=== PATIENT | male | born 1955 | race Caucasian/White ===

== ENCOUNTER → 2023-06-07 12:21 | Outpatient (REF) | payer OTHER, SELFPAY | LOC: RAD 12:21 | PROVIDERS: ATTENDING PHYSICIAN Internal Medicine Pulmonary Disease; FAMILY PHYSICIAN Family Medicine | DX: R91.1 Solitary pulmonary nodule (principal) | CPT/HCPCS: 71250 ==

== ENCOUNTER → 2024-08-15 09:05 | Outpatient (REF) | payer OTHER, SELFPAY | LOC: RAD 09:05 | PROVIDERS: ATTENDING PHYSICIAN Podiatrist; FAMILY PHYSICIAN Family Medicine | DX: I70.223 Atherosclerosis of native arteries of extremities with rest pain, bilateral legs (principal) | CPT/HCPCS: 93925 ==

== ENCOUNTER → 2024-09-03 07:56 | Outpatient (REF) | payer OTHER, SELFPAY | LOC: RAD 07:56 | PROVIDERS: ATTENDING PHYSICIAN Family Medicine | DX: I73.9 Peripheral vascular disease, unspecified (principal); F17.290 Nicotine dependence, other tobacco product, uncomplicated | CPT/HCPCS: 93922 ==

== ENCOUNTER → 2024-09-06 09:23 | Outpatient (REF) | payer OTHER, SELFPAY ==
[2024-09-06 10:43] LABS: Blood Urea Nitrogen 6 mg/dl (9-20); Calcium 10.1 mg/dl (8.4-10.2); Carbon Dioxide 28 mmol/L (22-30); Chloride 96 mmol/L (98-107); Glucose 88 mg/dl (70-99); Potassium 4.3 mmol/L (3.5-5.1); Sodium 129 mmol/L (135-145); eGFR > 60.00
== END ==
LOC: REG 09:23
PROVIDERS: ATTENDING PHYSICIAN Surgery Vascular Surgery; FAMILY PHYSICIAN Family Medicine
DX: I73.9 Peripheral vascular disease, unspecified (principal)
CPT/HCPCS: 36415; 80048

== ENCOUNTER → 2024-09-18 08:24 | Outpatient (REF) | payer OTHER, SELFPAY | LOC: RAD 08:24 | PROVIDERS: ATTENDING PHYSICIAN Surgery Vascular Surgery; FAMILY PHYSICIAN Family Medicine | DX: R09.89 Other specified symptoms and signs involving the circulatory and respiratory systems (principal); I73.9 Peripheral vascular disease, unspecified | CPT/HCPCS: 75635; 93880; Q9967 ==

== ENCOUNTER 2024-09-25 11:59 | Inpatient (IN) | payer OTHER, SELFPAY ==
[2024-09-25] VITALS (15 sets, daily range): BP systolic 0–172; BP diastolic 67–98
--- NOTE | 2024-09-25 10:25 | ED.GENMED ---
History of Present Illness
General
Chief Complaint: Vascular Symptoms
Source: patient
Exam Limitations: none
Time Seen by Provider: 09/25/24 09:51
Nursing documentation reviewed up to this point in time: agreed with
History of Present Illness
History of Present Illness:
see MDM
Phy Exam
Physical Exam
Physical Exam:
GENERAL: Alert , in no apparent distress
EYE: pupils equal and reactive
NECK: Supple
ENT: o/p clr, mmm.
CARDIAC: Regular rate and rhythm . Unable to palpate DP pulse on the right
LUNGS: Clear breath sounds bilaterally, no acute respiratory distress, no wheezes/rales/rhonchi
ABDOMEN: Soft, without focal tenderness, no r/g, no cvat, normal bowel sounds
NEUROLOGICAL: Alert and oriented, no focal neuro deficits
SKIN: Warm and dry, skin intact.
MUSCULOSKELETAL: Slightly swollen right lateral foot, 4th and 5th toes has mild erythema with weeping wound, purulence, foul-smelling, tender
PSYCH: Normal and appropriate interaction.
Course
Orders/Labs/Results
Orders:
Orders
09/25/24 Breakfast
NPO
Allow oral meds: No
Allow clear liquids: No
09/25/24 Lunch
NPO
Allow oral meds: Yes
Allow clear liquids: No
09/25/24 10:15
CRP [C-Reactive Protein] Urgent
Complete Blood Count/With Diff Urgent
Comprehensive Metabolic Panel Urgent
ESR [Erythrocyte Sed Rate] Urgent
PTT Urgent
Prothrombin Time Urgent
09/25/24 10:27
Foot, Right 3 View [CR Foot - Right Min 3 Views] Urgent
Comment:
Reason For Exam: right foot infection
09/25/24 10:39
Type+Screen Urgent
09/25/24 11:40
Admit/Transfer Patient As Directed
Co-Sign Provider:
Level of Care: Inpatient admission
Assign to:: Medical/Surgical
Physician / Group: Hospitalist
Diagnosis: limb threatening chronic ischemia
Reason for Hospitalization: Right foot wound
Expected length of stay greater than two midnights?: Yes
ELOS- Estimated Length of Stay in days: 2
I certify the patient meets the requirements for IP care: Yes
PRN Pain Medication Management As Directed
May give lesser potent ordered pain med per pt: Yes
preference::
Protocol:: Medication orders for pain may be administered in a
manner that supports deferring to patient preference
when the pt is:
- Requesting an ordered lesser potent pain medication.
Least to most potent pain medications are defined
as: acetaminophen < NSAID < tramadol < opioids
(morphine, oxycodone, hydromorphone).
- Requesting a lesser dose of the same medication IF
ORDERED.
- Requesting a less intrusive route of administration
if both routes are prescribed by the provider (PO <
IV).
09/25/24 11:43
Code Status As Directed
Resuscitation Status: Full Code
09/25/24 11:58
ABO2 Urgent
BBK Wristband Number:
Associate notified that ABO2 has been ordered: [id number]
Date: 09/25/24
Time: 10:47
Domestic Helper ID: US
09/25/24 12:57
Vascular Surgery Consult Routine
Consulting Provider: Devan Michaels
Was physician already notified: Yes
Intake/ Output As Directed
Frequency: Per unit guidelines
Vital Signs As Directed
Frequency: Per unit guidelines
DX Deep Vein Thrombosis Video Routine
09/25/24 18:00
Enoxaparin Sodium [Lovenox] 40 mg SC QPM
09/25/24 22:00
Amlodipine [Norvasc] 10 mg PO HS
09/26/24 06:00
Basic Metabolic Panel IN AM
Complete Blood Count/With Diff IN AM
09/26/24 08:00
Aspirin Low Dose EC [Aspir Low (Enteric Coated)] 81 mg PO DAILY
Furosemide [Lasix] 40 mg PO DAILY
Lisinopril [Zestril] 40 mg PO DAILY
Pantoprazole [Protonix] 40 mg PO DAILY
Rosuvastatin Calcium [Crestor] 10 mg PO DAILY
tiotropium-olodaterol [Stiolto Respimat] 2 puff INH R DAILY
Abnormal Lab Results
09/25/24
10:15
WBC 13.9 H 10^3/uL
(4.8-10.8)
RBC 4.31 L 10^6/uL
(4.70-6.10)
MCV 97.7 H fL
(80.0-94.0)
MCH 34.6 H pg
(27.0-31.0)
Plt Count 415 H 10^3/uL
(130-400)
Abs Immat Gran (auto) 0.1 H 10^3/uL
(0-0.05)
Absolute Neuts (auto) 10.9 H 10^3/uL
(1.4-6.5)
Absolute Lymphs (auto) 1.0 L 10^3/uL
(1.2-3.4)
Absolute Monos (auto) 1.4 H 10^3/uL
(0.1-0.6)
Immature Gran % 0.6 H %
(0-0.5)
Neutrophils % 78.6 H %
(42.2-75.2)
Lymphocytes % 7.2 L %
(20.5-51.1)
Monocytes % 9.8 H %
(1.7-9.3)
ESR 34 H mm/hour
(0-20)
Sodium 130 L mmol/L
(135-145)
Chloride 95 L mmol/L
(98-107)
BUN 5 L mg/dl
(9-20)
Glucose 131 H mg/dl
(70-99)
C-Reactive Protein 63.10 H mg/L
(0.0-10.00)
09/25/24 10:15
09/25/24 10:15
Vital Signs
Initial and Last Documented VS:
Initial Vital Signs
Temp Pulse Resp BP Pulse Ox
36.8 C 87 16 172/90 93
09/25/24 09:44 09/25/24 09:44 09/25/24 09:44 09/25/24 09:44 09/25/24 09:44
Last Documented Vital Signs
Temp Pulse Resp BP Pulse Ox
36.8 C 93 24 154/86 91
09/25/24 14:14 09/25/24 14:14 09/25/24 14:14 09/25/24 14:14 09/25/24 14:14
MDM/Problems Addressed
Differential Diagnosis Includes:
see MDM
MDM/Problems Addressed:
Note:
CHIEF COMPLAINT(S)
Non-healing wound on the foot.
HISTORY OF PRESENT ILLNESS
The patient is a 69-year-old male with a history of circulation problems. The patient presents with a non-healing wound on the foot, first noticed approximately two months ago. The wound has been progressively worsening and has begun to emit an
unpleasant odor, indicative of possible infection. The patient was initially evaluated by a vascular clinic and was advised to present to the emergency room, because he will require vascular surgery, he will go to the OR today. The patients
circulation issues, characterized by cold legs and no palpable pulse, have been ongoing and are likely contributing to the poor wound healing.
PAST MEDICAL AND SURGICAL HISTORY
The patient has a history of circulation problems. No history of heart attack was explicitly mentioned.
CHRONIC MEDICAL CONDITIONS SIGNIFICANTLY AFFECTING CARE
The patient has documented circulation problems, likely peripheral artery disease given the vascular clinics involvement.
ALLERGIES
The patient does not report any known allergies.
SOCIAL HISTORY
The patient smokes. There is no mention of the type of product smoked or alcohol consumption.
PHYSICAL EXAM
- Cardiovascular: No palpable pulse in the legs.
lungs: end exp wheezing
msk: mild edema
erythema purulence, wound between 4th and 5th toes on R foul smelling, tender;
leg cool to touch
poor DP pulse
PROBLEM LIST
Acute:
- Non-healing foot wound.
- Potential foot infection.
Chronic:
- Circulation problems.
- Smoking habit.
PLAN
The plan includes the potential for surgical intervention today, as suggested by the vascular clinic. The patient is advised not to eat or drink in preparation for a possible operation. Doppler ultrasound assessment is needed to evaluate the
vascular flow to the affected area.
DIFFERENTIAL DIAGNOSIS
The Differential Diagnosis includes, in no particular order and is not limited to:
1. Peripheral Arterial Disease with Critical Limb Ischemia
2. Diabetic Foot Ulcer
3. Osteomyelitis
4. Cellulitis
5. Chronic Venous Insufficiency
6. Peripheral Neuropathy
7. Deep Vein Thrombosis
8. Necrotizing Fasciitis
9. Thromboangiitis Obliterans
10. Gout Flare-Up
69-year-old male with history of COPD, still smokes, chronic vasculopath, presents for 2 months of a nonhealing foot wound between his 4th and 5th toes on the right which is now weeping, foul-smelling, red and painful. He was seen by vascular
yesterday after having several checkups with them and they determined that he will require vascular surgery, patient will be taken to the OR today. He has been n.p.o. except for few sips of coffee this morning at 6:30 AM. He has not had any fever,
chills.
Patient is due to have a femoropopliteal bypass with a prosthetic valve.
He has a leukocytosis of 13. I will x-ray the foot and order antibiotics, admit to hospitalist
*Pulse Oximetry
SaO2: 93
Oxygen Mode of Delivery: Room air
Patient hypoxic: no (93)
*Critical Care Note
Total Time (30-74mins, 75-104mins- exclusive of procedures): Not Applicable
ED Attending Note
-
Portions of this chart may have been created with voice recognition software.� Occasional wrong word or��sound alike� substitutions may have occurred due to the inherent limitations of voice recognition software.
Discharge Plan
Departure
Patient Disposition: Admit
Date of Disposition: 09/25/24
Time of Disposition: 10:36
Admit to: Med/Surg
Presentation/result/management discussed w/ accepting MD/DO: Hospitalist
Condition: Fair
Covid-19: Not Applicable
Discharge Problem:
Wound of foot, Arterial disease
Interventions
Interventions:
*Risk Screen - Suicide Last Done: 09/25/24 10:05
*General Assessment Last Done: 09/25/24 10:05
*Neglect/Abuse Screening Last Done: 09/25/24 10:05
*ED- Fall Risk Assessment Last Done: 09/25/24 10:05
*ED COVID-19 Vaccine History Last Done: 09/25/24 10:05
*Nursing Disposition Last Done: 09/25/24 14:03
ED- Cardiac Assessment Last Done: 09/25/24 10:05
ED- Pulmonary Assessment Last Done: 09/25/24 10:05
ED-Skin Assessment Last Done: 09/25/24 10:05
Discharge Date and Time
Discharge Date/Time: 09/25/24 14:04
[2024-09-25 10:27] LABS: Hematocrit 42.1 % (39.0-52.0); Hemoglobin 14.9 g/dL (13.0-18.0); Mean Corp Hgb Conc. 35.4 g/dL (33.0-37.0); Mean Corpuscular Volume 97.7 fL (80.0-94.0); Nucleated Red Blood Cells % 0 % (-); Platelet Count 415 10^3/uL (130-400); Red Cell Dist. Width 12.0 % (11.5-14.5)
--- NOTE | 2024-09-25 10:33 | W.PN.UPDATE ---
Update Note
Progress Note Update
Patient seen our vascular office yesterday (09/24/2024) for progressing right foot wound, recommended ED evaluation for expedited revascularization as peripheral vascular disease has progressed to limb threatening chronic ischemia. Please see office
note below. Recommend admitting to hospitalist team given comorbidities, n.p.o., preoperative blood work, and initiation of antibiotics. Plan for revascularization today likely right femoral endarterectomy with Hennessy to popliteal arterial bypass
and possible right iliac stent. Relayed plan to ED provider.
[2024-09-25 10:36] LABS: INR 1.03; PT 14.0 Sec (11.4-14.6)
[2024-09-25 10:37] LABS: APTT 33.0 Sec (23.4-35.0)
[2024-09-25 10:45] LABS: ALT (SGPT) 11 U/L (0-50); AST (SGOT) 23 U/L (17-59); Albumin 3.7 g/dl (3.5-5.0); Alkaline Phosphatase 84 U/L (38-126); Blood Urea Nitrogen 5 mg/dl (9-20); Calcium 9.6 mg/dl (8.4-10.2); Carbon Dioxide 26 mmol/L (22-30); Chloride 95 mmol/L (98-107); Glucose 131 mg/dl (70-99); Potassium 3.8 mmol/L (3.5-5.1); Sodium 130 mmol/L (135-145); Total Protein 6.5 g/dl (6.3-8.2); eGFR > 60.00
[2024-09-25 10:49] LABS: C-Reactive Protein 63.10 mg/L (0.0-10.00)
--- NOTE | 2024-09-25 12:03 | HPS.HSE ---
Family Physician
-
Family Physician: Carl Samuel
Chief Complaint
-
foot wound
History of Present Illness
69 yo M PMH COPD, HTN has a right foot wound between 4th/5th toes for > 2 months, however a few days ago it has purulence, redness, and pain. He has experienced claudication for months in the right lower extremity with pain at rest.
Went to vascular surgery office yesterday and was advised to present to ER for expedited vascular surgery given concern for limb threatening chronic ischemia. He reports pain in right foot but is able to move all toes and sensation to foot is
grossly intact. He denies feeling feverish or chills.
In ED,
VS: 36.8 C, HR 87, RR 16, BP 140/70, Pulsox 93%
Labs n/f WBC 13.9, Plt 415
He was admitted with plans for OR today and started on IV vancomycin.
Medical History
Past Medical History
Past Medical History: Reports COPD, GERD and HTN
Additional Past Medical History:
peripheral arterial disease, alcohol dependence (3 beers/day)
Past Surgical History: Reports Other
Additional Past Surgical History:
no reported hx of revascularization
Social History
Tobacco: Smoker (0.5ppd for 'years')
Alcohol: Daily (3 beers/day)
Drug: None
Family History
Family History: Not pertinent
Allergies / Home Medications
Allergies reflects when Allergies were last updated in [employer].
Home Medications with original date entered in [employer]
Allergy/Medication List:
Allergies
Allergy/AdvReac Type Severity Reaction Status Date / Time
No Known Allergies Allergy Unverified 09/25/24 09:48
Home Medications
amlodipine 10 mg tablet (Norvasc) 10 mg PO HS 09/25/24
aspirin 81 mg tablet,delayed release 81 mg PO DAILY 09/25/24
furosemide 20 mg tablet (Lasix) 40 mg PO DAILY 09/25/24
lisinopril 40 mg tablet 40 mg PO DAILY 09/25/24
naproxen 375 mg tablet 375 mg PO DAILYPRN PRN mild pain 09/25/24
omeprazole 40 mg capsule,delayed release 40 mg PO DAILY 09/25/24
rosuvastatin 10 mg tablet (Crestor) 10 mg PO DAILY 09/25/24
therapeutic multivitamin 1 tab PO DAILY 09/25/24
tiotropium 2.5 mcg-olodaterol 2.5 mcg/actuation mist for inhalation (Stiolto Respimat) 2 puff inhalation R DAILY 09/25/24
Review of Systems
-
Constitutional: Reports No Symptoms
EENT: Reports No Symptoms
Respiratory: Reports No Symptoms
Cardiac: Reports No Symptoms
Abdomen/GI: Reports No Symptoms
Musculoskeletal: Reports No Symptoms
Physical Exam
Vital Signs
Vital Signs
Temp Pulse Resp BP Pulse Ox
98.3 F 87 16 140/70 93
09/25/24 09:44 09/25/24 09:44 09/25/24 09:44 09/25/24 10:13 09/25/24 10:27
Physical Exam
General: No Apparent Distress
HEENT: NormoCephalic
Respiratory: Wheezes (at end expiration)
Cardiac: Regular Rhythm and Other (no murmurs on my exam)
GI: Soft and Non Tender
Musculoskeletal: Other (both feet are edematous to the level of the ankles, R > L)
Skin: Other (wound on 4th/5th toe with purulence, skin is cool to touch, pulses not palpable b/l (pos. tibial, dorsal pedis); sensation is intact and ablde to move all toes)
Neuro: AO x 3 and Nonfocal/grossly intact
Psych: Calm
Laboratory Results
-
09/25/24 10:15
09/25/24 10:15
Laboratory Results
PT 14.0 Sec (11.4-14.6) 09/25/24 10:15
INR 1.03 09/25/24 10:15
APTT 33.0 Sec (23.4-35.0) 09/25/24 10:15
Total Bilirubin 0.7 mg/dl (0.2-1.3) 09/25/24 10:15
AST 23 U/L (17-59) 09/25/24 10:15
ALT 11 U/L (0-50) 09/25/24 10:15
Alkaline Phosphatase 84 U/L (38-126) 09/25/24 10:15
CRP 63.1
Studies:
Abdominal CT 09/18/2024
IMPRESSION:
1. RIGHT LOWER EXTREMITY: Severe peripheral arterial disease. Multifocal 50-75% stenoses within the right common iliac artery and right external iliac artery. Occlusion of the right internal iliac artery near the origin. Suspected occlusion of the
distal right common femoral artery, with reconstitution of the profunda femoris artery. Right SFA is occluded near its origin, with reconstitution of the mid and distal SFA. High-grade stenosis within the right distal SFA.
2. LEFT LOWER EXTREMITY: Moderate peripheral arterial disease. Multifocal 50-75% stenoses of the left external iliac artery. Approximately 50% stenosis of the left common femoral artery. Greater than 75% stenosis of the proximal left SFA. Multifocal
50-75% stenoses of the remainder of the left SFA.
3. Asymmetric atrophy of the left kidney relative to the right, which may be related to left renal arterial high-grade stenosis and possible focal occlusion near the origin.
4. Estimated 50-75% stenosis of the proximal SMA.
5. Groundglass airspace consolidation at the left lung base, which may represent subsegmental atelectasis or pneumonia.
6. Calcified pleural plaque at the right lung base, consistent with asbestos related pleural disease.
7. Mild prostatic enlargement.
Ankle Brachial indices from 09/03/2024
right: 0.33
left: 0.67
Impression/Plan
-
In summary, this is a 69 yo M who is a vasculopath with a chronic wound on right foot that has worsened with erythema, purulence concerning for an skin/subcutaneous tissue infection.
# Limb threatening chronic ischemia
# Peripheral arterial disease
- wound ulcer present in right foot for several months
- progressively worsened with concern now for superimposed infection
- sequelae of long standing peripheral arterial disease
- skin on lower extremities exhibits coolness, pallor, but no paresthesias or paralysis. He endorses pain - claudication, and tenderness to the wound
- CT angiogram shows occlusive plaque burden and KIMBERLI on right of 0.33, supports PAD
- per vascular surgery, plan is today OR for revascularization today
- trend CBC, monitor VS, f/u vascular surgery recommendations
# SSTI - infected foot ulcer
- purulence (on my exam) on right foot now points towards a skin/subcutaneous tissue infection
- sequelae of longstanding peripheral arterial disease
- ddx: localized wound ulcer infection, septic arthritis, cellulitis, abscess
- wound healing is impaired due to PAD and above
- afebrile but leukocytosis and thrombocytosis support ongoing infection
- IV vancomycin started
- f/u vascular surgery recommendations
# Tobacco/EtOH Substance abuse
- Ongoing tobacco use
- nicotine patches
- monitor for EtOH withdrawal (3 beers daily)
- LFTs are within normal limits
# Chronic issues per below
# HTN - continue amlodipine 10mg daily, lisinopril 40mg daily, furosemide 20mg daily
# COPD - continue [id number] inhalers daily
# GERD - continue omeprazole 40mg daily
Disposition: pending further medical workup
Code status: Full
Diet: npo given plan for OR
[2024-09-25] MEDS: VANCOCIN 540 MG IV (12:52)
--- NOTE | 2024-09-25 15:09 | W.SUR.PREOP ---
Pre-Operative Surgical Note
-
I have examined this patient prior to the performance of the scheduled procedure.
The patient's condition is unchanged from the time of the current History and
Physical and the patient is able to undergo the scheduled procedure.
--- NOTE | 2024-09-25 15:55 | PHA.VAN.IN ---
Assessment
- Assessment
Renal Function: Appears similar to baseline
AUC Dosing Plan
- Dosing Variables
Dosing Weight (kg): 74
Dosing CrCl (ml/min): 98
Vd coefficient (L/kg): 0.7
- Empiric Dosing
Initial / Loading Dose: 2000mg - 09/25 12:52
Maintenance Regimen: Vanc 1000mg Q12H starting 09/26 0600
Estimated AUC (mcg*h/mL): 470
Estimated Peak (mcg*h/mL): 30
Estimated Trough (mcg/ml): 11.7
Estimated Half Life (H): 8.1
- Monitoring
No levels ordered at this time: consider levels in next few days
Pharmacokinetics Vancomycin I
- -
Patient Age: 69
Patient Sex: Male
Vancomycin Day #: 1
Indication: Skin And Soft Tissue
Requesting Provider: Dr. Ivory (resident)
Pertinent Antimicrobial Allergies:
NKDA
Height / Weight:
Height 5 ft 9 in
Actual Weight 74 kg
Pertinent Past Medical History: PAD
- Vital Signs / Lab Results
Temp Pulse Resp BP Pulse Ox
98.2 F 93 24 154/86 91
09/25/24 14:14 09/25/24 14:14 09/25/24 14:14 09/25/24 14:14 09/25/24 14:14
Lab Results - Hematology
09/25/24
10:15
WBC 13.9 H
Lab Results - Chemistry
09/25/24
10:15
BUN 5 L
Creatinine 0.7
Albumin 3.7
[2024-09-25 18:19] LABS: GGTP 28 U/L (15-73); Magnesium 1.5 mg/dl (1.6-2.3)
--- NOTE | 2024-09-25 19:10 | W.SUR.POST ---
Surgical Immediate Post Op
Note
Pre Op Diagnosis: Peripheral arterial disease, nonhealing wound
Post Op Diagnosis: Peripheral arterial disease, nonhealing wound
Procedure Performed: Right femoral endarterectomy with bovine pericardial patch angioplasty, right femoral to above-knee popliteal arterial bypass utilizing propatent graft, exploration of saphenous vein
Primary Surgeon: Devan Michaels M.D.
occupational therapist assistants: Teresa Das NP-C
Anesthesia: GETA
Estimated Blood Loss: 30 mL
Fluids: See anesthesia flowsheet
Drains/Shunts: N/A
Specimens/Cultures: Right femoral plaque
Doppler/Duplex/Angio (Y/N): Y, Doppler
Complications: None
Operative Findings: Successful arterial graft from right femoral to above-knee popliteal utilizing propatent graft and femoral endarterectomy, postoperatively patient had Doppler PT and AT signal
[2024-09-25 19:38] LABS: Hematocrit 37.6 % (39.0-52.0); Hemoglobin 13.1 g/dL (13.0-18.0); Mean Corp Hgb Conc. 34.8 g/dL (33.0-37.0); Mean Corpuscular Volume 97.7 fL (80.0-94.0); Platelet Count 374 10^3/uL (130-400); Red Cell Dist. Width 12.3 % (11.5-14.5)
--- NOTE | 2024-09-25 19:45 | OR.RPT ---
Operative Report
Operative Report
PROCEDURE DATE: 09/25/2024
Preoperative diagnosis: Chronic limb threatening ischemia right lower extremity with gangrene and rest pain right foot.
Postoperative diagnosis: Same
Procedure:
1. Extensive right iliofemoral endarterectomy (distal external iliac artery, common femoral artery, profunda femoris artery, origin of SFA) with bovine pericardial patch angioplasty and profundoplasty.
2. Right femoral to [id number] popliteal artery bypass with 8 mm ringed [place] Propaten graft.
Surgeon: Brando
Contracts Law Professor: MARTHA Das, required for all aspects of procedure including assistance with traction/countertraction, following the suture line, assistance with closure.
Complications: None
Anesthesia: General
Indications for procedure:
Chronic limb threatening ischemia. Worsening foot exam. Worsening rest pain. Concern for early infection of the foot as well. History of gangrene. CAT scan demonstrated severe atherosclerosis and severe plaque disease throughout with multilevel
occlusive disease. Risk/benefits/alternatives of urgent revascularization were all fully discussed. Patient understood all wish to proceed. I also strongly counseled patient regarding smoking cessation.
Description of procedure:
Patient was identified brought to the operating room placed on the table in supine position. After the adequate administration of anesthesia he was prepped and draped in the standard surgical fashion. A standard preoperative timeout was undertaken
and everybody was in agreement the plan. A longitudinal incision was made in the right groin is carried through the skin subcutaneous tissue with the electrocautery. We dissected down to the level of the inguinal ligament. Of note the tissues
were somewhat almost inflamed appearing chronically, dissected like scar tissue. Likely due to the inflammatory reaction secondary to the bulky plaque in the artery. However once down to the inguinal ligament we chiseled away at the common femoral
artery and carefully circumferentially dissected it. In the groin there was not really a pulse. However when we dissected underneath the inguinal ligament, I could palpate a good distal external iliac artery pulse. I dissected cephalad to the
lateral circumflex iliac artery branch, but just distal to the medial branch. The artery was soft and had a good pulse. I therefore passed a vessel loop around it here. In addition a vessel loop was passed around the circumflex iliac artery
branch. We chiseled down to the femoral bifurcation. The SFA also was noted to have heavy bulky plaque to palpation. I circumferentially dissected it (it was chronically occluded proximally) and passed Vesseloops around it. I now carefully
dissected the profunda. There were a couple crossing veins that had to be ligated between silk ties and then divided to allow better mobilization. After about 3 cm down the profunda (any branches were controlled with Vesseloops, just small
branches though no main branches), I noted that the artery was softened. Based on the CT scan also the artery was patent at this juncture. It was occluded only at its origin. Therefore I passed a vessel loop around it here. Now that I had
control of the femoral bifurcation, additional branch was controlled on the lateral/posterior aspect of the femoral bifurcation.
Now we turned our attention to exposing the distal target. A longitudinal incision was made in the medial distal thigh of the right leg that was carried through the skin to retained tissue with the electrocautery. We dissected through the crural
fascia layer. The sartorius muscle was reflected posteriorly. In the loose areolar fatty tissue we identified the popliteal artery and carefully dissected away from surrounding structures and great care to avoid any injury to structures. Is noted
to be relatively soft here. Vesseloops were passed around it proximally and distally.
Now that we had proximal and distal control I made an incision in the medial proximal calf that was carried through the skin subcutaneous tissue to identify the greater saphenous vein. The greater saphenous vein was identified. It looked marginal.
There was a branching point which I noted on ultrasound, and it became smaller after that. However it still seemed marginal at best. I continued to dissect it for another 5 cm or so but it was too small. I felt that this vein was not usable.
Therefore I felt the best option was to use a prosthetic at this point to the above-knee popliteal artery. Therefore at this point we then used a Aracelis tunneler to create a subsartorial tunnel between the 2 arterial exposure sites. Next the
patient was given 6000 units of intravenous heparin. Once this had circulated, the profunda was clamped distally with a profunda clamp, vessel loop around the SFA was tightened, all other branch Vesseloops were tightened, Derra clamp was placed on
the distal external iliac artery. An arteriotomy was made on the profunda with an 11 blade, and then it was extended proximally with a Marquis scissor. On the profunda there was chronic thickened soft plaque or intimal thickening. But on the distal
common femoral there was severe, severe coral reef bulky plaque. In addition at the proximalmost aspect of the common femoral/distal external iliac artery there was some associated thrombus here. I really struggle to endarterectomized as getting
the endarterectomy plane was more challenging than usual due to the bulky nature of the plaque. However I finally was able to get a reasonable plane. I then grasped the plaque and pulled it out proximally. I could inspect my endpoint against the
clamp and it looked good proximally. I teased out any fine debris with fine forceps. Now I reapplied my clamp a little bit more distally so that I have better control of the inflow. There is excellent pulsatile inflow pulsation proximal to the
clamp. I now grasped the remainder of the plaque in the common femoral artery and carefully endarterectomized it out and achieved a nice clean endpoint in the profunda. I then grasped the plaque and everted at the origin of the SFA. Once I did
this we meticulously removed any fine debris throughout the endarterectomy surface with fine forceps. Once this was done we irrigated heparinized saline. We then used a bovine pericardial patch and show patch angioplasty using a running 6-0
Prolene suture. Prior to completing and tying down the suture line the arteries were backbled, and heparinized saline flush. We then released clamps temporarily. Excellent pulsatile flow was noted in the common femoral and profunda. Hemostasis
was noted along the suture line.
Now I reapplied the clamps on the profunda and the common femoral artery. Arthrotomy on the patch (patchotomy) was made with an 11 blade and extended using a Marquis scissor. I now beveled an 8mm [place] Propaten ringed graft, and sewed an end-to-side
anastomosis using a running [place] CV 6 suture. A complete and tied down my suture line and then released the clamps on the kaw vessels. Excellent pulsatile flow was noted into the graft. Of course the graft clamp was placed on the graft after I
de-aired it/flushed out. Now I carefully passed it through the tunnel that we created. Care was taken to avoid any kinking or twisting. Any laxity was removed. We now reexposed the popliteal artery and the Vesseloops were double looped and
tightened proximally and distally. Arteriotomy was made with an 11 blade and extended using a Marquis scissor. There was slight thickening or plaque but do not result in any stenosis. Reasonably patent lumen. The graft was now beveled and an end
to side anastomosis was fashioned using a running [place] CV 6 suture. Prior to completing and tying down the suture line, the kaw artery was backbled, and the graft was flushed. I then flushed heparinized saline and completed and tied on the
suture line. Next I released the proximal popliteal artery vessel loop, and then released the graft clamp, and finally released the outflow vessel loop. Excellent pulsatile flow was noted in the popliteal artery distally. A significantly graft
augmented Doppler signal was noted. At this point I was very satisfied.
We now meticulously achieved hemostasis throughout incision sites. All sites were irrigated. The saphenous vein exploration incision was closed with 3-0 Vicryl followed by skin clips. The arterial sites were closed with layered Vicryl suture
using 2-0 Vicryl, 3-0 Vicryl running sutures followed by skin clips. Dressings were applied. The patient tolerated the procedure well. He had an excellent posterior tibial signal in the foot upon completion. All sponge, needle, instrument counts
were correct at the end of the case. The patient was transported to recovery room in stable condition.
[2024-09-25 19:51] LABS: APTT 36.3 Sec (23.4-35.0); INR 1.12; PT 15.0 Sec (11.4-14.6)
[2024-09-25 19:59] LABS: Blood Urea Nitrogen 5 mg/dl (9-20); Calcium 8.1 mg/dl (8.4-10.2); Carbon Dioxide 28 mmol/L (22-30); Chloride 98 mmol/L (98-107); Estimated Creatinine Clearance 115 ml/min; Glucose 114 mg/dl (70-99); Potassium 3.9 mmol/L (3.5-5.1); Sodium 132 mmol/L (135-145); eGFR > 60.00
[2024-09-25] MEDS: DILAUDID 0.5 MG IV ×2 (20:04→21:24)
[2024-09-25] MEDS: NSS 1000 IV (20:24)
--- NOTE | 2024-09-25 20:49 | PTCARENOTE ---
Addendum entered by Perla Landin RN 09/26/24 00:10:
Right 5th digit ulceration and necrosis posteriorly to foot pad, foul smelling purulent drainage between 4th and 5th digits of right foot.
Original Note:
Patient received from PACU via bed accompanied by RN and Tech. Patient transferred and admitted to ICU bed 3365. Patient is alert and oriented. CHG cloth bath given. Afib on CM. See automatic operator charted on worklist flowsheet. Left lung clear, right
lung with expiratory wheezes t/o. Currentlly on 4L/nc O2, sats 95-96%. S1S2 irregular. BLE PT and DP pulses positive with doppler. RLE pink, Warm and dry; LLE pale, warm and dry. Left Audrey in place, leveled and zeroed, correlates with cuff BP. RLE
with upper leg gauze and tegaderm CDI with SHYLA drain flashing orange--was reinforced by TORSION SPRING [employer]ILING MACHINE SETTER and MD aware. RLE lower leg with guaze and tegaderm dressing CDI with SHYLA drain flashing green. Bed in low and locked position, call montes within reach.
Johnson cath patent draining clear yellow urine. Speech is gruff. Patient with strong loose NPC. Patient c/o significant pain of right LE 8-9/10. Medicated for pain with prn pain meds, see MAR. Takes po ice chips without incident, takes po meds with
small sips well.
[2024-09-25 21:03] LABS: Glucose - Point of Care 126 mg/dl (70-99)
[2024-09-25] MEDS: ROXICODONE 5 MG PO (21:05)
[2024-09-25] MEDS: NORVASC 10 MG PO (21:15)
[2024-09-25] MEDS: NICODERM TRANSDERMAL 14 MG TRANSDERM (21:23)
[2024-09-25] MEDS: LOVENOX 40 MG SC (21:24)
[2024-09-25 21:47] LABS: Magnesium 1.7 mg/dl (1.6-2.3)
[2024-09-25] MEDS: MAGNESIUM SULFATE 100 IV (22:56)
--- NOTE | 2024-09-25 23:00 | PTCARENOTE ---
Patient allowed ice chips, passed swallow eval. Permssion received from Dr. Michaels to advance diet to clear liquids.
[2024-09-25 23:26] LABS: Urine Character Clear (Clear)
[2024-09-25 23:49] LABS: Urine Red Blood Cell 26-30 /HPF (0-2); Urine Squamous Cell 0-2 /LPF (Few)
[2024-09-26] VITALS (24 sets, daily range): BP systolic 89–126; BP diastolic 54–104; BMI 24.9
--- NOTE | 2024-09-26 | PTCARENOTE ---
Addendum entered by Perla Landin RN 09/26/24 00:35:
oxygen increased to 5L/nc
Original Note:
Patient noted with episodes of desaturation with sleep. Desats with sleep to 83-86%. Patient roused from sleep easily and encouraged to DB&C with sats improved. Pedal pulse palpable right foot, post tib via doppler. Otherwise, no significant change
in patient's physical assessment.
[2024-09-26] MEDS: ROXICODONE 5 MG PO ×4 (00:54→20:11)
--- NOTE | 2024-09-26 03:45 | PTCARENOTE ---
Patient has more frequent cough, loose and Nonproductive. Wheezes no longer audible on the right but RML and RLL have fine crackles, RUL and Left lung are clear. Oxygen decreased back down to 4L/nc. BP stable, ongoing Afib on CM. States pain of
right leg is tolerable. No other change in physical assessment. Dozing off and on intermittently when undisturbed. Ongoing hourly neurovascular checks.
[2024-09-26 04:54] LABS: Hematocrit 38.0 % (39.0-52.0); Hemoglobin 12.8 g/dL (13.0-18.0); Mean Corp Hgb Conc. 33.7 g/dL (33.0-37.0); Mean Corpuscular Volume 99.5 fL (80.0-94.0); Nucleated Red Blood Cells % 0 % (-); Platelet Count 377 10^3/uL (130-400); Red Cell Dist. Width 12.2 % (11.5-14.5)
[2024-09-26] MEDS: VANCOCIN 200 IV ×2 (05:01→17:24)
[2024-09-26 05:18] LABS: Blood Urea Nitrogen 9 mg/dl (9-20); Calcium 8.7 mg/dl (8.4-10.2); Carbon Dioxide 29 mmol/L (22-30); Chloride 98 mmol/L (98-107); Estimated Creatinine Clearance 98 ml/min; Glucose 130 mg/dl (70-99); HDL Cholesterol 50 mg/dl; LDL Cholesterol, Calculated 37 mg/dl; Potassium 4.3 mmol/L (3.5-5.1); Sodium 130 mmol/L (135-145); Very Low Density Lipoprotein 12 mg/dl (0-30); eGFR > 60.00
[2024-09-26 05:19] LABS: INR 1.10; PT 14.7 Sec (11.4-14.6)
[2024-09-26 05:20] LABS: APTT 38.9 Sec (23.4-35.0)
--- NOTE | 2024-09-26 07:08 | W.PN.HOSP.TC ---
Today's Communication/Plan
-
- plan for OR today with podiatry
- f/u vascular surgery recs
- f/u cardiology recs
- monitor CBC, VS
Assessment / Plan
Assessment / Plan
In summary, this is a 69 yo M
# Purulent cellulitis
# Peripheral artery disease s/p right iliofemoral endarterectomy with bovine plasty angioplasty and right fem pop bypass
# Limb threatening chronic ischemia
- 4th/5th toe wound present with purulence
- per podiatry, amputation of 4th/5th toe tentatively today (npo currently)
- IV vancomycin and cefepime added on
- monitor CBC (WBC likely is reactive from operation yesterday)
- monitor VS (Afebrile)
- continue rosuvastatin 20mg (LDL at goal)
- incentive spirometry
- f/u podiatry recs
- f/u vascular recs
# atrial flutter with controlled ventricular response
- new onset, occurred in PACU; was also supposed to follow-up with cardiology for cardiac ischemic workup
- cardiology recommends eventual anticoagulation but not at present given further surgical intervention
- check TSH, proBNP
- f/u cardiology recs
# Tobacco/EtoH use
- spiriva daily and duonebs prn for probable COPD
- nicotine patches
- credit counselor on smoking cessation
- monitor for EtOH symptoms
# Chronic issues per below
# HTN - continue amlodipine 10mg daily, lisinopril 40mg daily, furosemide 20mg daily
# COPD - continue mibktnodia-gdfttrk-vejifojoys inhalers daily
# GERD - continue omeprazole 40mg daily
DVTppx: enoxaparin
Code: full
Anticipated Discharge: > 48 hours
Subjective/Interval History
-
Date of Service: September 26, 2024
no overnight events, revascularization procedure yesterday
cardiolgoy and podiatry have been consulted
he's doing well
Objective Data
-
Labs:
Laboratory Results
09/25/24 09/26/24
19:27 04:43
WBC 16.2 H 16.3 H
Hgb 13.1 12.8 L
Hct 37.6 L 38.0 L
Plt Count 374 377
PT 15.0 H 14.7 H
INR 1.12 1.10
APTT 36.3 H 38.9 H
Sodium 132 L 130 L
Potassium 3.9 4.3
Chloride 98 98
Carbon Dioxide 28 29
BUN 5 L 9
Creatinine 0.6 L 0.7
Glucose 114 H 130 H
Calcium 8.1 L D 8.7
lipipd panel
triglycerides: 61
total cholesterol: 99
LDL: 37
VLDL 12
HDL 50
A1c 5.2
Vital Signs:
Vital Signs
Temp Pulse Resp BP Pulse Ox
97 F 85 14 118/74 96
09/26/24 03:01 09/26/24 07:00 09/26/24 07:00 09/26/24 04:00 09/26/24 07:00
I&O
09/25/24 09/26/24 09/27/24
06:59 06:59 06:59
Intake Total 1540 / 1540
Output Total 1658 / 1658
Balance -118 / -118
Review of Systems
-
History Source: Patient
Constitutional: Reports No Symptoms
EENT: Reports No Symptoms Reported
Respiratory: Reports Cough
Cardiac: Reports No Symptoms
Abdomen/GI: Reports No Symptoms
Genitourinary: Reports No Symptoms
Musculoskeletal: Reports No Symptoms
Skin: Reports No Symptoms
Neuro: Reports No Symptoms
Physical Exam
-
General: No Apparent Distress
HEENT: Normocephalic
Respiratory: Wheezes (expiratory)
Cardiac: Regular Rhythm and Other (no murmurs on my exam)
GI: Soft and Nontender
Musculoskeletal: Other (both feed edematous to level of ankles)
Skin: Other (wound on 4th/5th toes, pulses difficult to palpate on my exam at dorsalis pedis, pos tibial; sensation and movement grossly intact)
Neuro: Awake and Alert
Psych: Calm
--- NOTE | 2024-09-26 07:09 | PTCARENOTE ---
Report given verbally to oncoming shift, Lizzette NATION. Bedside rounds completed, questions answered.
--- NOTE | 2024-09-26 07:18 | CON.INTV ---
Consultation
Consultation Request
Date/Time Consultation Requested: 09/26
Date/Time Consultation Performed: 09/26
Reason for Consultation: Critical care
Medical History
-
History of Present Illness:
History obtained from the patient and reviewing inpatient and outpatient records. Patient is not a great historian. Patient is a 69-year-old male who presents to [facility] with with right foot discomfort. He was being evaluated for
white foot wound as an outpatient. He was seen in the vascular office, and there was a concern regarding ischemia. Patient was sent to [facility]. He subsequently underwent right femoral endarterectomy with bovine pericardial patch
angioplasty without significant complication 10/03. We are asked to help from critical care standpoint
Presently, he is without shortness of breath, chest pain, lightheadedness, nausea, abdominal pain. He denies leg pain, foot pain or groin pain at this time
Patient has been complaining of progressive claudication especially in the right calf and the right thigh as an outpatient. He had poorly healing ulcer in his right foot at the bottom of his fifth digit.
.
PMH: Hypertension, hyperlipidemia, GERD, COPD, alcohol dependence. 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
Past Medical History
Past Medical History: None (See above)
Past Surgical History: None (See above)
Social History
Tobacco: Smoker (50+ pack year, up to 1.5 pack/day, sometimes more)
Alcohol: Daily (4-12 beers a day)
Drug: None
Personal:
Living: Alone
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
Family History
Family History: Other (5 children. Father at 85, mother at 54 with heart issues. 9 siblings. 1 sister with cardiac stent)
Allergies / Home Medications
Allergies
Allergy/AdvReac Type Severity Reaction Status Date / Time
No Known Allergies Allergy Unverified 09/25/24 09:48
Home Medications
�Medication �Instructions �Recorded �Confirmed �Last Taken �Type
amlodipine 10 mg tablet (Norvasc) 10 mg PO HS 09/25/24 09/25/24 09/24/24 History
aspirin 81 mg tablet,delayed 81 mg PO DAILY 09/25/24 09/25/24 09/25/24 History
release
furosemide 20 mg tablet (Lasix) 40 mg PO DAILY 09/25/24 09/25/24 09/25/24 History
lisinopril 40 mg tablet 40 mg PO DAILY 09/25/24 09/25/24 09/25/24 History
naproxen 375 mg tablet 375 mg PO DAILYPRN PRN mild pain 09/25/24 09/25/24 09/25/24 History
omeprazole 40 mg capsule,delayed 40 mg PO DAILY 09/25/24 09/25/24 09/25/24 History
release
rosuvastatin 10 mg tablet (Crestor) 10 mg PO DAILY 09/25/24 09/25/24 09/25/24 History
therapeutic multivitamin 1 tab PO DAILY 09/25/24 09/25/24 09/25/24 History
tiotropium 2.5 mcg-olodaterol 2.5 2 puff inhalation R DAILY 09/25/24 09/25/24 09/25/24 History
mcg/actuation mist for inhalation
(Stiolto Respimat)
Review of Systems
-
All other systems: Negative unless noted
Vitals / Labs / Diagnostic Testing
Vital Signs
Temp Pulse Resp BP Pulse Ox
97 F 85 14 118/74 96
09/26/24 03:01 09/26/24 07:00 09/26/24 07:00 09/26/24 04:00 09/26/24 07:00
Lab Data
09/26/24 04:43
09/26/24 04:43
Laboratory Results
09/25/24 09/25/24 09/26/24
10:15 19:27 04:43
PT 14.0 15.0 H 14.7 H
INR 1.03 1.12 1.10
APTT 33.0 36.3 H 38.9 H
Diagnostic Testing:
Physical Exam
-
HEENT: Normocephalic, Anicteric, Other (Upper extremity) and Other (Missing teeth)
Cardiovascular: S1/S2, Regular Rhythm, Murmur (n), Rub (n) and Peripheral Edema (tr)
Respiratory: Wheeze (n), Rales (n), Rhonchi (n) and Non-Labored Respirations
GI: Soft, Distended and Non Tender
Neurology: Awake, Alert and No Motor Deficits (Moves all extremities)
Skin: Other (Right fifth toe ulcer, drainage, foul order) and Other (Multiple tattoos)
General: Comfortable
Assessment
-
69-year-old male with history of hypertension, peripheral vascular disease, with poorly healing right fifth toe, with progressive claudication symptoms as an outpatient. He is status post right femoral endarterectomy with bovine patch angioplasty
and right femoral to above-knee popliteal bypass 09/25/2024
s/p RFEA, right femoral to above-knee popliteal bypass
09/25/2024
Poorly healing right fifth toe ulcer at risk for amputation
Claudication symptoms progressive as outpatient
Right upper lobe nodule 8.[address] chest 06/07/2023
Chronic right lung volume loss likely from multiple traumas in the
Mediastinal calcification
Right middle lobe rounded atelectasis, per CT chest 06/26/2023
Conditions present prior to admission
Hypertension/hyperlipidemia
History of peripheral neuropathy
History of trauma, TBI
Complicated by multiple pneumothoraces
Pulmonary embolism, IVC filter
GERD
Suspected COPD
Daily alcohol use, 4 beers
[id number] history of smoking, ongoing
Plan/recommendations
At this time, patient remains critically ill but appears comfortable. He denies any pain
Right groin intact with dressing, distal pulses palpable, feet warm
Right fifth toe ulceration noted
Moving forward
Continue with IV fluids
Remains on empiric antibiotics, vancomycin for now. Patient may need broader antibiotic therapy but this will be deferred to primary service/vascular
Wound care consult, podiatry consult
Patient denies being on any antibiotics over the last few months although it appears he is a poor historian, poor memory
Tobacco cessation discussed. Nicotine replacement
Okay to continue Spiriva and Striverdi for now, patient on outpatient Stiolto
With regards to prior CT imaging, he is overdue for follow-up CT imaging, lung cancer screening. He is considered high risk for lung cancer
He will require follow-up for right upper lobe nodule. Would recommend CT chest as outpatient post discharge
DVT prophylaxis: Enoxaparin
GI prophylaxis: Remains on Protonix
[2024-09-26] MEDS: NSS IV (07:24)
--- NOTE | 2024-09-26 07:51 | W.PN.VS ---
Addendum entered and electronically signed by Devan Michaels MD 09/26/24 09:41:
Seen and examined with MARTHA Das. Agree with findings as noted below. Patient notes his rest pain in the right foot has resolved status post revascularization. No other complaints. Right lower extremity dressings are clean dry and intact. Groin
is flat. Thigh and calf are soft, no hematoma. Foot is warm with excellent dopplerable PT signal, possible weak pulsation. Plan/as discussed and noted below. Will ask cardiology for evaluation regarding A-flutter noted in postop setting.
Original Note:
Today's Communication / Plan
-
Patient seen and examined at bedside with Dr. Devan Michaels M.D., below plan reviewed with attending.
Assessment/Plan
-
Assessment: 69-year-old male POD #1Extensive right iliofemoral endarterectomy (distal external iliac artery, common femoral artery, profunda femoris artery, origin of SFA) with bovine pericardial patch angioplasty and profundoplasty. Right femoral
to [id number] popliteal artery bypass with 8 mm ringed [place] Propaten graft.
Plan:
Discontinue IV fluids
Discontinue Johnson catheter
Discontinue arterial line
Consult to cardiology as patient was undergoing cardiac ischemia workup prior to this procedure in the outpatient setting. However, when wound progressed to demonstrating chronic limb threatening ischemia patient was taken urgently to the OR
yesterday, anesthesia noted to our team in PACU a flutter was witnessed on bedside telemetry, unfortunately strip was not captured at that time. EKG today.
Consult to podiatry for right foot 4th and 5th digit wound
Out of bed to chair today
Incentive spirometry
Encourage smoking cessation education
Continue ICU level care today
Subjective Data
-
Date of Service: September 26, 2024
Patient seen and examined at bedside, reports well-managed postoperative pain. Denies nausea, vomiting, fever, and chills. Reports tolerating clear liquid diet.
Objective Data
-
Vital Signs
Temp Pulse Resp BP Pulse Ox
97 F 85 14 118/74 96
09/26/24 07:30 09/26/24 07:00 09/26/24 07:00 09/26/24 04:00 09/26/24 07:00
Intake and Output
09/25/24 09/26/24 09/27/24
06:59 06:59 06:59
Intake Total 1540 / 1540
Output Total 1658 / 1658
Balance -118 / -118
Intake:
Oral fluids 300 / 300
IV fluids (Total) 940 / 940
NSS 300 / 300
Nss 1,000 ml @ 80 mls/hr IV . 640 / 640
[id number] HARJIT Rx#:[id number]
IV piggybacks 300 / 300
Output:
Drain Output (Total) 0 / 0
Right Upper Leg 0 / 0
Urine, Johnson 1208 / 1208
Urine, Voided 450 / 450
Lab Results
09/26/24 04:43
09/26/24 04:43
Calcium 8.7 mg/dl (8.4-10.2) 09/26/24 04:43
Phosphorus Cancelled 09/25/24 14:18
Magnesium 1.7 mg/dl (1.6-2.3) 09/25/24 19:27
Total Bilirubin 0.7 mg/dl (0.2-1.3) 09/25/24 10:15
AST 23 U/L (17-59) 09/25/24 10:15
ALT 11 U/L (0-50) 09/25/24 10:15
Alkaline Phosphatase 84 U/L (38-126) 09/25/24 10:15
Total Protein 6.5 g/dl (6.3-8.2) 09/25/24 10:15
Albumin 3.7 g/dl (3.5-5.0) 08/20/25 10:15
Physical Exam
-
No apparent distress, resting bed comfortably
No tachycardia
No dyspnea on room air
ABD rotund, nontender, nondistended
Right lower extremity surgical stefanie dressing clean, dry, and intact, right PT and AT signal, right foot warm, right 4th and 5th digit wound remains unchanged, right foot warm
Johnson draining clear yellow urine
--- NOTE | 2024-09-26 08:00 | PTCARENOTE ---
Received pt. @ change of shift. Pt. drowsy, awakens to verbal stim, oriented x3, reports pain w in acceptable level. RLE neurovascular checks completed w off going RN- see flow sheet. A fib on monitor. +2 RLE edema. +dp/pt pulses d/l via doppler.
SpO2 95% on 4LNC; pt. reports this is his baseline O2 @ home. Auscultated dim/exp wheeze throughout. Occ harsh back end engineer cough @ x's. RT instructed pt. on use of IS; pt. demonstrated understanding. Tolerating diet. 16F mcallister in place draining yellow
urine. R 4th/5th toe necrotic venous wound covered w sterile 4x4 gauze; further orders received for podiatry lead applier. R thigh SHYLA dressing c/d/i; device flashing orange, vascular aware per nightshift RN. R knee SHYLA dressing c/d/i; device flashing
green. #18 R wrist w NSS @ 80mL/hr; #20 R AC patent, dressing c/d/i. L rad art line transduced, calibrated, and monitored; all ports patent and secured; correlates w cuff pressures. Pt. call simon casarez in reach, instructed on how to report care
concerns.
[2024-09-26] MEDS: SPIRIVA RESPIMAT 2.5 MCG 2 PUFF INH (08:04)
[2024-09-26] MEDS: STRIVERDI RESPIMAT 2 PUFF INH (08:04)
[2024-09-26] MEDS: ZESTRIL 40 MG PO (08:09)
[2024-09-26 08:10] LABS: Glycohemoglobin (HgbA1c) 5.2 % (4.0-5.6)
[2024-09-26] MEDS: ASPIR LOW (ENTERIC COATED) 81 MG PO (08:10)
[2024-09-26] MEDS: FOLVITE 1 MG PO (08:10)
[2024-09-26] MEDS: NICODERM TRANSDERMAL 14 MG TRANSDERM (08:10)
[2024-09-26] MEDS: LASIX 40 MG PO (08:10)
[2024-09-26] MEDS: PROTONIX 40 MG PO (08:10)
[2024-09-26] MEDS: VITAMIN B1 100 MG PO (08:10)
[2024-09-26] MEDS: CRESTOR 20 MG PO (08:10)
[2024-09-26 08:36] LABS: C-Reactive Protein 58.20 mg/L (0.0-10.00)
--- NOTE | 2024-09-26 08:58 | CON.CAR ---
Addendum entered and electronically signed by Digna Pollack PA-C 09/26/24 10:41:
Reviewed records obtained from [facility] patient was seen in our office as new patient 09/20/2024 and was in rate controlled atypical a flutter at that time. He was supposed to start Xarelto as of that visit, however unclear if he
did. He underwent echocardiogram 09/23/2024 with EF 70%, LA moderately dilated and RA mildly dilated, no wall motion abnormalities, mild MR, moderate TR, PAP 55 mmHg. He was scheduled to have a preoperative stress test, however then presented and
went urgently to the OR.
Addendum entered and electronically signed by Anatoly Thompson MD 09/26/24 09:50:
I saw and examined the patient.
The Channel Layer's note was reviewed and I agree with the note.
Comment:
GEN: No distress, awake, Ox3
HEENT: supple, anicteric, mmm
LUNGS: CTA, no wheezes/rales
CV: Irreg, S1/S2, 1/6 syst LSB, no gallop
ABD: soft, BS+, NT/ND
EXT: R foot wound
NEURO: Gross non-focal
SKIN: No rash
Plan:
69-year-old male with past medical history of tobacco abuse, alcohol use, hypertension, hyperlipidemia and right foot wound presented urgently for right iliofemoral endarterectomy with bovine plasty angioplasty and right fem pop bypass. Patient
reportedly saw [facility] cardiology prior to this admission. He reportedly had an echocardiogram which was unremarkable. Records are unavailable. We are asked to evaluate him for new onset rate controlled atrial flutter.
Patient overall did well with his procedure. We will review his echocardiogram as outpatient.
EKG has a flutter with controlled ventricular response. Chest Vascor is 3. He will require full anticoagulation. Will discuss with vascular surgery requiring timing of initiation of Eliquis.
Check TSH and proBNP. Lungs overall sound clear.
He remains on Lasix 40 mg p.o. daily.
Blood pressure is stable. Continue lisinopril, Norvasc. Will trend heart rates and consider low-dose beta-charo/calcium channel charo therapy.
Continue Crestor. Goal LDL 55.
Discussed smoking cessation.
Continue antibiotics with vancomycin and cefepime for foot wound.
Original Note:
Consultation
Consultation Request
Date/Time Consultation Performed: 09/26/24
Requesting Provider: Teresa RDZ
Performing Provider: Digna Pollack PA-C for Dr. Thompson
Reason for Consultation: aflutter
Medical History
-
Chief Complaint: non healing foot wound
History of Present Illness:
Patient is a 69-year-old male with past medical history of hypertension, hyperlipidemia, COPD with ongoing tobacco use, GERD, daily alcohol use who presented to the [facility] for evaluation of right foot pain. He was being evaluated per vascular as an
outpatient with concern for acute limb ischemia and therefore sent to the hospital for further evaluation. He was admitted and underwent urgent extensive right iliofemoral endarterectomy with bovine patch angioplasty and profundoplasty and right
femoral to shefj-jpn-[id number] popliteal artery bypass 09/25/2024. Cardiology consulted as patient was reportedly undergoing outpatient ischemic evaluation -patient is poor historian, but states he had EKG and echo last week. He denies chest pain,
shortness of breath, palpitations. He is unsure of his yarn examiner however states testing was done in [place]. EKG shows atrial flutter with controlled ventricular response. He was not anticoagulated prior to admission.
PMH:
PAD
HTN
HLD
COPD
GERD
Ongoing tobacco use
Daily ETOH use
Past Medical History
Past Medical History: Other (in HPI)
Social History
Tobacco: Smoker
Alcohol: Daily (3-4 beers)
Living: Alone
Employment: Retired
Family History
Family History: CAD (in mother in 50s, father in 80s)
Allergies / Home Medications
Allergy/AdvReac Type Severity Reaction Status Date / Time
No Known Allergies Allergy Unverified 09/25/24 09:48
�Medication �Instructions �Recorded �Confirmed �Type
amlodipine 10 mg tablet (Norvasc) 10 mg PO HS Blood Pressure 09/25/24 09/25/24 History
aspirin 81 mg tablet,delayed 81 mg PO DAILY Blood Clot 09/25/24 09/25/24 History
release Prevention/Tx
furosemide 20 mg tablet (Lasix) 40 mg PO DAILY Fluid 09/25/24 09/25/24 History
Retention/Swelling
lisinopril 40 mg tablet 40 mg PO DAILY Blood Pressure 09/25/24 09/25/24 History
naproxen 375 mg tablet 375 mg PO DAILYPRN PRN mild pain 09/25/24 09/25/24 History
omeprazole 40 mg capsule,delayed 40 mg PO DAILY Gastrointestinal 09/25/24 09/25/24 History
release Issue
rosuvastatin 10 mg tablet (Crestor) 10 mg PO DAILY High Cholesterol 09/25/24 09/25/24 History
therapeutic multivitamin 1 tab PO DAILY Supplement 09/25/24 09/25/24 History
tiotropium 2.5 mcg-olodaterol 2.5 2 puff inhalation R DAILY 09/25/24 09/25/24 History
mcg/actuation mist for inhalation Lung/Breathing Issues
(Stiolto Respimat)
Review of Systems
-
History Source: Patient
All other systems: Negative unless noted
Physical Exam
Vital Signs
Temp Pulse Resp BP Pulse Ox
97 F 100 20 113/54 96
09/26/24 07:30 09/26/24 08:30 09/26/24 08:30 09/26/24 08:10 09/26/24 08:43
Lab Results
09/26/24 04:43
09/26/24 04:43
Physical Exam
General: No Apparent Distress, Comfortable and Other (on supp O2. sitting in chair)
HEENT: Normocephalic, Anicteric and Moist Mucous Membranes
Respiratory: Wheezes and Non Labored Respirations
Cardiac: S1/S2 and Irregular Rhythm
GI: Soft, Non Tender, Non Distended and Normal Bowel Sounds
Musculoskeletal: No Clubbing, No Cyanosis and Edema (trace- 1+ edema of B/L LE)
Skin: Warm and Dry
Neuro: AO x 3
Impression / Plan
-
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
Assessment:
Presentation with RLE pain, concern for limb ischemia
PAD s/p urgent extensive right iliofemoral endarterectomy with bovine patch angioplasty and profundoplasty and right femoral to [id number] popliteal artery bypass 09/25/2024
Atrial flutter, new diagnosis of unclear duration, asymptomatic
HTN
HLD
COPD
GERD
Ongoing tobacco use
Daily ETOH use
Plan:
- Patient presented to [facility] with right lower extremity pain and concern for limb ischemia in the setting of a nonhealing wound and underwent urgent extensive right iliofemoral endarterectomy with bovine patch angioplasty and profundoplasty and
right femoral to ynyfx-ttq-vovw popliteal artery bypass by vascular surgery 09/25/2024.
- Continue postoperative care, pain mgmt, PT/OT, wound care
- Cardiology consulted postop as patient noted to have atrial flutter by EKG 09/25, rate controlled which is new diagnosis of unclear duration. Patient is asymptomatic. He remains in rate controlled A-fib versus a flutter on review of telemetry
overnight
- Heart rates relatively well-controlled without AV lucius blocking agent. If needed would consider transitioning Norvasc to Cardizem for rate control (as long as EF preserved by echo). Would attempt to avoid beta-charo given COPD and current
wheezing
- Requested records from [facility], awaiting for review. patient reports he had ekg and echo last week in office. if not, will check echo here
- discussed risk of CVA associated with atrial arrhythmias. [id number] score of 3 for age, HTN, vascular disease. discussed OAC with patient and he is agreeable to start. will plan to initiate OAC when ok from surgical standpoint. will have CM
assess cost to patient of xarelto (hopefully once daily dosing will encourage compliance). would continue asa in addition as discussed with vascular on 09/26.
- check TSH
- check proBNP. on po lasix 40mg daily. CXR 09/25 without clear evidence of acute CHF. also with COPD. wean supp O2 as able.
- encouraged smoking cessation
Data Reviewed
-
EKG: Tracing Personally Visualized and interpreted
Radiology: Report Reviewed by me
Labs: Labs Reviewed by me
Old Records: Requested and Reviewed
--- NOTE | 2024-09-26 09:00 | PHA.VAN.FU ---
Addendum entered and electronically signed by Callie Gunn [facility] 09/26/24 09:19:
Agree with Assessment and plan
Original Note:
Vancomycin Assessment / Plan
- Assessment
Renal Function: Stable
WBC's are: Trending Up
In the past 24 hrs, patient has been: Afebrile
- Dosing Plan
Continue: 1000mg q12h
- Monitoring Plan
No level(s) ordered at this time: consider within next few days
- Follow Up
Pharmacy will continue to follow.
Vancomycin Follow UP
- -
Patient Age: 69
Patient Sex: Male
Vancomycin Day #: 2
Indication: Skin And Soft Tissue
Requesting Provider: Dr. Ivory (resident)
Pertinent Antimicrobial Allergies:
NKDA
Height / Weight:
Height 5 ft 9 in
Actual Weight 76.3 kg
Pertinent Past Medical History: PAD
- Vital Signs / Lab Results
Temp Pulse Resp BP Pulse Ox
97 F 100 20 113/54 96
09/26/24 07:30 09/26/24 08:30 09/26/24 08:30 09/26/24 08:10 09/26/24 08:43
Lab Results - Hematology
09/25/24 09/25/24 09/26/24
10:15 19:27 04:43
WBC 13.9 H 16.2 H 16.3 H
Lab Results - Chemistry
09/25/24 09/25/24 09/26/24
10:15 19:27 04:43
BUN 5 L 5 L 9
Creatinine 0.7 0.6 L 0.7
Estimated Creat Clear 115 98
Albumin 3.7
Lab Results - Urine
09/25/24
23:12
Urine Nitrite Negative
Ur Leukocyte Esterase Negative
Urine WBC 3-5
Ur Squamous Epith Cells 0-2
Urine Bacteria Few A
--- NOTE | 2024-09-26 09:50 | WOUNDNOTE ---
R TOES (WOUNDS BETWEEN 3-4TH AND 4TH-5TH TOES)
--- NOTE | 2024-09-26 09:51 | WOUNDNOTE ---
R 5TH TOE
--- NOTE | 2024-09-26 09:51 | WOUNDNOTE ---
R 3-4TH TOE WEBSPACE
--- NOTE | 2024-09-26 09:52 | WOUNDNOTE ---
R GREAT TOE (SIDE OF)
--- NOTE | 2024-09-26 09:53 | WOUNDNOTE ---
[facility] RN note: Patient admitted with limb threatening chronic ischemia.
See H&P for complete history.
PMH: COPD, HTN, ETOH use, PAD, smoker.
Wound Location and type/assessment: Patient admitted with: dull red coccyx. R 3-4th and 4-5th toe webspace ulcers extending to plantar toe base necrotic odorous ulcers r/t PAD. Pedal pulses heard via portable Doppler.
Appetite: on low cholesterol diet.
Pressure redistribution devices in place: Musicnotes air bed. Air chair cushion. Patient stood with 1 assist during sacral/buttocks skin assessment.
Plan: RIOS Crocker was in to assist with patient standing during sacral skin assessment. Sacral shaped silicone border foam applied. Dressing applied to R toe ulcers (swabbed with Betadine, 1 ply gauze between 3-4, 4-5th toes). Instructed patient
pressure injury prevention measures including heel elevation while in bed. Protective foam applied to heels. Podiatry on consult who will manage toe wounds. Will follow peripherally as needed.
Care plan to be updated and will follow as needed.
Note to case management of requested for discharge: VN if goes home.
Patient to follow up with central office repairer supervisor and vascular upon discharge.
[2024-09-26] MEDS: STERILE WATER FOR INJECTION 10 ML IV ×3 (09:58→23:05)
[2024-09-26] MEDS: MAXIPIME 1000 MG IV ×3 (09:59→22:59)
[2024-09-26] MEDS: DILAUDID 0.5 MG IV ×3 (10:51→21:33)
[2024-09-26] MEDS: CARDIZEM CD 180 MG PO (10:52)
--- NOTE | 2024-09-26 10:52 | CM ---
Met with patient at bedside; initial assessment completed; signed IMM form on the chart from 09/25/24
Case Management Consult completed: Per [facility], Out of pocket cost for xarelto 20 mg 30 day supply, every PM is $12.15
Local Pharmacy verified: [facility] [address] [facility]
Patient reported he lives alone; 2nd floor apartment @ [facility]; no elevator access in the building; 12 steps to 2nd floor; railings both sides; bathroom has tub w/ shower; grab bar; has a shower chair
PLOF: reported he was independent w/ personal care; no device w/ ambulation; prepares his own meals; has assistance w/ some ADLs; has support from family; does not drive; retired
No history of SNF or Home Health utilization
[facility] counseling offered; patient declined; reported he sees a counselor in an outpatient setting PRN
Transport: antoniosin Domonique, will provide transport home
Plan Discharge to home when medically stable; case management will monitor for needs; and coordinate if identified
--- NOTE | 2024-09-26 11:08 | W.PN.UPDATE ---
Update Note
Progress Note Update
69 yo M presents with right foot wound infection
- tentative plan for OR today right 4th/5th toe amputation
-- will discuss with vascular
- patient to remain NPO
- МАРИНА RLE
--- NOTE | 2024-09-26 11:19 | PTCARENOTE ---
Vascular team to bedside this AM, further orders received. IVF d/c'd. L rad art line removed; pressure held until bleeding ceased and clean dressing applied. Johnson catheter d/c'd; pt dtv @ 1400. Pt. assisted to stand/pivot OOB to chair x1 @
0800; tolerated activity and remains tolerating chair position. Podiatry to bedside this AM; R toe(s) redressed and tentative plan for OR today; pt. NPO status ex meds/ice chips. Pain meds admin prior to podiatry redressing R toe wounds- see APR.
Call montes remains w in reach.
--- NOTE | 2024-09-26 16:21 | PTCARENOTE ---
Addendum entered by Lizzette Wills RN 09/26/24 18:07:
Received pt. direct back from OR @ 1705 s/p open R foot 4/5th toe amp. VSS. Dressing c/d/i; covered w compression. D/t new post op dressing unable to obtain R DP pulses; + R post tib and popliteal pulses by doppler. C/O severe pain- medicated w
prn- see MAR. Family @ bedside, updated. Call simon casarez in reach.
Original Note:
Report given to [employer] and pt. transported via bed to OR @ 1530; awaiting report back from OR.
--- NOTE | 2024-09-26 16:57 | W.PN.UPDATE ---
Update Note
Progress Note Update
69M s/p open R / toe amputations
- tentative return to OR Monday for closure
- NWB RLE
- continue abx
- cultures x2 sent to micro
- Dressings C/D/I
[2024-09-26] MEDS: XARELTO 20 MG PO (18:11)
--- NOTE | 2024-09-26 21:00 | PTCARENOTE ---
Neurovascular checks unchanged from previous shift.
--- NOTE | 2024-09-26 22:00 | PTCARENOTE ---
Pt c/o 10 out of 10 pain at rt foot surgical site. PRN dilaudid administered by this RN.
[2024-09-27] VITALS (18 sets, daily range): BP systolic 90–120; BP diastolic 61–98; PULSE 76–77; O2SAT 93; BMI 25.0
--- NOTE | 2024-09-27 | PTCARENOTE ---
Upon reassessment pt is resting comfortably.
[2024-09-27] MEDS: DILAUDID 0.5 MG IV ×4 (00:23→11:47)
[2024-09-27] MEDS: MAXIPIME 1000 MG IV ×4 (05:16→22:17)
[2024-09-27] MEDS: STERILE WATER FOR INJECTION 10 ML IV ×4 (05:16→22:17)
[2024-09-27 05:22] LABS: Hematocrit 39.4 % (39.0-52.0); Hemoglobin 13.2 g/dL (13.0-18.0); Mean Corp Hgb Conc. 33.5 g/dL (33.0-37.0); Mean Corpuscular Volume 101.5 fL (80.0-94.0); Platelet Count 378 10^3/uL (130-400); Red Cell Dist. Width 12.7 % (11.5-14.5)
[2024-09-27] MEDS: VANCOCIN 200 IV ×2 (05:47→18:20)
[2024-09-27 05:48] LABS: Blood Urea Nitrogen 13 mg/dl (9-20); Calcium 8.9 mg/dl (8.4-10.2); Carbon Dioxide 30 mmol/L (22-30); Chloride 97 mmol/L (98-107); Estimated Creatinine Clearance 86 ml/min; Glucose 99 mg/dl (70-99); Potassium 4.3 mmol/L (3.5-5.1); Sodium 129 mmol/L (135-145); eGFR > 60.00
[2024-09-27] MEDS: ROXICODONE 5 MG PO ×2 (07:01→10:59)
--- NOTE | 2024-09-27 07:10 | W.PN.HOSP.TC ---
Today's Communication/Plan
-
- f/u podiatry and vascular recs
- per cardiology, continue diltiazem, xarelto, furosemide, aspirin, lisinopril
- f/u wound culture; continue vancomycin and cefepime for now
Assessment / Plan
Assessment / Plan
In summary, this is a 69 yo M
# Purulent cellulitis s/p 4th & 5th toe amputation
# Peripheral artery disease s/p right iliofemoral endarterectomy with bovine plasty angioplasty and right fem pop bypass
# Limb threatening chronic ischemia
- 4th/5th toe wound present with purulence s/p amputation with podiatry on 09/26
- podiatry to close the wound on Monday, 09/30
- MRSA screen negative
- IV vancomycin and cefepime
- monitor CBC (WBC decreasing)
- monitor VS (Afebrile)
- continue rosuvastatin 20mg (LDL at goal) and aspirin
- incentive spirometry
- f/u podiatry recs
- f/u vascular recs
# atrial flutter with controlled ventricular response
- new onset, occurred in PACU; was also supposed to follow-up with cardiology for cardiac ischemic workup
- xarelto resumed 09/26 evening; will coordinate with podiatry regarding when to stop given back to OR on Monday for amputation closure
- TSH within normal limits; NTproBNP 900s (unsure baseline)
- per cardiology recs: continue diltiazem
- per cardiology, continue lisinopril and lasix
# Hyponatremia
- could be chronic given prior admission Na+ 129
- per cardiology, okay to continue lasix
# Tobacco/EtoH use
- spiriva daily and duonebs prn for probable COPD
- nicotine patches
- supervisor counseling and guidance on smoking cessation
- monitor for EtOH symptoms
- continue thiamine, folic acid
- continue spiriva
# Chronic issues per below
# HTN - continue amlodipine 10mg daily, lisinopril 40mg daily, furosemide 20mg daily
# COPD - continue qtwxypstbo-deuisbk-bbrujrfyqf inhalers daily
# GERD - continue pantoprazole 40mg daily
DVTppx: enoxaparin
Code: full
Anticipated Discharge: > 48 hours
Subjective/Interval History
-
Date of Service: September 27, 2024
feels okay this morning, had 4th/5th toe amputation 09/26 with podiatry
Objective Data
-
Labs:
Laboratory Results
09/27/24
05:07
WBC 13.8 H
Hgb 13.2
Hct 39.4
Plt Count 378
Sodium 129 L
Potassium 4.3
Chloride 97 L
Carbon Dioxide 30
BUN 13
Creatinine 0.8
Glucose 99
Calcium 8.9
WBC 13.8 from 16.3
Na+ 129 from 130
Cr 0.8 from 0.7
TSH 1.20
NT-proBNP 922
wound cultures pending
MRSA screen negative
Vital Signs:
Vital Signs
Temp Pulse Resp BP Pulse Ox
97.5 F 69 11 109/73 95
09/26/24 23:03 09/27/24 06:00 09/27/24 06:00 09/27/24 06:00 09/27/24 06:00
afebrile
I&O
09/26/24 09/27/24 09/28/24
06:59 06:59 06:59
Intake Total 1540 / 1620 140 / 140
Output Total 1658 / 1708 560 / 560
Balance -118 / -88 -420 / -420
Review of Systems
-
History Source: Patient
Constitutional: Reports No Symptoms
EENT: Reports No Symptoms Reported
Respiratory: Reports Cough
Cardiac: Reports No Symptoms
Abdomen/GI: Reports No Symptoms
Genitourinary: Reports No Symptoms
Musculoskeletal: Reports No Symptoms
Skin: Reports Sores (open wound on foot R)
Neuro: Reports No Symptoms
Physical Exam
-
General: No Apparent Distress
HEENT: Normocephalic
Respiratory: Clear to Auscultation (clear on my exam this AM)
Cardiac: Regular Rhythm and Other (no murmurs on my exam)
GI: Soft and Nontender
Musculoskeletal: Other (R foot in bandage s/p amputation of 4th/5th toe; able to move feet and toes )
Skin: Other (bandage over R foot; sensation and movement grossly intact)
Neuro: Awake and Alert
Psych: Calm
--- NOTE | 2024-09-27 07:16 | W.PN.INTV ---
Today's Communication / Plan
Recommendations
Continue with cefepime, vancomycin
Defer antibiotic therapy to primary service
Back to OR on Monday for closure of right amputation wound
Remains on aspirin
Resume outpatient inhaler therapy at time of discharge
Tobacco cessation reviewed
Reviewed pulmonary nodule on prior imaging. He will require follow-up CT imaging at time of discharge
This will be deferred to his primary physician
Our information was left in chart for follow-up as well
Transferred out of ICU. We will sign off. Please call with questions
Assessment
-
69-year-old male with history of hypertension, peripheral vascular disease, with poorly healing right fifth toe, with progressive claudication symptoms as an outpatient. He is status post right femoral endarterectomy with bovine patch angioplasty
and right femoral to above-knee popliteal bypass 09/25/2024
s/p RFEA, right femoral to above-knee popliteal bypass
09/25/2024
Poorly healing right fifth toe ulcer at risk for amputation
s/p 4th and 5th toe amputation 09/26
Claudication symptoms progressive as outpatient
Right upper lobe nodule 8.[address] chest 06/07/2023
Chronic right lung volume loss likely from multiple traumas in the
Mediastinal calcification
Right middle lobe rounded atelectasis, per CT chest 06/26/2023
Conditions present prior to admission
Hypertension/hyperlipidemia
History of peripheral neuropathy
History of trauma, TBI
Complicated by multiple pneumothoraces
Pulmonary embolism, IVC filter
GERD
Suspected COPD
Daily alcohol use, 4 beers
[id number] history of smoking, ongoing
Plan/recommendations
At this time, patient appears to be comfortable. Primary complaint is right leg discomfort.
Otherwise has no other complaints
Right groin intact with dressing, distal pulses palpable, feet warm
Right lower extremity bandage in place
Moving forward
Continue with management per vascular surgery and podiatry
Remains on empiric antibiotics, vancomycin/cefepime. Defer to primary service need for ID evaluation
Wound care consult, podiatry following
Patient denies being on any antibiotics over the last few months although it appears he is a poor historian, poor memory
Tobacco cessation discussed. Nicotine replacement
Discussed importance of tobacco cessation given comorbidities
Okay to continue Spiriva and Striverdi for now, patient on outpatient Stiolto
With regards to prior CT imaging, he is overdue for follow-up CT imaging, lung cancer screening. He is considered high risk for lung cancer
He will require follow-up for right upper lobe nodule. Would recommend CT chest as outpatient post discharge
I reviewed with patient high risk for lung cancer and possibly of his nodule being a lung cancer. Also reviewed the risk of not following up with imaging, diagnosis and treatment and increased risk for increased morbidity, mortality () from
lung cancer
DVT prophylaxis: Enoxaparin
GI prophylaxis: Remains on Protonix
For transfer out of ICU. We will sign off. Please call with questions
Subjective Dataa
Subjective Data
Date of Service:
Date of Service: September 27, 2024
Subjective:
Patient complaining of right leg pain. Otherwise denies chest pain, shortness of breath, nausea, abdominal pain. He has yet to have a bowel movement, not passing gas. Underwent right 5th and 4th toe amputation yesterday
Objective Data
Data Reviewed
Vital Signs / I&O / Oxygen:
Vital Signs
Temp Pulse Resp BP Pulse Ox
97.5 F 69 11 109/73 95
09/26/24 23:03 09/27/24 06:00 09/27/24 06:00 09/27/24 06:00 09/27/24 06:00
Intake and Output
09/26/24 09/27/24 09/28/24
06:59 06:59 06:59
Intake Total 1540 / 1620 140 / 140
Output Total 1658 / 1708 560 / 560 330 / 330
Balance -118 / -88 -420 / -420 -330 / -330
SaO2 95
Nasal Cannula flow liters per 4
minute
Physical Exam
General: Comfortable
HEENT: Normocephalic and Anicteric
Cardiovascular: S1-S2, Regular Rhythm, Murmur (n), Rub (n), Peripheral Edema (Right foot bandage in place) and Other (Groin intact)
Respiratory: Wheeze (n), Crackles (n), Rhonchi (few) and Non-Labored Respirations
GI: Soft, Distended and Non Tender
Neurology: Awake, Alert and No Motor Deficits (Moves all extremities)
Skin: Cyanosis (n), Jaundice (n) and Other (Multiple tattoos)
Labs/Micro/Reports
Lab Data
09/27/24 05:07
09/27/24 05:07
Microbiology
09/26/24 16:42 Toe Gram Stain - Preliminary
09/26/24 14:47 Foot - Right Gram Stain - Preliminary
[2024-09-27] MEDS: SPIRIVA RESPIMAT 2.5 MCG 2 PUFF INH (07:30)
[2024-09-27] MEDS: STRIVERDI RESPIMAT 2 PUFF INH (07:31)
--- NOTE | 2024-09-27 08:23 | W.PN.VS ---
Addendum entered and electronically signed by Mario Johnson III, MD 09/27/24 10:48:
This patient was seen and examined in collaboration with KENDELL Griffin. I agree with the history and physical exam as well as the assessment and plan.
Signed:
Mario Johnson III, MD
Vascular Surgery
[facility]
Original Note:
Today's Communication / Plan
-
Seen and assessed with Dr. Johnson
Assessment/Plan
-
Assessment: 69-year-old male POD #2 Extensive right iliofemoral endarterectomy (distal external iliac artery, common femoral artery, profunda femoris artery, origin of SFA) with bovine pericardial patch angioplasty and profundoplasty. Right femoral
to lkxph-mgb-knxv popliteal artery bypass with 8 mm ringed [place] Propaten graft.
Plan:
Physical therapy as tolerated
Appreciate cardiology
Wound care per podiatry
Defer to podiatry for weightbearing status/shoe
Incentive spirometry
Encourage smoking cessation education
Transferred to telemetry
Subjective Data
-
Date of Service: September 27, 2024
Patient seen at bedside this a.m. with Dr. Johnson. Patient offers no complaints at this time. No events overnight. Pulse exam unchanged.
Objective Data
-
Vital Signs
Temp Pulse Resp BP Pulse Ox
97.3 F 93 19 109/73 96
09/27/24 07:17 09/27/24 07:32 09/27/24 07:32 09/27/24 06:00 09/27/24 07:32
Intake and Output
09/26/24 09/27/24 09/28/24
06:59 06:59 06:59
Intake Total 1540 / 1620 140 / 140
Output Total 1658 / 1708 560 / 560 330 / 330
Balance -118 / -88 -420 / -420 -330 / -330
Intake:
Oral fluids 300 / 300 60 / 60
IV fluids (Total) 940 / 1020 80 / 80
NSS 300 / 300
Nss 1,000 ml @ 80 mls/hr IV . 640 / 720 80 / 80
[id number] HARJIT Rx#:[id number]
IV piggybacks 300 / 300
Output:
Drain Output (Total) 0 / 0
Right Upper Leg 0 / 0
Urine, Johnson 1208 / 1258 75 / 75
Urine, Voided 450 / 450 485 / 485 330 / 330
Lab Results
09/27/24 05:07
09/27/24 05:07
Calcium 8.9 mg/dl (8.4-10.2) 09/27/24 05:07
Phosphorus Cancelled 09/25/24 14:18
Magnesium 1.7 mg/dl (1.6-2.3) 09/25/24 19:27
Total Bilirubin 0.7 mg/dl (0.2-1.3) 09/25/24 10:15
AST 23 U/L (17-59) 09/25/24 10:15
ALT 11 U/L (0-50) 09/25/24 10:15
Alkaline Phosphatase 84 U/L (38-126) 09/25/24 10:15
Total Protein 6.5 g/dl (6.3-8.2) 09/25/24 10:15
Albumin 3.7 g/dl (3.5-5.0) 09/25/24 10:15
Physical Exam
-
No apparent distress, resting bed comfortably
No tachycardia
No dyspnea on room air
ABD rotund, nontender, nondistended
Right lower extremity surgical stefanie dressing clean, dry, and intact, right PT and AT signal, right wrapped by podiatry this morning, dressing dry
--- NOTE | 2024-09-27 08:33 | PHA.VAN.FU ---
Addendum entered and electronically signed by Callie Gunn [facility] 09/27/24 08:48:
Agree with assessment and plan
Original Note:
Vancomycin Assessment / Plan
- Assessment
Renal Function: SCR Increasing
WBC's are: Trending Down
In the past 24 hrs, patient has been: Afebrile
Concomitant Antimicrobials: cefepime
- Dosing Plan
Continue: 1000mg q12h
- Monitoring Plan
No level(s) ordered at this time: consider within next few days
- Follow Up
Pharmacy will continue to follow.
Vancomycin Follow UP
- -
Patient Age: 69
Patient Sex: Male
Vancomycin Day #: 3
Indication: Skin And Soft Tissue
Requesting Provider: Dr. Ivory (resident)
Pertinent Antimicrobial Allergies:
NKDA
Height / Weight:
Height 5 ft 9 in
Actual Weight 76.6 kg
Pertinent Past Medical History: PAD
- Vital Signs / Lab Results
Temp Pulse Resp BP Pulse Ox
97.3 F 93 19 109/73 96
09/27/24 07:17 09/27/24 07:32 09/27/24 07:32 09/27/24 06:00 09/27/24 07:32
Lab Results - Hematology
09/25/24 09/25/24 09/26/24
10:15 19:27 04:43
WBC 13.9 H 16.2 H 16.3 H
09/27/24
05:07
WBC 13.8 H
Lab Results - Chemistry
09/25/24 09/25/24 09/26/24
10:15 19:27 04:43
BUN 5 L 5 L 9
Creatinine 0.7 0.6 L 0.7
Estimated Creat Clear 115 98
Albumin 3.7
09/27/24
05:07
BUN 13
Creatinine 0.8
Estimated Creat Clear 86
Albumin
Microbiology Results
09/25/24 23:10 MRSA Screen - Final
Nose No Methicillin Resistant Staphylococcus aureus isolated.
09/26/24 16:42 Gram Stain - Preliminary
Toe
09/26/24 14:47 Gram Stain - Preliminary
Foot - Right
--- NOTE | 2024-09-27 08:41 | W.PN.CARDCBS ---
Today's Communication / Plan
-
Remains in rate controlled atrial flutter. Continue diltiazem. Recommend start Xarelto when okay with podiatry no more procedures scheduled.
Blood pressure overall stable. Continue lisinopril and diltiazem.
Continue antibiotics and medical therapy for PAD. Continue rosuvastatin and aspirin.
Continues to have hyponatremia. Okay to continue Lasix. Would free water restrict.
Impression / Plan
-
Primary Practical Nurse: [facility] ([facility])
Assessment:
Presentation with RLE pain, concern for limb ischemia
PAD s/p urgent extensive right iliofemoral endarterectomy with bovine patch angioplasty and profundoplasty and right femoral to wemwg-mtc-agnz popliteal artery bypass 09/25/2024
Atrial flutter, new diagnosis of unclear duration, asymptomatic
HTN
HLD
COPD
GERD
Ongoing tobacco use
Daily ETOH use
Echo 09/23/24: EF 70%, dilated atrium, mild MR, moderate TR, PA pressure 55
Plan:
-Remains in rate controlled atrial flutter. Continue diltiazem 180 mg daily. Recommend start Xarelto when okay with podiatry. Not sure if they plan further procedures.
-Echo was reviewed from [facility]. Ejection fraction is preserved with moderate TR and elevated PA pressures.
-proBNP is 900 and acceptable. Continue Lasix 40 mg daily. No clear signs of volume overload.
-Continue aggressive medical therapy for peripheral vascular disease. Continue rosuvastatin, and aspirin.
-Continue antibiotics for leg wounds and debridements
-Blood pressure is overall stable
- encouraged smoking cessation
Progress Note - Practical Nurse
Subjective
Date of Service: September 27, 2024
Denies chest pains and shortness of breath. Remains in rate controlled atrial fibrillation. Gets rare palpitations.
Objective
Labs:
09/27/24 05:07
09/27/24 05:07
Labs
Hgb 13.2 g/dL (13.0-18.0) 09/27/24 05:07
Hct 39.4 % (39.0-52.0) 09/27/24 05:07
Plt Count 378 10^3/uL (130-400) 09/27/24 05:07
PT 14.7 Sec (11.4-14.6) H 09/26/24 04:43
INR 1.10 09/26/24 04:43
APTT 38.9 Sec (23.4-35.0) H 09/26/24 04:43
Sodium 129 mmol/L (135-145) L 09/27/24 05:07
Potassium 4.3 mmol/L (3.5-5.1) 09/27/24 05:07
BUN 13 mg/dl (9-20) 09/27/24 05:07
Creatinine 0.8 mg/dL (0.7-1.3) 09/27/24 05:07
Glucose 99 mg/dl (70-99) 09/27/24 05:07
Vital Signs and I&O:
Vital Signs
Temp Pulse Resp BP Pulse Ox
97.3 F 93 19 109/73 96
09/27/24 07:17 09/27/24 07:32 09/27/24 07:32 09/27/24 06:00 09/27/24 07:32
Vital Signs
Temp Pulse Resp BP Pulse Ox
97.3 F 93 19 109/73 96
09/27/24 07:17 09/27/24 07:32 09/27/24 07:32 09/27/24 06:00 09/27/24 07:32
Intake & Output
09/25/24 09/26/24 09/27/24 09/28/24
06:59 06:59 06:59 06:59
Intake Total 1540 / 1620 140 / 140
Output Total 1658 / 1708 560 / 560 330 / 330
Balance -118 / -88 -420 / -420 -330 / -330
Physical Exam
Physical Exam
GEN: No distress, awake, Ox3
HEENT: supple, anicteric, mmm
LUNGS: CTA, no wheezes/rales
CV: Irreg, S1/S2, 1/6 syst LSB, no gallop
ABD: soft, BS+, NT/ND
EXT: No edema
NEURO: Gross non-focal
SKIN: No rash
[2024-09-27] MEDS: CARDIZEM CD 180 MG PO (08:47)
[2024-09-27] MEDS: NICODERM TRANSDERMAL 14 MG TRANSDERM (08:47)
[2024-09-27] MEDS: ZESTRIL 40 MG PO (08:47)
[2024-09-27] MEDS: PROTONIX 40 MG PO (08:47)
[2024-09-27] MEDS: VITAMIN B1 100 MG PO (08:47)
[2024-09-27] MEDS: ASPIR LOW (ENTERIC COATED) 81 MG PO (08:47)
[2024-09-27] MEDS: LASIX 40 MG PO (08:48)
[2024-09-27] MEDS: FOLVITE 1 MG PO (08:48)
[2024-09-27] MEDS: CRESTOR 20 MG PO (08:48)
--- NOTE | 2024-09-27 09:06 | PTCARENOTE ---
report received, assessments per work list. podiatry at bedside, right foot dressing changed by surgeon. see PRN MAR medication administration. vascular team in, patient orders received for transfer to tele. call montes in reach
--- NOTE | 2024-09-27 11:30 | W.PN.ANS.POP ---
Anesthesia Post Operative
- Anesthesia Post Op Note
Vital Signs Stable-See Nursing Note: Yes
Airway Patent: Yes
Adequate Pain Control: Yes
Change in Mental Status: No
Current Postoperative Nausea & Vomiting: No
Anesthesia Complications: No
General Anesthetic Recall: No
Unplanned Admission: No
Post Op Hydration Adequate: Yes
- -
Pt awake and alert, resting comfortably with no anesthesia realted c/o at time of post op visit.
--- NOTE | 2024-09-27 13:13 | W.PN.UPDATE ---
Update Note
Progress Note Update
69M s/p open R / toe amputations, doing well this AM. Dressings changed betadine dsd
- Return to OR Monday for closure
- WBAT to heel in surgical shoe
- PT/OT
- continue abx
- cultures x2 sent to micro
- Dressings C/D/I
--- NOTE | 2024-09-27 14:15 | PTCARENOTE ---
Received patient from ICU. Patient AAOx3, c/o right leg pain. Right thigh dressings intact with serour sang drainage. SHYLA x2 intact. Patient placed on 4L NC, 96%. Patient with rhonchi, audible wheeze with exertion, harsh moist OPC. Call montes in
reach.
--- NOTE | 2024-09-27 14:54 | CM ---
POD#1-open R 4th and 5th toe amputations. OR 09/30/24 for closure, WBAT with surgical shoe, IV/Cefepime.
Discharge POC: Recommendation for SNF. [employer] list provided.
[2024-09-27] MEDS: ROXICODONE 10 MG PO ×2 (16:10→21:24)
[2024-09-27] MEDS: MAGIC OR MIRACLE MOUTHWASH 30 ML PO (16:11)
[2024-09-27] MEDS: XARELTO 20 MG PO (18:20)
[2024-09-28] VITALS (7 sets, daily range): BP systolic 103–127; BP diastolic 65–78; O2SAT 93
[2024-09-28] MEDS: ROXICODONE 10 MG PO ×4 (02:59→21:55)
[2024-09-28] MEDS: STERILE WATER FOR INJECTION 10 ML IV ×4 (04:27→21:56)
[2024-09-28] MEDS: MAXIPIME 1000 MG IV ×4 (04:28→21:56)
[2024-09-28] MEDS: VANCOCIN 200 IV ×2 (06:03→18:03)
[2024-09-28 06:23] LABS: Hematocrit 36.0 % (39.0-52.0); Hemoglobin 12.1 g/dL (13.0-18.0); Mean Corp Hgb Conc. 33.6 g/dL (33.0-37.0); Mean Corpuscular Volume 101.7 fL (80.0-94.0); Nucleated Red Blood Cells % 0 % (-); Platelet Count 295 10^3/uL (130-400); Red Cell Dist. Width 12.4 % (11.5-14.5)
[2024-09-28 06:35] LABS: Blood Urea Nitrogen 18 mg/dl (9-20); Calcium 9.1 mg/dl (8.4-10.2); Carbon Dioxide 27 mmol/L (22-30); Chloride 98 mmol/L (98-107); Estimated Creatinine Clearance 69 ml/min; Glucose 116 mg/dl (70-99); Potassium 4.4 mmol/L (3.5-5.1); Sodium 128 mmol/L (135-145); eGFR > 60.00
--- NOTE | 2024-09-28 07:13 | W.PN.HOSP.TC ---
Addendum entered and electronically signed by Chadd Mendoza, 09/28/24 16:17:
Discussed with orthopedics, will hold Xarelto for tonight and tomorrow's doses in preparation of OR on Monday
Original Note:
Today's Communication/Plan
-
- follow-up wound culture
- tentatively continue both vancomycin and cefepime for now
- xarelto will need to held before Mon; t/b with podiatry
- f/u vascular, podiatry recs
Assessment / Plan
Assessment / Plan
In summary, this is a 69 yo M
# Purulent cellulitis s/p 4th & 5th toe amputation on 09/26
# Peripheral artery disease s/p right iliofemoral endarterectomy with bovine plasty angioplasty and right fem pop bypass
# Limb threatening chronic ischemia
- 4th/5th toe wound present with purulence s/p amputation with podiatry on 09/26
- podiatry to close the wound on Monday, 09/30
- MRSA screen negative
- continue IV vancomycin and cefepime (needs to renew)
- monitor CBC (WBC 13.5)
- monitor VS (Afebrile)
- continue rosuvastatin 20mg (LDL at goal) and aspirin
- incentive spirometry
- f/u podiatry recs
- f/u vascular recs
# atrial flutter with controlled ventricular response
- new onset, occurred in PACU; was also supposed to follow-up with cardiology for cardiac ischemic workup
- xarelto resumed 09/26 evening; will coordinate with podiatry regarding when to stop given back to OR on Monday for amputation closure
- TSH within normal limits; NTproBNP 900s (unsure baseline)
- per cardiology recs: continue diltiazem
- per cardiology, continue lisinopril and lasix
# Hyponatremia
- could be chronic given prior admission Na+ 129
- urine osmolality 281, urine sodium of 9 suggest hypovolemic hyponatremia?
- reduce lasix or administer fluids, to be discussed on rounds 09/28
- but, per cardiology, okay to continue lasix
# Tobacco/EtoH use
- spiriva daily and duonebs prn for probable COPD
- nicotine patches
- chemical dependency counselor on smoking cessation
- monitor for EtOH symptoms
- continue thiamine, folic acid
- continue spiriva
# Chronic issues per below
# HTN - continue amlodipine 10mg daily, lisinopril 40mg daily, furosemide 20mg daily
# COPD - continue vxqbqfreug-dlwyrdg-phcefiqvej inhalers daily
# GERD - continue pantoprazole 40mg daily
DVTppx: rivaroxaban for now
Code: full
Anticipated Discharge: > 48 hours
Subjective/Interval History
-
Date of Service: September 28, 2024
feels well, pain in right foot (amputation site), denies chest pain, dyspnea
Objective Data
-
Labs:
Laboratory Results
09/28/24
05:58
WBC 13.5 H
Hgb 12.1 L
Hct 36.0 L
Plt Count 295 D
Sodium 128 L
Potassium 4.4
Chloride 98
Carbon Dioxide 27
BUN 18
Creatinine 1.0
Glucose 116 H
Calcium 9.1
WBC 13.5 from 13.8
microbiology:
prelim wound culture
many GNRs
few GPRs
few GPCs
Few WBC
Vital Signs:
Vital Signs
Temp Pulse Resp BP Pulse Ox
98.5 F 85 18 112/71 96
09/28/24 03:14 09/28/24 03:14 09/28/24 03:14 09/28/24 03:14 09/28/24 03:14
afebrile
I&O
09/27/24 09/28/24 09/29/24
06:59 06:59 06:59
Intake Total 140 / 140 1780 / 1780
Output Total 560 / 560 1080 / 1080
Balance -420 / -420 700 / 700
Review of Systems
-
History Source: Patient
Constitutional: Reports No Symptoms
EENT: Reports No Symptoms Reported
Respiratory: Reports Cough
Cardiac: Reports No Symptoms
Abdomen/GI: Reports No Symptoms
Genitourinary: Reports No Symptoms
Musculoskeletal: Reports No Symptoms
Skin: Reports Other (bandage on right foot, where amputation of 4th/5th toes of R foot took place)
Neuro: Reports No Symptoms
Physical Exam
-
General: No Apparent Distress
HEENT: Normocephalic
GI: Soft and Nontender
Musculoskeletal: Other (R foot in bandage s/p amputation of 4th/5th toe; able to move feet and toes )
Skin: Other (bandage over R foot; sensation and movement grossly intact)
Neuro: Awake and Alert
Psych: Calm
[2024-09-28] MEDS: STRIVERDI RESPIMAT 2 PUFF INH (07:42)
[2024-09-28] MEDS: SPIRIVA RESPIMAT 2.5 MCG 2 PUFF INH (07:42)
--- NOTE | 2024-09-28 07:53 | W.PN.CARDCBS ---
Addendum entered and electronically signed by Laci Ruiz DO 09/28/24 08:11:
.
Pt already receiving Xarelto, would continue
Original Note:
Today's Communication / Plan
-
ok to Resume anticoagulation as per vascular.
Start Xarelto tonight.
Remains compensated from cardiac standpoint, please recall if needed.
Impression / Plan
-
Primary Welder Assistant: [facility] ([facility])
Assessment:
Presentation with RLE pain, concern for limb ischemia
PAD s/p urgent extensive right iliofemoral endarterectomy with bovine patch angioplasty and profundoplasty and right femoral to paeky-ffs-tdyy popliteal artery bypass 09/25/2024
Atrial flutter, new diagnosis of unclear duration, asymptomatic
HTN
HLD
COPD
GERD
Ongoing tobacco use
Daily ETOH use
Echo 09/23/24: EF 70%, dilated atrium, mild MR, moderate TR, PA pressure 55
Plan:
-Remains in rate controlled atrial flutter. Continue diltiazem 180 mg daily.
-Discussed with vascular, ok to start Xarelto tonight
-Echo was reviewed from [place]. Ejection fraction is preserved with moderate TR and elevated PA pressures.
-Remains euvolemic, cont oral lasix 40 mg daily.
-Continue aggressive medical therapy for peripheral vascular disease. Continue rosuvastatin, and aspirin.
-Continue antibiotics for leg wounds and debridements
-Blood pressure is overall stable
-Encouraged smoking cessation
will arrange outpt follow up.
Remains compensated from cardiac standpoint, please recall if needed.
Progress Note - Welder Assistant
Subjective
Date of Service: September 28, 2024
Pt seen and examined. No complaints. No chest pain or shortness of breath.
Objective
Labs:
09/28/24 05:58
09/28/24 05:58
Labs
Hgb 12.1 g/dL (13.0-18.0) L 09/28/24 05:58
Hct 36.0 % (39.0-52.0) L 09/28/24 05:58
Plt Count 295 10^3/uL (130-400) D 09/28/24 05:58
PT 14.7 Sec (11.4-14.6) H 09/26/24 04:43
INR 1.10 09/26/24 04:43
APTT 38.9 Sec (23.4-35.0) H 09/26/24 04:43
Sodium 128 mmol/L (135-145) L 09/28/24 05:58
Potassium 4.4 mmol/L (3.5-5.1) 09/28/24 05:58
BUN 18 mg/dl (9-20) 09/28/24 05:58
Creatinine 1.0 mg/dL (0.7-1.3) 09/28/24 05:58
Glucose 116 mg/dl (70-99) H 09/28/24 05:58
Vital Signs and I&O:
Vital Signs
Temp Pulse Resp BP Pulse Ox
98.5 F 85 18 112/71 96
09/28/24 03:14 09/28/24 03:14 09/28/24 03:14 09/28/24 03:14 09/28/24 03:14
Vital Signs
Temp Pulse Resp BP Pulse Ox
98.5 F 85 18 112/71 96
09/28/24 03:14 09/28/24 03:14 09/28/24 03:14 09/28/24 03:14 09/28/24 03:14
Intake & Output
09/26/24 09/27/24 09/28/24 09/29/24
06:59 06:59 06:59 06:59
Intake Total 1540 / 1620 140 / 140 1780 / 1780
Output Total 1658 / 1708 560 / 560 1080 / 1080
Balance -118 / -88 -420 / -420 700 / 700
Physical Exam
Physical Exam
General: No acute distress, AAOX3
Neck: Negative JVD
Heart: Regular, Negative S3 positive S1/S2, Negative S4, No murmur
Lungs: CTA b/l, negative wheezes/rales/rhonchi
Abd: Positive BS, NT/ND, neg rebound/rigidity/guarding
Ext: Right LE dressing c/d/i. Negative cyanosis/clubbing/edema left
Neuro: nonfocal
--- NOTE | 2024-09-28 08:49 | PHA.VAN.FU ---
Vancomycin Assessment / Plan
- Assessment
Renal Function: SCR Decreasing (slight increasing trend)
WBC's are: Stable
In the past 24 hrs, patient has been: Afebrile
Concomitant Antimicrobials: cefepime
- Dosing Plan
Continue: Vanc 1000mg Q12H
- Monitoring Plan
Peak Level: 09/28 21:00
Trough Level: 09/29 05:30
Monitoring Comments: levels to be drawn after 6th maintenance dose
BUN & SCR ordered per protocol
- Follow Up
Pharmacy will continue to follow.
Vancomycin Follow UP
- -
Patient Age: 69
Patient Sex: Male
Vancomycin Day #: 4
Indication: Skin And Soft Tissue
Requesting Provider: Dr. Ivory (resident)
Pertinent Antimicrobial Allergies:
NKDA
Height / Weight:
Height 5 ft 9 in
Actual Weight 76.6 kg
Pertinent Past Medical History: PAD
- Vital Signs / Lab Results
Temp Pulse Resp BP Pulse Ox
98.5 F 79 14 110/65 96
09/28/24 07:45 09/28/24 07:45 09/28/24 07:45 09/28/24 07:45 09/28/24 07:45
Lab Results - Hematology
09/25/24 09/25/24 09/26/24
10:15 19:27 04:43
WBC 13.9 H 16.2 H 16.3 H
09/27/24 09/28/24
05:07 05:58
WBC 13.8 H 13.5 H
Lab Results - Chemistry
09/25/24 09/25/24 09/26/24
10:15 19:27 04:43
BUN 5 L 5 L 9
Creatinine 0.7 0.6 L 0.7
Estimated Creat Clear 115 98
Albumin 3.7
09/27/24 09/28/24
05:07 05:58
BUN 13 18
Creatinine 0.8 1.0
Estimated Creat Clear 86 69
Albumin
Microbiology Results
09/26/24 16:42 Wound Culture - Preliminary
Toe Gram Stain - Preliminary
09/26/24 14:47 Wound Culture - Preliminary
Foot - Right Gram Stain - Preliminary
09/26/24 05:20 Anaerobic Culture - Preliminary
Toe Culture pending. Anaerobic cultures are examined after 3
days incubation. Additional information to follow.
09/25/24 23:10 MRSA Screen - Final
Nose No Methicillin Resistant Staphylococcus aureus isolated.
[2024-09-28] MEDS: PROTONIX 40 MG PO (09:24)
[2024-09-28] MEDS: NICODERM TRANSDERMAL 14 MG TRANSDERM (09:24)
[2024-09-28] MEDS: CARDIZEM CD 180 MG PO (09:25)
[2024-09-28] MEDS: LASIX 40 MG PO (09:25)
[2024-09-28] MEDS: CRESTOR 20 MG PO (09:25)
[2024-09-28] MEDS: ASPIR LOW (ENTERIC COATED) 81 MG PO (09:25)
[2024-09-28] MEDS: VITAMIN B1 100 MG PO (09:26)
[2024-09-28] MEDS: FOLVITE 1 MG PO (09:26)
[2024-09-28] MEDS: ZESTRIL 40 MG PO (09:26)
--- NOTE | 2024-09-28 10:17 | W.PN.VS ---
Today's Communication / Plan
-
start Xarelto
Assessment/Plan
-
Assessment: 69-year-old male POD #3 Extensive right iliofemoral endarterectomy (distal external iliac artery, common femoral artery, profunda femoris artery, origin of SFA) with bovine pericardial patch angioplasty and profundoplasty. Right femoral
to sxzkh-gka-nmci popliteal artery bypass with 8 mm ringed [place] Propaten graft.
Plan:
Physical therapy as tolerated
Appreciate cardiology
Wound care per podiatry
Defer to podiatry for weightbearing status/shoe
Incentive spirometry
Encourage smoking cessation education
okay for xarelto
Subjective Data
-
Date of Service: September 28, 2024
Pt seen and examined at bedside. Resting comfortably in chair. RLE edema. has not ambulated yet
Objective Data
-
Vital Signs
Temp Pulse Resp BP Pulse Ox
98.5 F 79 14 110/65 96
09/28/24 07:45 09/28/24 07:45 09/28/24 07:45 09/28/24 07:45 09/28/24 07:45
Intake and Output
09/27/24 09/28/24 09/29/24
06:59 06:59 06:59
Intake Total 140 / 140 1780 / 1780 480 / 480
Output Total 560 / 560 1079 / 1080 100 / 100
Balance -420 / -420 700 / 700 380 / 380
Intake:
Oral fluids 60 / 60 1260 / 1260 480 / 480
IV fluids (Total) 80 / 80
Nss 1,000 ml @ 80 mls/hr IV . 80 / 80
[id number] HARJIT Rx#:[id number]
IV piggybacks 520 / 520
Output:
Urine, Johnson 75 / 75
Urine, Voided 485 / 485 1080 / 1080 100 / 100
Lab Results
09/28/24 05:58
09/28/24 05:58
Calcium 9.1 mg/dl (8.4-10.2) 09/28/24 05:58
Phosphorus Cancelled 09/25/24 14:18
Magnesium 1.7 mg/dl (1.6-2.3) 09/25/24 19:27
Total Bilirubin 0.7 mg/dl (0.2-1.3) 09/25/24 10:15
AST 23 U/L (17-59) 09/25/24 10:15
ALT 11 U/L (0-50) 09/25/24 10:15
Alkaline Phosphatase 84 U/L (38-126) 09/25/24 10:15
Total Protein 6.5 g/dl (6.3-8.2) 09/25/24 10:15
Albumin 3.7 g/dl (3.5-5.0) 09/25/24 10:15
Physical Exam
-
No apparent distress, resting bed comfortably
No tachycardia
No dyspnea on room air
ABD rotund, nontender, nondistended
Right lower extremity surgical stefanie dressing clean, dry, and intact, right PT and AT signal, right wrapped by podiatry dressing dry
[2024-09-29] VITALS (7 sets, daily range): BP systolic 101–132; BP diastolic 68–74; PULSE 89; O2SAT 93
[2024-09-29] MEDS: MAXIPIME 1000 MG IV ×2 (04:18→10:01)
[2024-09-29] MEDS: STERILE WATER FOR INJECTION 10 ML IV ×2 (04:19→10:01)
[2024-09-29] MEDS: VANCOCIN 200 IV (05:46)
[2024-09-29 05:59] LABS: Hematocrit 36.8 % (39.0-52.0); Hemoglobin 12.5 g/dL (13.0-18.0); Mean Corp Hgb Conc. 34.0 g/dL (33.0-37.0); Mean Corpuscular Volume 100.8 fL (80.0-94.0); Nucleated Red Blood Cells % 0 % (-); Platelet Count 333 10^3/uL (130-400); Red Cell Dist. Width 12.1 % (11.5-14.5)
[2024-09-29 06:11] LABS: Blood Urea Nitrogen 21 mg/dl (9-20); Calcium 9.3 mg/dl (8.4-10.2); Carbon Dioxide 26 mmol/L (22-30); Chloride 97 mmol/L (98-107); Estimated Creatinine Clearance 62 ml/min; Glucose 98 mg/dl (70-99); Potassium 4.7 mmol/L (3.5-5.1); Sodium 127 mmol/L (135-145); eGFR > 60.00
--- NOTE | 2024-09-29 06:42 | PHA.VAN.FU ---
Vancomycin Assessment / Plan
- Assessment
Renal Function: SCR Increasing
WBC's are: Trending Up
In the past 24 hrs, patient has been: Afebrile
Concomitant Antimicrobials: cefepime
- Assessment - Therapeutic Drug Monitoring
Extrapolated Cmax (mcg/mL): 30.4
Peak level was drawn: Appropriately (drawn ~2.6)
Extrapolated Cmin (mcg/mL): 20.9
Trough Drawn: Appropriately
Levels were drawn: At steady state (levels to be drawn after 6th maintenance dose)
Calculated AUC (mcg*h/mL): 609
Calculated ke: 0.0338
Calculated half life (H): 20.5
Calculated Vd (L): 97 (~1.3 L/kg)
Calculated Vanc CL (ml/min): 55
- Dosing Plan
Adjust Regimen to: dosing by level
Patient may require Q24H interval vs developing DAYRON
Patient s/p vascular surgery 09/25
- Follow Up
Pharmacy will continue to follow.
Vancomycin Follow UP
- -
Patient Age: 69
Patient Sex: Male
Vancomycin Day #: 5
Indication: Skin And Soft Tissue
Requesting Provider: Dr. Ivory (resident)
Pertinent Antimicrobial Allergies:
NKDA
Height / Weight:
Height 5 ft 9 in
Actual Weight 76.6 kg
Pertinent Past Medical History: PAD
- Vital Signs / Lab Results
Temp Pulse Resp BP Pulse Ox
98.6 F 84 16 132/72 97
09/29/24 03:00 09/29/24 03:00 09/29/24 03:00 09/29/24 03:00 09/29/24 03:00
Lab Results - Hematology
09/27/24 09/28/24 09/29/24
05:07 05:58 05:40
WBC 13.8 H 13.5 H 17.2 H
Lab Results - Chemistry
09/27/24 09/28/24 09/29/24
05:07 05:58 05:40
BUN 13 18 21 H
Creatinine 0.8 1.0 1.1
Estimated Creat Clear 86 69 62
Microbiology Results
09/26/24 14:47 Wound Culture - Preliminary
Foot - Right Gram negative bacilli
Enterococcus species
Streptococcus species
Gram Stain - Preliminary
09/26/24 05:20 Anaerobic Culture - Preliminary
Toe Culture pending. Anaerobic cultures are examined after 3
days incubation. Additional information to follow.
09/26/24 16:42 Wound Culture - Preliminary
Toe Gram negative bacilli
Enterococcus species
Gram Stain - Preliminary
09/25/24 23:10 MRSA Screen - Final
Nose No Methicillin Resistant Staphylococcus aureus isolated.
Therapeutic Drug Monitoring
Vancomycin Peak 27.8 ug/ml (18-26) H 09/28/24 21:39
Vancomycin Trough 21.2 ug/ml (5-20) H* 09/29/24 05:40
[2024-09-29] MEDS: ROXICODONE 10 MG PO ×3 (06:44→19:53)
--- NOTE | 2024-09-29 07:18 | W.PN.HOSP.TC ---
Today's Communication/Plan
-
- cefepime to Zosyn
- vancomycin discontinued
- npo at midnight
- lasix 20mg IV once, f/u PM BMP
- echo ordered tomorrow, 09/30
- OR with podiatry tomorrow, 09/30
Assessment / Plan
Assessment / Plan
In summary, this is a 69 yo M
# Purulent cellulitis s/p 4th & 5th toe amputation on 09/26
# Peripheral artery disease s/p right iliofemoral endarterectomy with bovine plasty angioplasty and right fem pop bypass
# Limb threatening chronic ischemia
- 4th/5th toe wound present with purulence s/p amputation with podiatry on 09/26
- podiatry to close the wound on Monday, 09/30
- MRSA screen negative
- vancomycin d/c'ed due to elevated trough; creatinine reassuring 1.1
- switch cefepime to pip/tazo for empiric coverage of enterococcus (sensitivities pending; other bacteria are well covered by zosyn)
- 09/29/2024 is day #1 of zosyn; total duration of abx is day 4 (started on 09/26)
- monitor CBC (WBC is now 17.2)
- monitor VS (Afebrile)
- continue rosuvastatin 20mg (LDL at goal) and aspirin
- incentive spirometry
- f/u podiatry recs
- f/u vascular recs
# atrial flutter with controlled ventricular response
- new onset, occurred in PACU; was also supposed to follow-up with cardiology for cardiac ischemic workup
- xarelto resumed 09/26 evening; will coordinate with podiatry regarding when to stop given back to OR on Monday for amputation closure
- TSH within normal limits; NTproBNP 900s (unsure baseline)
- per cardiology recs: continue diltiazem
- per cardiology, continue lisinopril and lasix
- concern for volume status up --> lasix 20mg IV once today
- f/u PM BMP
- echo ordered
# Hyponatremia
- could be chronic; however, downtrending this admission, now 127
- 09/27: serum Na+ = 129, serum Osm 270 ; urine Na+ = 6, urine Osm = 281
- nephrology consulted
# Tobacco/EtoH use
- spiriva daily and duonebs prn for probable COPD
- nicotine patches
- grief counselor on smoking cessation
- monitor for EtOH symptoms
- continue thiamine, folic acid
- continue spiriva
# Chronic issues per below
# HTN - continue amlodipine 10mg daily, lisinopril 40mg daily, furosemide 20mg daily
# COPD - continue cycwxwtbqi-jgpbpfr-znmnpeltvf inhalers daily
# GERD - continue pantoprazole 40mg daily
DVTppx: rivaroxaban held in anticpiation for OR 09/30
Code: full
Diet: regular and then npo at midnight for OR 09/30
Anticipated Discharge: > 48 hours
Subjective/Interval History
-
Date of Service: September 29, 2024
doing well, concern for possible volume up this morning per vascular
denies chest pain or dyspnea
reports pain in toes stable from yesterday
Objective Data
-
Labs:
Laboratory Results
09/29/24
05:40
WBC 17.2 H
Hgb 12.5 L
Hct 36.8 L
Plt Count 333
Sodium 127 L
Potassium 4.7
Chloride 97 L
Carbon Dioxide 26
BUN 21 H
Creatinine 1.1
Glucose 98
Calcium 9.3
Microbiology
wound culture
Wound/abscess/other Cult Preliminary 09/29/24-843
Rare Klebsiella oxytoca
Rare Citrobacter braakii
Rare Presumptive Enterococcus species
Rare Coagulase neg. staphylococcus
Organism 1 Klebsiella oxytoca
Organism 2 Citrobacter braakii
K.OXYTOCA CITROBACTE
M.I.C. RX M.I.C. RX
--------- --- --------- ---
Amoxicillin/Potas. Clavulanate <=8/4 S >16/8 R
Ampicillin >16 R 16 R
Ampicillin/Sulbactam 16/8 I <=4/2 R
Aztreonam <=4 S <=4 S
Cefazolin >16 R >16 R
Cefepime <=2 S <=2 S
Ceftazidime <=1 S <=1 S
Ceftriaxone <=1 S <=1 S
Ertapenem <=0.5 S <=0.5 S
Ciprofloxacin <=0.25 S <=0.25 S
Gentamicin <=2 S <=2 S
Meropenem <=1 S <=1 S
Piperacillin/Tazobactam <=8 S <=8 S
Tetracycline <=4 S <=4 S
Tobramycin <=2 S 4 S
Trimethoprim/Sulfamethoxazole <=2/38 S <=2/38 S
1. Klebsiella oxytoca
M.I.C. RX
--------- ---
Amoxicillin/Potas. Clavulanate <=8/4 S
Ampicillin >16 R
Ampicillin/Sulbactam 16/8 I
Aztreonam <=4 S
Cefazolin >16 R
Cefepime <=2 S
Ceftazidime <=1 S
Ceftriaxone <=1 S
Ertapenem <=0.5 S
Ciprofloxacin <=0.25 S
Gentamicin <=2 S
Meropenem <=1 S
Piperacillin/Tazobactam <=8 S
Tetracycline <=4 S
Tobramycin <=2 S
Trimethoprim/Sulfamethoxazole <=2/38 S
2. Citrobacter braakii
M.I.C. RX
--------- ---
Amoxicillin/Potas. Clavulanate >16/8 R
Ampicillin 16 R
Ampicillin/Sulbactam <=4/2 R
Aztreonam <=4 S
Cefazolin >16 R
Cefepime <=2 S
Ceftazidime <=1 S
Ceftriaxone <=1 S
Ertapenem <=0.5 S
Ciprofloxacin <=0.25 S
Gentamicin <=2 S
Meropenem <=1 S
Piperacillin/Tazobactam <=8 S
Tetracycline <=4 S
Tobramycin 4 S
Trimethoprim/Sulfamethoxazole <=2/38 S
Vital Signs:
Vital Signs
Temp Pulse Resp BP Pulse Ox
98.6 F 84 16 132/72 97
09/29/24 03:00 09/29/24 03:00 09/29/24 03:00 09/29/24 03:00 09/29/24 03:00
I&O
09/28/24 09/29/24 09/30/24
06:59 06:59 06:59
Intake Total 1780 / 1780 960 / 960
Output Total 1080 / 1080 100 / 100 400 / 400
Balance 700 / 700 860 / 860 -400 / -400
Review of Systems
-
History Source: Patient
Constitutional: Reports No Symptoms
EENT: Reports No Symptoms Reported
Respiratory: Reports Cough
Cardiac: Reports No Symptoms
Abdomen/GI: Reports No Symptoms
Genitourinary: Reports No Symptoms
Musculoskeletal: Reports No Symptoms
Skin: Reports Other (bandage on right foot, where amputation of 4th/5th toes of R foot took place)
Neuro: Reports No Symptoms
Physical Exam
-
General: No Apparent Distress
HEENT: Normocephalic
GI: Soft and Nontender
Musculoskeletal: Other (R lower extremity appears sligtly more swollen than prior; R foot in bandage s/p amputation of 4th/5th toe; able to move feet and toes )
Skin: Other (bandage over R foot; sensation and movement grossly intact)
Neuro: Awake and Alert
Psych: Calm
--- NOTE | 2024-09-29 07:32 | PTCARENOTE ---
RX notified of critical labs for Vanco, reported to not give medication and medication was d/c .
--- NOTE | 2024-09-29 08:00 | W.PN.VS ---
Today's Communication / Plan
-
monitor temp and WBC
Assessment/Plan
-
Assessment: 69-year-old male POD #4 Extensive right iliofemoral endarterectomy (distal external iliac artery, common femoral artery, profunda femoris artery, origin of SFA) with bovine pericardial patch angioplasty and profundoplasty. Right femoral
to zukuy-hga-jtqj popliteal artery bypass with 8 mm ringed [place] Propaten graft.
Plan:
Physical therapy as tolerated
Appreciate cardiology
Wound care per podiatry
monitor WBC
Defer to podiatry for weightbearing status/shoe
Incentive spirometry
Encourage smoking cessation education
xarelto
Subjective Data
-
Date of Service: September 29, 2024
Pt seen and examined at bedside. NAEO. WBC trending up but afebrile. Wound stable
Objective Data
-
Vital Signs
Temp Pulse Resp BP Pulse Ox
98.6 F 84 16 132/72 97
09/29/24 03:00 09/29/24 03:00 09/29/24 03:00 09/29/24 03:00 09/29/24 03:00
Intake and Output
09/28/24 09/29/24 09/30/24
06:59 06:59 06:59
Intake Total 1780 / 1780 960 / 960 620 / 620
Output Total 1080 / 1080 100 / 100 400 / 400
Balance 700 / 700 860 / 860 220 / 220
Intake:
Oral fluids 1260 / 1260 960 / 960 400 / 400
IV piggybacks 520 / 520 220 / 220
Output:
Urine, Voided 1080 / 1080 100 / 100 400 / 400
Lab Results
09/29/24 05:40
09/29/24 05:40
Calcium 9.3 mg/dl (8.4-10.2) 09/29/24 05:40
Phosphorus Cancelled 09/25/24 14:18
Magnesium 1.7 mg/dl (1.6-2.3) 09/25/24 19:27
Total Bilirubin 0.7 mg/dl (0.2-1.3) 09/25/24 10:15
AST 23 U/L (17-59) 09/25/24 10:15
ALT 11 U/L (0-50) 09/25/24 10:15
Alkaline Phosphatase 84 U/L (38-126) 09/25/24 10:15
Total Protein 6.5 g/dl (6.3-8.2) 09/25/24 10:15
Albumin 3.7 g/dl (3.5-5.0) 09/25/24 10:15
Physical Exam
-
No apparent distress, resting bed comfortably
No tachycardia
No dyspnea on room air
ABD rotund, nontender, nondistended
Right lower extremity surgical stefanie dressing clean, dry, and intact, right PT and AT signal, right wrapped by podiatry dressing dry
[2024-09-29] MEDS: SPIRIVA RESPIMAT 2.5 MCG 2 PUFF INH (08:03)
[2024-09-29] MEDS: STRIVERDI RESPIMAT 2 PUFF INH (08:03)
[2024-09-29] MEDS: ZESTRIL 40 MG PO (08:19)
[2024-09-29] MEDS: ASPIR LOW (ENTERIC COATED) 81 MG PO (08:19)
[2024-09-29] MEDS: CARDIZEM CD 180 MG PO (08:19)
[2024-09-29] MEDS: CRESTOR 20 MG PO (08:19)
[2024-09-29] MEDS: LASIX 40 MG PO (08:19)
[2024-09-29] MEDS: FOLVITE 1 MG PO (08:19)
[2024-09-29] MEDS: PROTONIX 40 MG PO (08:19)
[2024-09-29] MEDS: NICODERM TRANSDERMAL 14 MG TRANSDERM (08:19)
[2024-09-29] MEDS: VITAMIN B1 100 MG PO (08:19)
--- NOTE | 2024-09-29 10:43 | CM ---
Reviewed the chart notes and spoke with the patient at the bedside. Reviewed area SNFs list patient received from previous CM. Patient agreeable to referrals being sent in surrounding area. Referral sent with [facility] to [facility], [facility], and
[facility]. CM continues to be available to patient/family and is monitoring medical plan for needs at discharge.
Plan: Discharge to SNF/rehab once medically stable, bed secured, and precert obtained.
--- NOTE | 2024-09-29 12:00 | PTCARENOTE ---
Pt noted to have blisters and raw skin around where upper R thigh SHYLA dressing is. Notified vascular and was instructed to remove both SHYLA dressings and place xeroform on open part of skin.
[2024-09-29] MEDS: ZOSYN 50 IV ×2 (12:09→17:56)
[2024-09-29] MEDS: LASIX 20 MG IV (12:10)
--- NOTE | 2024-09-29 15:27 | W.CON.NEPH ---
Consultation
-
Date/Time Consultation Requested: September 29, 2024 at 9 AM
Date/Time Consultation Performed: September 29, 2024 at 2 PM
Requesting Provider: João Ivory
Performing Provider: Dr. Lacy
Reason for Consultation: Hyponatremia
Medical History
-
Chief Complaint: Hyponatremia
History of Present Illness:
69-year-old male presentation with RLE pain, concern for limb ischemia with PAD s/p urgent extensive right iliofemoral endarterectomy with bovine patch angioplasty and profundoplasty and right femoral to fzqft-pob-nxme popliteal artery bypass
09/25/2024
Other medical history includes atrial flutter, new diagnosis of unclear duration, asymptomatic HTN HLD COPD GERDOngoing tobacco use Daily ETOH use
Renal consultation for hyponatremia decreasing since admission down to 127 with a urine sodium of 6 and a serum osmolality of 281
Past Medical History
PAD s/p urgent extensive right iliofemoral endarterectomy with bovine patch angioplasty and profundoplasty and right femoral to qqqho-bwd-csre popliteal artery bypass 09/25/2024
Atrial flutter, new diagnosis of unclear duration, asymptomatic
HTN
HLD
COPD
GERD
Ongoing tobacco use
Daily ETOH use
Social History
Tobacco: Smoker
Alcohol: Daily
Family History
Family History: Not Pertinent
Allergies / Home Medications
Allergy/AdvReac Type Severity Reaction Status Date / Time
No Known Allergies Allergy Unverified 09/25/24 09:48
�Medication �Instructions �Recorded �Confirmed �Type
amlodipine 10 mg tablet (Norvasc) 10 mg PO HS Blood Pressure 09/25/24 09/25/24 History
aspirin 81 mg tablet,delayed 81 mg PO DAILY Blood Clot 09/25/24 09/25/24 History
release Prevention/Tx
furosemide 20 mg tablet (Lasix) 40 mg PO DAILY Fluid 09/25/24 09/25/24 History
Retention/Swelling
lisinopril 40 mg tablet 40 mg PO DAILY Blood Pressure 09/25/24 09/25/24 History
naproxen 375 mg tablet 375 mg PO DAILYPRN PRN mild pain 09/25/24 09/25/24 History
omeprazole 40 mg capsule,delayed 40 mg PO DAILY Gastrointestinal 09/25/24 09/25/24 History
release Issue
rosuvastatin 10 mg tablet (Crestor) 10 mg PO DAILY High Cholesterol 09/25/24 09/25/24 History
therapeutic multivitamin 1 tab PO DAILY Supplement 09/25/24 09/25/24 History
tiotropium 2.5 mcg-olodaterol 2.5 2 puff inhalation R DAILY 09/25/24 09/25/24 History
mcg/actuation mist for inhalation Lung/Breathing Issues
(Stiolto Respimat)
Review of Systems
-
Mild lower extremity pain no nausea or vomiting and no shortness of breath
All other systems: Negative unless noted
Physical Exam
Vital Signs
Vital Signs
Temp Pulse Resp BP Pulse Ox
98.1 F 86 16 111/73 95
09/29/24 12:19 09/29/24 12:19 09/29/24 12:19 09/29/24 12:19 09/29/24 12:45
Lab Results
WBC 17.2 10^3/uL (4.8-10.8) H 09/29/24 05:40
RBC 3.65 10^6/uL (4.70-6.10) L 09/29/24 05:40
Hgb 12.5 g/dL (13.0-18.0) L 09/29/24 05:40
Hct 36.8 % (39.0-52.0) L 09/29/24 05:40
Plt Count 333 10^3/uL (130-400) 09/29/24 05:40
eGFR > 60.00 09/29/24 05:40
Phosphorus Cancelled 09/25/24 14:18
Hpl-C-Llzutlygfzi Pept 1930 pg/ml 09/29/24 05:40
Albumin 3.7 g/dl (3.5-5.0) 09/25/24 10:15
Physical Exam
General no acute distress
HEENT no cephalic atraumatic extraocular muscle intact no scleral icterus no JVD neck supple
lungs clear to auscultation bilateral
heart regular S1-S2 positive
abdomen soft nontender positive bowel sounds
extremities right lower extremity edema status post amputation of the right 2 toes
Neurologically nonfocal alert and oriented x 3
Skin no lesions no abrasions no petechiae
Psych normal affect no bizarre behavior
Data Reviewed
-
Labs: Labs Reviewed by me and Discussed with Patient
Assessment/Plan
-
69-year-old male presentation with RLE pain, concern for limb ischemia with PAD s/p urgent extensive right iliofemoral endarterectomy with bovine patch angioplasty and profundoplasty and right femoral to dqxfm-tqt-rahl popliteal artery bypass
09/25/2024
Other medical history includes atrial flutter, new diagnosis of unclear duration, asymptomatic HTN HLD COPD GERDOngoing tobacco use Daily ETOH use
Renal consultation for hyponatremia decreasing since admission down to 127 with a urine sodium of 6 and a serum osmolality of 281
Impression.
Hyponatremia
PAD status post intervention above
A-flutter
Hypertension
Tobacco use
Moderate alcohol use
Plan.
October 01 urine sodium 6 with a urine osmolality 281 not consistent with excessive ADH
He does have right lower extremity swelling at the surgical site
does not appear that he is drinking excessive fluids but he does have decreased appetite which he says is improving
I discussed with the patient to increase his protein
Fluid restrict 48 ounces
Appears euvolemic except for the right lower extremity which is circulatory
Urine sodium is 6 despite being on p.o. Lasix
I will repeat urine indices
Give 1 dose of Samsca
[2024-09-29] MEDS: SAMSCA 15 MG PO (16:09)
[2024-09-29 17:13] LABS: Blood Urea Nitrogen 25 mg/dl (9-20); Calcium 9.7 mg/dl (8.4-10.2); Carbon Dioxide 28 mmol/L (22-30); Chloride 97 mmol/L (98-107); Estimated Creatinine Clearance 49 ml/min; Glucose 147 mg/dl (70-99); Potassium 4.1 mmol/L (3.5-5.1); Sodium 127 mmol/L (135-145); eGFR 54.07
[2024-09-29] MEDS: STERILE WATER FOR INJECTION IV (18:08)
[2024-09-29] MEDS: MAXIPIME IV (18:08)
[2024-09-30] VITALS (17 sets, daily range): BP systolic 103–128; BP diastolic 63–81; PULSE 73; O2SAT 95
[2024-09-30] MEDS: ZOSYN 50 IV ×4 (01:19→23:50)
[2024-09-30] MEDS: ROXICODONE 10 MG PO ×3 (01:25→20:44)
[2024-09-30 07:17] LABS: Hematocrit 37.3 % (39.0-52.0); Hemoglobin 12.5 g/dL (13.0-18.0); Mean Corp Hgb Conc. 33.5 g/dL (33.0-37.0); Mean Corpuscular Volume 100.0 fL (80.0-94.0); Platelet Count 350 10^3/uL (130-400); Red Cell Dist. Width 12.2 % (11.5-14.5)
[2024-09-30] MEDS: SPIRIVA RESPIMAT 2.5 MCG 2 PUFF INH (07:29)
[2024-09-30] MEDS: STRIVERDI RESPIMAT 2 PUFF INH (07:29)
[2024-09-30] MEDS: NICODERM TRANSDERMAL 14 MG TRANSDERM (08:04)
[2024-09-30] MEDS: VITAMIN B1 100 MG PO (08:04)
[2024-09-30] MEDS: ZESTRIL 40 MG PO (08:04)
[2024-09-30] MEDS: LASIX 40 MG PO ×2 (08:04→16:11)
[2024-09-30] MEDS: CRESTOR 20 MG PO (08:04)
[2024-09-30] MEDS: FOLVITE 1 MG PO (08:04)
[2024-09-30] MEDS: CARDIZEM CD 180 MG PO (08:04)
[2024-09-30] MEDS: PROTONIX 40 MG PO (08:04)
[2024-09-30] MEDS: ASPIR LOW (ENTERIC COATED) 81 MG PO (08:04)
[2024-09-30 08:26] LABS: Blood Urea Nitrogen 25 mg/dl (9-20); Calcium 9.7 mg/dl (8.4-10.2); Carbon Dioxide 27 mmol/L (22-30); Chloride 97 mmol/L (98-107); Estimated Creatinine Clearance 46 ml/min; Glucose 103 mg/dl (70-99); Potassium 4.0 mmol/L (3.5-5.1); Sodium 130 mmol/L (135-145); eGFR 49.77
--- NOTE | 2024-09-30 09:27 | W.PN.VS ---
Today's Communication / Plan
-
Discussed with Dr Johnson
Assessment/Plan
-
Assessment: 69-year-old male POD #5 Extensive right iliofemoral endarterectomy (distal external iliac artery, common femoral artery, profunda femoris artery, origin of SFA) with bovine pericardial patch angioplasty and profundoplasty. Right femoral
to xujwb-vvh-xtzj popliteal artery bypass with 8 mm ringed [place] Propaten graft.
Plan:
Physical therapy as tolerated
Appreciate cardiology
Wound care per podiatry
monitor WBC
Defer to podiatry for weightbearing status/shoe
Incentive spirometry
Encourage smoking cessation education
xarelto
We will return to change dressing
Subjective Data
-
Date of Service: September 30, 2024
Pt seen at bedside this am. Pt offers no complaints at this time. No events overnight.
Objective Data
-
Vital Signs
Temp Pulse Resp BP Pulse Ox
98.5 F 75 16 120/80 98
09/30/24 07:40 09/30/24 08:04 09/30/24 07:40 09/30/24 08:04 09/30/24 07:40
Intake and Output
09/29/24 09/30/24 10/01/24
06:59 06:59 06:59
Intake Total 960 / 960 1660 / 1660
Output Total 100 / 100 2300 / 2300
Balance 860 / 860 -640 / -640
Intake:
Oral fluids 960 / 960 1240 / 1240
IV piggybacks 420 / 420
Output:
Urine, Voided 100 / 100 2300 / 2300
Lab Results
09/30/24 07:06
09/30/24 07:06
Calcium 9.7 mg/dl (8.4-10.2) 09/30/24 07:06
Phosphorus Cancelled 09/25/24 14:18
Magnesium 1.7 mg/dl (1.6-2.3) 09/25/24 19:27
Total Bilirubin 0.7 mg/dl (0.2-1.3) 09/25/24 10:15
AST 23 U/L (17-59) 09/25/24 10:15
ALT 11 U/L (0-50) 09/25/24 10:15
Alkaline Phosphatase 84 U/L (38-126) 09/25/24 10:15
Total Protein 6.5 g/dl (6.3-8.2) 09/25/24 10:15
Albumin 3.7 g/dl (3.5-5.0) 09/25/24 10:15
Physical Exam
-
Resting in bed comfortably
No tachycardia
No dyspnea on room air
ABD soft, nontender, nondistended
Right lower extremity surgical sites GREGORY serous drainage noted- will return to redress
Right PT and AT signal, right wrapped by podiatry dressing dry
--- NOTE | 2024-09-30 09:36 | W.PN.HOSP.TC ---
Addendum entered and electronically signed by Isidoro Aguirre MD 09/30/24 23:34:
Attending Addendum-
I saw and evaluated the patient. I reviewed the resident�s note and agree with findings and plan as documented in the resident�s note. Sub: pain present in right leg but well controlled. No complaints No fevers chills NV. Full 12 point ROS reviewed
and negative except as documented Exam: Vitals reviewed in chart GEN-NAD heart RRR lungs clear abd soft LE right 4th fith toe amp, right inner thigh incision stapled CDI
# Purulent cellulitis
# Peripheral artery disease
# Limb threatening chronic ischemia
- s/p right iliofemoral endarterectomy with bovine plasty angioplasty and right fem pop bypass-09/25 POD #5
- 4th/5th toe wound present with purulence s/p amputation with podiatry on 09/26 POD # 4
- podiatry to close wound this week- left open
- MRSA screen negative
- cont zosyn-day 2 wound cx sensi reviewed polymicrbial
- CBC trending down
- monitor VS (Afebrile)
- continue rosuvastatin 20mg (LDL at goal) and aspirin
- incentive spirometry
- f/u podiatry recs
- f/u vascular recs
# atrial flutter with controlled ventricular response
- new onset, occurred in PACU
- xarelto continued await OR decision
- per cardiology, continue lisinopril and lasix dilt
- cont po lasix BID
- f/u PM BMP
- echo-09/30-Preserved systolic LV function, roughly estimated ejection fraction EF 60-65%.
# Hyponatremia
- could be chronic
- nephrology consulted samsca given previously
- increase lasix
# Tobacco/EtoH use
- spiriva daily and duonebs prn for probable COPD
- nicotine patches
- savings counselor on smoking cessation
- monitor for EtOH symptoms
- continue thiamine, folic acid
# HTN - continue amlodipine, lisinopril
# COPD - continue vyjcdumkhu-brcsfix-gizpzsmcnk inhalers daily
# GERD - continue pantoprazole
DVTppx: resume xarelto
Code: full
ACP
Patient consented to discuss, was alone, time spent explanation of advance directives, changes in health status, patient�s health care wishes if the patient becomes unable to make health decisions, goals of care, code status, and prognosis desires
to be full code 'do it all doc'- 16 minutes
Time spent coordinating care, review of plan of care with resident, personally reviewed previous records in EMR, med rec, labs, radiology, d/w nursing, pods, total time documented is exclusive of any additional time listed that was spent in advance
care planning discussion -� 52 minutes
Original Note:
Today's Communication/Plan
-
Continue Xarelto until new OR date is available
Continue dounebs for wheezing prn
Assessment / Plan
Assessment / Plan
In summary, this is a 69 yo male With a PMH of HTN, PVD, With poorly healing right fifth toe, with progressive claudication symptoms as an outpatient. He came to the ED with a chronic wound on right foot that has worsened with erythema, purulence
concerning for cellulitis.
# Purulent cellulitis s/p 4th & 5th toe amputation on 09/26
# Peripheral artery disease s/p right iliofemoral endarterectomy with bovine plasty angioplasty and right fem pop bypass
# Limb threatening chronic ischemia
- 4th/5th toe wound present with purulence s/p amputation with podiatry on 09/26
- Podiatry recs: return to OR later this week for closure vs vac, saline packing change daily
- After discussion with podiatry resume Xarelto 09/30/2024 Until the OR date available
- MRSA screen negative
- cefepime was switched to Zosyn for anaerobic coverage
- 09/30/2024 is day #2 of zosyn; total duration of abx is day 5 (started on 09/26)
- Monitor temp and leukocytosis- WBC 15.9 (decreased from 17.2)
- He is Afebrile
- continue rosuvastatin 20mg (LDL at goal) and aspirin
- incentive spirometry
- f/p vascular recs
-f/u Podiatry recs
# atrial flutter with controlled ventricular response
- new onset, occurred in PACU; was also supposed to follow-up with cardiology for cardiac ischemic workup
- TSH within normal limits; NTproBNP 900s (unsure baseline)
- per cardiology recs: continue diltiazem
- per cardiology, continue lisinopril and lasix
- concern for volume status up --> lasix 20mg IV once today
- f/u PM BMP
- ECHO EF 60-65%, Probable aortic sclerosis without stenosis or regurgitation
# Hyponatremia
- could be chronic; however, downtrending this admission
- 09/30: serum Na 130
- nephrology consulted- continue lasix 40mg PO BID, Continue lisinopril for now
-Follow BMP
# Tobacco/EtoH use
- spiriva daily and duonebs prn for probable COPD- wheezing heard on PE today continue Duonebs therapy prn
-3L of Oxygen SaO2 98%
- nicotine patches
- savings counselor on smoking cessation
- monitor for EtOH symptoms
- continue thiamine, folic acid
# Chronic issues per below
# HTN - continue amlodipine 10mg daily, lisinopril 40mg daily, furosemide 20mg daily
# COPD - continue ldbiftnpav-ewhffzl-zsnlqgehln inhalers daily
# GERD - continue pantoprazole 40mg daily
DVTppx: Xarelto 20mg PO
Code: full
Diet: regular
Anticipated Discharge: > 48 hours
Subjective/Interval History
-
Date of Service: September 30, 2024
Patient seen at bedside in the morning. He reports right lower leg pain since surgery. He rates his pain 5/10. Pain radiates from right le to thigh. No overnight events besides pain.
His appetite is good. He drank 1 cup of water since morning. Podiatry is going to close his wound today.
Difficulty with hearing
Objective Data
-
Labs:
Laboratory Results
09/30/24
07:06
WBC 15.9 H
Hgb 12.5 L
Hct 37.3 L
Plt Count 350
Sodium 130 L
Potassium 4.0
Chloride 97 L
Carbon Dioxide 27
BUN 25 H
Creatinine 1.5 H
Glucose 103 H
Calcium 9.7
Vital Signs:
Vital Signs
Temp Pulse Resp BP Pulse Ox
98.5 F 75 16 120/80 98
09/30/24 07:40 09/30/24 08:04 09/30/24 07:40 09/30/24 08:04 09/30/24 07:40
I&O
09/29/24 09/30/24 10/01/24
06:59 06:59 06:59
Intake Total 960 / 960 1660 / 1660
Output Total 100 / 100 2300 / 2300
Balance 860 / 860 -640 / -640
Review of Systems
-
History Source: Patient
Constitutional: Reports No Symptoms
EENT: Reports No Symptoms Reported
Respiratory: Reports Wheezing
Cardiac: Reports No Symptoms
Abdomen/GI: Reports No Symptoms
Musculoskeletal: Reports Edema (Right leg pain from le to thigh, right LE mild swelling)
Skin: Reports No Symptoms
Neuro: Reports No Symptoms
Endocrine: Reports No Symptoms
Hematologic / Lymphatic: Reports No Symptoms
Psych: Reports Other (Calm)
Physical Exam
-
General: Well Developed, Well Nourished and Comfortable
HEENT: Normocephalic and Atraumatic
Respiratory: Wheezes
Cardiac: Regular Rhythm and S1/S2
Breast: Deferred by me
GI: Soft, Nontender and Nondistended
Rectal: Deferred by Provider
Genito-urinary: Deferred by me
Musculoskeletal: Edema, Right Lower Extrem
Skin: Warm
Neuro: AO x 3
Psych: Calm
--- NOTE | 2024-09-30 12:26 | W.PN.NEPH.PH ---
Today's Communication / Plan
-
Follow BMP
Assessment/Plan
-
69-year-old male presentation with RLE pain, concern for limb ischemia with PAD s/p urgent extensive right iliofemoral endarterectomy with bovine patch angioplasty and profundoplasty and right femoral to uxchc-kji-ymhg popliteal artery bypass
09/25/2024
Other medical history includes atrial flutter, new diagnosis of unclear duration, asymptomatic HTN HLD COPD GERDOngoing tobacco use Daily ETOH use
Renal consultation for hyponatremia decreasing since admission down to 127 with a urine sodium of 6 and a serum osmolality of 281
Impression.
Hyponatremia
PAD status post intervention above
A-flutter
Hypertension
Tobacco use
Moderate alcohol use
Plan
Increase Lasix 40 mg p.o. BID
Follow BMP
Okay to continue lisinopril for now
-
-
Date of Service: September 30, 2024
CC / HPI / ROS
-
Chief Complaint:
Hyponatremia
History of Present Illness:
Sodium up to 130
DAYRON/Cr up to 1.5
BP stable
Right lower extremity edema
Review of Systems:
No chest pain or shortness of breath
Complains of edema
Labs
-
Labs:
WBC 15.9 10^3/uL (4.8-10.8) H 09/30/24 07:06
RBC 3.73 10^6/uL (4.70-6.10) L 09/30/24 07:06
Hgb 12.5 g/dL (13.0-18.0) L 09/30/24 07:06
Hct 37.3 % (39.0-52.0) L 09/30/24 07:06
Plt Count 350 10^3/uL (130-400) 09/30/24 07:06
Sodium 130 mmol/L (135-145) L 09/30/24 07:06
Potassium 4.0 mmol/L (3.5-5.1) 09/30/24 07:06
Chloride 97 mmol/L (98-107) L 09/30/24 07:06
Carbon Dioxide 27 mmol/L (22-30) 09/30/24 07:06
BUN 25 mg/dl (9-20) H 09/30/24 07:06
Creatinine 1.5 mg/dL (0.7-1.3) H 09/30/24 07:06
eGFR 49.77 09/30/24 07:06
Glucose 103 mg/dl (70-99) H 09/30/24 07:06
Calcium 9.7 mg/dl (8.4-10.2) 09/30/24 07:06
Phosphorus Cancelled 09/25/24 14:18
Uij-K-Bfoqidmokwc Pept 1930 pg/ml 09/29/24 05:40
Albumin 3.7 g/dl (3.5-5.0) 09/25/24 10:15
Physical Exam
-
Vital Signs:
Vital Signs
Temp Pulse Resp BP Pulse Ox
98.4 F 72 16 107/71 95
09/30/24 11:45 09/30/24 11:45 09/30/24 11:45 09/30/24 11:45 09/30/24 11:45
Cardiovascular:: Regular rate and rhythm
Respiratory:: Bilateral: Coarse
Lung Excursion:: Normal
Abdomen:: Nontender and Soft
Bowel Sounds:: Normal
Extremity Edema:: +2: Right: and None: Left:
--- NOTE | 2024-09-30 14:09 | CARDSERVLU ---
Echocardiogram with Lumason completed after protocol screening completed. Allergies verified.
Patent IV site: _Left hand metacarpal 22 G PC____
IV site flushed with 0.9% NaCl pre and post administration.
Diluted bolus method utilized to enhance visualization of ventricular sánchez.
Total volume given: __3__ mL
Patient tolerated all procedures well without complications.
--- NOTE | 2024-09-30 14:55 | CM ---
CM reviewed chart
Plan for OR today for closure of RLE
Will need post op PT/OT orders
SNF referrals previously sent and pending
Pt will require [employer] auth
Discharge Disposition- SNF pending auth
--- NOTE | 2024-09-30 18:33 | W.PN.UPDATE ---
Update Note
Progress Note Update
69M s/p R 05/11 MT head resection, packed open
- NWB RLE
- continue abx
- plan to return to OR later this week for closure vs vac, will heena WBC
- daily saline packing change
- will reassess in AM
[2024-09-30] MEDS: ZOSYN IV (19:13)
[2024-09-30] MEDS: DILAUDID 0.25 MG IV ×2 (19:19→19:36)
--- NOTE | 2024-09-30 20:30 | PTCARENOTE ---
Pt returned to [address] [place] [id number] in bed from PACU. Underwent an external debridement RLE, amputation 4th & 5th metatarsal heads by Dr. Cat, EBL 20. General anesthesia. Vss. Pt on 2L humidified o2 NC. Complaining of 10/10 pain, 10mg oxy administered.
Family member at bedside. Care ongoing.
[2024-10-01] VITALS (7 sets, daily range): BP systolic 97–116; BP diastolic 62–78; PULSE 78; O2SAT 92
[2024-10-01] MEDS: ROXICODONE 10 MG PO ×3 (00:55→15:08)
[2024-10-01] MEDS: ZOSYN 50 IV ×3 (05:59→17:27)
[2024-10-01] MEDS: SPIRIVA RESPIMAT 2.5 MCG 2 PUFF INH (07:35)
[2024-10-01] MEDS: STRIVERDI RESPIMAT 2 PUFF INH (07:35)
[2024-10-01 08:18] LABS: Hematocrit 40.6 % (39.0-52.0); Hemoglobin 14.0 g/dL (13.0-18.0); Mean Corp Hgb Conc. 34.5 g/dL (33.0-37.0); Mean Corpuscular Volume 99.0 fL (80.0-94.0); Platelet Count 425 10^3/uL (130-400); Red Cell Dist. Width 12.0 % (11.5-14.5)
[2024-10-01] MEDS: VITAMIN B1 100 MG PO (08:37)
[2024-10-01] MEDS: PROTONIX 40 MG PO (08:37)
[2024-10-01] MEDS: CRESTOR 20 MG PO (08:37)
[2024-10-01] MEDS: NICODERM TRANSDERMAL 14 MG TRANSDERM (08:37)
[2024-10-01] MEDS: FOLVITE 1 MG PO (08:37)
[2024-10-01] MEDS: ASPIR LOW (ENTERIC COATED) 81 MG PO (08:37)
[2024-10-01] MEDS: CARDIZEM CD 180 MG PO (08:44)
[2024-10-01 08:49] LABS: Blood Urea Nitrogen 27 mg/dl (9-20); Calcium 9.9 mg/dl (8.4-10.2); Carbon Dioxide 25 mmol/L (22-30); Chloride 96 mmol/L (98-107); Estimated Creatinine Clearance 43 ml/min; Glucose 124 mg/dl (70-99); Potassium 4.5 mmol/L (3.5-5.1); Sodium 131 mmol/L (135-145); eGFR 46.06
--- NOTE | 2024-10-01 09:13 | W.PN.UPDATE ---
Update Note
Progress Note Update
69M s/p R 05/11 MT head resection, packed open. Doing well this AM. cft wnl, sensation intact to pedal distributions, motor function intact
- WBAT RLE in surgical shoe
- continue abx
- plan to return to OR later this week for closure vs vac, will trend WBC
- will reassess packing this afternoon, followed bydaily saline packing change
- will follow
--- NOTE | 2024-10-01 09:22 | WOUNDNOTE ---
CARLITO RN NOTE: Reviewed Dr. Low's note post surgery, daily saline packing done by Podiatry. WBAT with surgical shoe per Podiatry. Plan is OR later this week for closure vs vac, will follow along peripherally and assist as needed.
--- NOTE | 2024-10-01 09:29 | W.PN.HOSP.TC ---
Addendum entered and electronically signed by Isidoro Aguirre MD 10/01/24 22:19:
Attending Addendum-
I saw and evaluated the patient. I reviewed the resident�s note and agree with findings and plan as documented in the resident�s note. Sub: called by nursing re hypotension. denies pain in right leg. No complaints. No fevers chills NV. Full 12
point ROS reviewed and negative except as documented Exam: Vitals reviewed in chart GEN-NAD heart RRR lungs clear abd soft LE right 4th fith toe amp, right inner thigh incision stapled CDI 2+ pitting edema B/L
# Purulent cellulitis
# Peripheral artery disease
# Limb threatening chronic ischemia
- s/p right iliofemoral endarterectomy with bovine plasty angioplasty and right fem pop bypass-09/25- POD#6
- 4th/5th toe wound present with purulence s/p amputation with podiatry on 09/26- POD#5
- Right fourth and fifth partial metatarsal excisions and multiplane debridement on 09/30- POD#1
- podiatry to place vac vs close
- MRSA screen negative
- cont zosyn-day 3 wound cx -sensi reviewed polymicrobial- kleb citro entero
- CBC trending up- likely post op
- WBAT RLE in shoe
- continue rosuvastatin 20mg and aspirin
- f/u podiatry recs
- f/u vascular recs
# Atrial flutter
- new onset, occurred in PACU
- xarelto continued
- hold lisinopril and lasix cont diltiazem
- hold po lasix BID
- f/u BMP
- echo-09/30-Preserved systolic LV function, roughly estimated ejection fraction EF 60-65%.
# Hyponatremia
- could be chronic
- nephrology consulted samsca given previously
- hold lasix
# Tobacco/EtoH use
- spiriva daily and duonebs prn for probable COPD
- nicotine patches
- diet counselor on smoking cessation
- monitor for EtOH symptoms
- continue thiamine, folic acid
# HTN - hold amlodipine, lisinopril
# COPD - continue irhvayqohf-nxkncfy-ahbtpfwrwz inhalers daily
# GERD - continue pantoprazole
DVTppx: resume xarelto
Code: full
Dispo DC to SNF soon after vac placed
Time spent coordinating care, review of plan of care with resident, personally reviewed records in EMR, med rec, consults, notes, labs, radiology, d/w nursing pods vasc � 52 mins
Original Note:
Today's Communication/Plan
-
moderating Volume status
Weight bearing exercises
PT/OT evaluation ordered
Assessment / Plan
Assessment / Plan
In summary, this is a 69 yo male With a PMH of HTN, PVD, With poorly healing right fifth toe, with progressive claudication symptoms as an outpatient. He came to the ED with a chronic wound on right foot that has worsened with erythema, purulence
concerning for cellulitis.
# Purulent cellulitis s/p 4th & 5th toe amputation on 09/26
# Peripheral artery disease s/p right iliofemoral endarterectomy with bovine plasty angioplasty and right fem pop bypass
# Limb threatening chronic ischemia
- 4th/5th toe wound present with purulence s/p amputation with podiatry on 09/26
- Podiatry recs: return to OR later this week for closure vs vac, saline packing change daily
- After discussion with podiatry resume Xarelto 09/30/2024 Until the OR date available
- 09/30/2024 Right fourth and fifth partial metatarsal excisions and multiplane debridement was done
-10/01/2024 TT surgeon they decided on vac therapy instead of wound closure.
-WBC 16.8 from- will monitor CBC
- MRSA screen negative
- cefepime was switched to Zosyn for anaerobic coverage
- 10/01/2024 is day #3 of zosyn; total duration of abx is day 5 (started on 09/26)
- Monitor temp and leukocytosis- WBC 16.8 ( from 15.9/ 17.2)
- He is Afebrile
- continue rosuvastatin 20mg (LDL at goal) and aspirin
- incentive spirometry
-Orthopedics reccommended weight bearing exercises
- f/p vascular recs
-f/u Podiatry recs
# atrial flutter with controlled ventricular response
- new onset, occurred in PACU; was also supposed to follow-up with cardiology for cardiac ischemic workup
- TSH within normal limits; NTproBNP 900s (unsure baseline)
- per cardiology recs: continue diltiazem
- per cardiology, hold Lasix, BP was 110/70, hold lisinopril
- ECHO EF 60-65%, Probable aortic sclerosis without stenosis or regurgitation
# Hyponatremia
- could be chronic; however, downtrending this admission
- 09/30: serum Na 131
- 09/30nephrology consulted - Lasix 40 mg p.o. BID, Follow BMP, Discontinue lisinopril, Maintain fluid restriction- will check volume on 10/01 will start lasix
-Follow BMP
# Tobacco/EtoH use
- spiriva daily and duonebs prn for probable COPD- wheezing heard on PE today continue Duonebs therapy prn
-3L of Oxygen SaO2 98%
- nicotine patches
- diet counselor on smoking cessation
- monitor for EtOH symptoms
- continue thiamine, folic acid
#Constipation
- Possibly opioid related- scheduled Senna Docusate 1tb BID
# Chronic issues per below
# HTN - continue amlodipine 10mg daily, lisinopril 40mg daily, furosemide 20mg daily
# COPD - continue cuzsislczf-nqpykpf-dmqqvfhbsv inhalers daily
# GERD - continue pantoprazole 40mg daily
DVTppx: Xarelto 20mg PO
Code: full
Diet: regular
Anticipated Discharge: > 48 hours
Subjective/Interval History
-
Date of Service: October 01, 2024
He is sitting on the bed. He has a dry cough. He has a lot of pain on his right foot and thigh. Her rates 10/10. They are both swollen. He did not pass gas, or bowel movements since his surgery.
Objective Data
-
Labs:
Laboratory Results
10/01/24
07:17
WBC 16.8 H
Hgb 14.0
Hct 40.6
Plt Count 425 H D
Sodium 131 L
Potassium 4.5
Chloride 96 L
Carbon Dioxide 25
BUN 27 H
Creatinine 1.6 H
Glucose 124 H
Calcium 9.9
Vital Signs:
Vital Signs
Temp Pulse Resp BP Pulse Ox
97.8 F 82 16 107/62 98
10/01/24 07:35 10/01/24 08:44 10/01/24 07:38 10/01/24 08:44 10/01/24 07:38
I&O
09/30/24 10/01/24 10/02/24
06:59 06:59 06:59
Intake Total 1660 / 1660 1190 / 1190
Output Total 2300 / 2300 825 / 825
Balance -640 / -640 365 / 365
Review of Systems
-
History Source: Patient
Constitutional: Reports No Symptoms
EENT: Reports No Symptoms Reported
Respiratory: Reports Cough (dry)
Cardiac: Reports No Symptoms
Abdomen/GI: Reports No Symptoms
Genitourinary: Reports No Symptoms
Musculoskeletal: Reports Edema (right leg)
Skin: Reports No Symptoms
Neuro: Reports No Symptoms
Physical Exam
-
General: Well Developed and Well Nourished
HEENT: Normocephalic and Atraumatic
Respiratory: Wheezes
Cardiac: Regular Rhythm
Breast: Deferred by me
GI: Soft, Nontender, Nondistended and Normal Bowel Sounds
Musculoskeletal: Edema, Right Lower Extrem
Skin: Warm
Neuro: AO x 3
Psych: Calm
--- NOTE | 2024-10-01 10:21 | W.PN.NEPH.PH ---
Today's Communication / Plan
-
Hold lisinopril
Assessment/Plan
-
69-year-old male presentation with RLE pain, concern for limb ischemia with PAD s/p urgent extensive right iliofemoral endarterectomy with bovine patch angioplasty and profundoplasty and right femoral to tzccn-swp-exuw popliteal artery bypass
09/25/2024
Other medical history includes atrial flutter, new diagnosis of unclear duration, asymptomatic HTN HLD COPD GERDOngoing tobacco use Daily ETOH use
Renal consultation for hyponatremia decreasing since admission down to 127 with a urine sodium of 6 and a serum osmolality of 281
Impression.
Hyponatremia
PAD status post intervention above
A-flutter
Hypertension
Tobacco use
Moderate alcohol use
Plan
Lasix 40 mg p.o. BID
Follow BMP
Discontinue lisinopril
Maintain fluid restriction
-
-
Date of Service: October 01, 2024
CC / HPI / ROS
-
Chief Complaint:
Hyponatremia
History of Present Illness:
Sodium up to 131
DAYRON/Cr up to 1.6
BP stable but low
Right lower extremity edema
Review of Systems:
No chest pain or shortness of breath
Complains of edema
Labs
-
Labs:
WBC 16.8 10^3/uL (4.8-10.8) H 10/01/24 07:17
RBC 4.10 10^6/uL (4.70-6.10) L 10/01/24 07:17
Hgb 14.0 g/dL (13.0-18.0) 10/01/24 07:17
Hct 40.6 % (39.0-52.0) 10/01/24 07:17
Plt Count 425 10^3/uL (130-400) H D 10/01/24 07:17
Sodium 131 mmol/L (135-145) L 10/01/24 07:17
Potassium 4.5 mmol/L (3.5-5.1) 10/01/24 07:17
Chloride 96 mmol/L (98-107) L 10/01/24 07:17
Carbon Dioxide 25 mmol/L (22-30) 10/01/24 07:17
BUN 27 mg/dl (9-20) H 10/01/24 07:17
Creatinine 1.6 mg/dL (0.7-1.3) H 10/01/24 07:17
eGFR 46.06 10/01/24 07:17
Glucose 124 mg/dl (70-99) H 10/01/24 07:17
Calcium 9.9 mg/dl (8.4-10.2) 10/01/24 07:17
Phosphorus Cancelled 09/25/24 14:18
Cpi-N-Xbvpbyjcysg Pept 1930 pg/ml 09/29/24 05:40
Albumin 3.7 g/dl (3.5-5.0) 09/25/24 10:15
Physical Exam
-
Vital Signs:
Vital Signs
Temp Pulse Resp BP Pulse Ox
97.8 F 82 16 107/62 98
10/01/24 07:35 10/01/24 08:44 10/01/24 07:38 10/01/24 08:44 10/01/24 07:38
Cardiovascular:: Regular rate and rhythm
Respiratory:: Bilateral: Coarse
Lung Excursion:: Normal
Abdomen:: Nontender and Soft
Bowel Sounds:: Normal
Extremity Edema:: +2: Right: and None: Left:
[2024-10-01] MEDS: ZESTRIL PO (10:32)
--- NOTE | 2024-10-01 10:34 | W.PN.UPDATE ---
Update Note
Progress Note Update
Seen and examined. Overall doing okay. Right thigh and groin incisions all clean dry and intact. Has serous drainage from blistering skin issues lateral and medially. All clean though. Good graft function with easily palpable DP pulse now on
the foot. Foot is warm. Packing removed. Wound is clean. Repacked. Plan/doing well overall from a revascularization standpoint. Continue local wound care. I think would benefit from VAC placement for healing here. Will discuss with foot
surgery.
--- NOTE | 2024-10-01 11:39 | CM ---
Reviewed the chart notes and spoke with the patient at the bedside. Reviewed that the SNF referral have come back with either no beds or [id number]. Permission received to send to additional facilities within the patient's area. CM continues
to be available to patient/family and is monitoring medical plan for needs at discharge.
Plan: Discharge to SNF/rehab once medically stable, bed secured, and auth obtained.
[2024-10-01] MEDS: LASIX PO ×2 (13:58→17:22)
[2024-10-01] MEDS: XARELTO 20 MG PO (17:27)
[2024-10-01] MEDS: DILAUDID 0.5 MG IV (21:07)
[2024-10-01] MEDS: SENOKOT-S 1 TABLET PO (21:07)
[2024-10-02] MEDS: ZOSYN 50 IV ×5 (00:08→23:18)
[2024-10-02 03:18] VITALS: BP 120/78
[2024-10-02] MEDS: ROXICODONE 10 MG PO ×2 (05:21→16:01)
[2024-10-02 07:03] LABS: Hematocrit 36.1 % (39.0-52.0); Hemoglobin 12.2 g/dL (13.0-18.0); Mean Corp Hgb Conc. 33.8 g/dL (33.0-37.0); Mean Corpuscular Volume 100.0 fL (80.0-94.0); Nucleated Red Blood Cells % 0 % (-); Platelet Count 457 10^3/uL (130-400); Red Cell Dist. Width 12.0 % (11.5-14.5)
[2024-10-02 07:25] LABS: ALT (SGPT) 15 U/L (0-50); AST (SGOT) 32 U/L (17-59); Albumin 3.1 g/dl (3.5-5.0); Alkaline Phosphatase 54 U/L (38-126); Blood Urea Nitrogen 32 mg/dl (9-20); Calcium 10.2 mg/dl (8.4-10.2); Carbon Dioxide 31 mmol/L (22-30); Chloride 98 mmol/L (98-107); Estimated Creatinine Clearance 40 ml/min; Glucose 104 mg/dl (70-99); Potassium 3.9 mmol/L (3.5-5.1); Sodium 131 mmol/L (135-145); Total Protein 5.7 g/dl (6.3-8.2); eGFR 42.83
[2024-10-02] MEDS: STRIVERDI RESPIMAT 2 PUFF INH (07:37)
[2024-10-02] MEDS: SPIRIVA RESPIMAT 2.5 MCG 2 PUFF INH (07:37)
[2024-10-02 07:40] VITALS: BP 115/81
[2024-10-02] MEDS: VITAMIN B1 100 MG PO (08:08)
[2024-10-02] MEDS: CARDIZEM CD 180 MG PO (08:08)
[2024-10-02] MEDS: NICODERM TRANSDERMAL 14 MG TRANSDERM (08:09)
[2024-10-02] MEDS: ASPIR LOW (ENTERIC COATED) 81 MG PO (08:09)
[2024-10-02] MEDS: SENOKOT-S 1 TABLET PO ×2 (08:09→20:32)
[2024-10-02] MEDS: FOLVITE 1 MG PO (08:09)
[2024-10-02] MEDS: PROTONIX 40 MG PO (08:09)
[2024-10-02] MEDS: CRESTOR 20 MG PO (08:09)
--- NOTE | 2024-10-02 08:55 | W.PN.HOSP.TC ---
Addendum entered and electronically signed by Isidoro Aguirre MD 10/02/24 21:59:
Attending Addendum-
I saw and evaluated the patient. I reviewed the resident�s note and agree with findings and plan as documented in the resident�s note. Sub: complains if abd distention and constipation, denies pain in right leg. No fevers chills NV. Full 12 point
ROS reviewed and negative except as documented Exam: Vitals reviewed in chart GEN-NAD heart RRR lungs clear abd distended pos BS no rebound/guarding, LE right 4th fith toe amp bandaged, right inner thigh incision stapled CDI, 2+ pitting edema B/L
non palpable bladder
# Purulent cellulitis
# Peripheral artery disease
# Limb threatening chronic ischemia
- 09/25- POD#7-s/p right iliofemoral endarterectomy with bovine plasty angioplasty and right fem pop bypass
- 09/26- POD#6-4th/5th toe wound present with purulence s/p amputation with podiatry
- 09/30- POD#2-Right fourth and fifth partial metatarsal excisions and multiplane debridement
- podiatry leaning towards placing vac vs close
- MRSA screen negative
- cont zosyn-day 4/7 wound cx -sensi reviewed and susceptible- to complete 7 day course, repeat wound cx- 09/30-NG
- CBC trending up- likely post op, stress/constipation no signs of worsening infection
- WBAT RLE in shoe
- continue rosuvastatin 20mg and aspirin
- f/u podiatry recs
- f/u vascular recs
# Atrial flutter
- new onset, occurred in PACU
- xarelto continued - will need renal dosing
- hold lisinopril and cont diltiazem
- cont po lasix BID
- echo-09/30-Preserved systolic LV function, roughly estimated ejection fraction EF 60-65%.
# DAYRON
- worsening, h/o atrophic kidney
- likely prerenal due to hypervolemia- cont lasix
- hold lisinopril
- check renal us
- nephro on board- appreciate input
- repeat BMP in am
# Severe Constipation
- check KUB
- enema x 1
- start aggressive bowel regimen
# Hyponatremia
- could be chronic, stable
- nephrology input appreciated
- cont lasix
- repeat BMP in am
# Tobacco/EtoH use
- Spiriva daily and duonebs prn for probable COPD
- nicotine patch
- counselor aid on smoking cessation
- continue thiamine, folic acid
# HTN - hold amlodipine, lisinopril
# COPD - continue mtocuyvpqm-akvxogy-aqwjnvymwf inhalers daily
# GERD - continue pantoprazole
DVTppx: cont xarelto renally dose
Code: full
Dispo DC to SNF soon after vac placed
Time spent coordinating care, review of plan of care with resident, personally reviewed records in EMR, med rec, consults, notes, labs, radiology, d/w nursing vasc � 53 mins
Original Note:
Today's Communication/Plan
-
Abdomen Xray
Obstruction series
Start Enema
Renal US
DAYRON?- check Urine studies, Urine Na- FeNa
Check daily wait
Continue weight bearing exercise
Assessment / Plan
Assessment / Plan
In summary, this is a 69 yo male With a PMH of HTN, PVD, With poorly healing right fifth toe, with progressive claudication symptoms as an outpatient. He came to the ED with a chronic wound on right foot that has worsened with erythema, purulence
concerning for cellulitis.
# Purulent cellulitis s/p 4th & 5th toe amputation on 09/26
# Peripheral artery disease s/p right iliofemoral endarterectomy with bovine plasty angioplasty and right fem pop bypass
# Limb threatening chronic ischemia
- 4th/5th toe wound present with purulence s/p amputation with podiatry on 09/26
- Podiatry recs: return to OR later this week for closure vs vac, saline packing change daily
- After discussion with podiatry resume Xarelto 09/30/2024 Until the OR date available
- 09/30/2024 Right fourth and fifth partial metatarsal excisions and multiplane debridement was done
-10/01 Vascular surgery- clean wound, decided on vac therapy for healing here.
- 09/30 recommended WBAT RLE in surgical shoe
-WBC 18.6 ( from 16.8)- will monitor CBC and temperature
- MRSA screen negative
- cefepime was switched to Zosyn for anaerobic coverage
- 10/02 is day #4/5 of zosyn; total duration of abx is day 5 (started on 09/26)
- he is Afebrile
- continue rosuvastatin 20mg (LDL at goal) and aspirin
- incentive spirometry
- f/p vascular recs
-f/u Podiatry recs
# atrial flutter with controlled ventricular response
- new onset, occurred in PACU; was also supposed to follow-up with cardiology for cardiac ischemic workup
- TSH within normal limits; NTproBNP 900s (unsure baseline)
- per cardiology recs: continue diltiazem
- per cardiology, hold Lasix, BP was 110/70, hold lisinopril
- ECHO EF 60-65%, Probable aortic sclerosis without stenosis or regurgitation
# Hyponatremia
- could be chronic; however, downtrending this admission
- 09/30: serum Na 131
- 10/01 nephrology - Lasix 40 mg p.o. BID, Follow BMP, Discontinue lisinopril, Maintain fluid restriction- will check daily weight, BP 115/81 will hold lasix for now
-Follow BMP
#Acute kidney injury
-Renal US
-Creatinine 1.7 (before 1.6, 1.15--1), BUN 32 ( 27, 25--13)
-Order urine Studies
-Check urine sodium- calculate FeNa
- follow daily weight
#Rehabilitation
-OT recs- skilled rehab post acute care
#Constipation
- 10/01 Possibly opioid related- scheduled Senna Docusate 1tb BID
-10/02 Started Enema
-Ordered Abdominal Xray
-Obstruction series
# Tobacco/EtoH use
- spiriva daily and duonebs prn for probable COPD- wheezing heard on PE today continue Duonebs therapy prn
-3L of Oxygen SaO2 98%
- nicotine patches
- counselor aid on smoking cessation
- monitor for EtOH symptoms
- continue thiamine, folic acid
# Chronic issues per below
# HTN - continue amlodipine 10mg daily, lisinopril 40mg daily, furosemide 20mg daily
# COPD - continue lfmubivifs-qdbalzr-mxmunypvow inhalers daily
# GERD - continue pantoprazole 40mg daily
DVTppx: Xarelto 20mg PO
Code: full
Diet: Fluid restricted diet
Skilled Nursing home
Anticipated Discharge: > 48 hours
Subjective/Interval History
-
Date of Service: October 02, 2024
Patient is laying on his bed, he reports 2 days of abdominal pain that is worse now. He states his last bowel movement was before hospitalization. He reports right leg pain. He has a shortness of breath- he believes related to his abdominal pain.
Objective Data
-
Labs:
Laboratory Results
10/02/24
06:30
WBC 18.6 H
Hgb 12.2 L
Hct 36.1 L
Plt Count 457 H
Sodium 131 L
Potassium 3.9
Chloride 98
Carbon Dioxide 31 H
BUN 32 H
Creatinine 1.7 H
Glucose 104 H
Calcium 10.2
Total Bilirubin 0.6
AST 32
ALT 15
Alkaline Phosphatase 54
Vital Signs:
Vital Signs
Temp Pulse Resp BP Pulse Ox
98.0 F 116 16 115/81 91
10/02/24 07:40 10/02/24 08:08 10/02/24 07:40 10/02/24 08:08 10/02/24 07:40
I&O
10/01/24 10/02/24 10/03/24
06:59 06:59 06:59
Intake Total 1190 / 1190 1255 / 1255
Output Total 825 / 825 900 / 900
Balance 365 / 365 355 / 355
Review of Systems
-
History Source: Patient
EENT: Reports No Symptoms Reported
Respiratory: Reports Cough
Cardiac: Reports No Symptoms
Abdomen/GI: Reports Abdominal Pain and Constipated
Genitourinary: Reports No Symptoms
Musculoskeletal: Reports Edema
Skin: Reports No Symptoms
Neuro: Reports No Symptoms
Physical Exam
-
General: Well Developed, Well Nourished and Pain
HEENT: Normocephalic and Atraumatic
Respiratory: Wheezes
Cardiac: Regular Rhythm and S1/S2
Breast: Deferred by me
GI: Tender and Distended
Genito-urinary: Deferred by me
Musculoskeletal: Edema, Right Lower Extrem
Skin: Warm
Neuro: AO x 3
Psych: Calm
Data Reviewed
-
Labs: Labs Reviewed by me and Discussed with Physician
[2024-10-02 11:15] VITALS: BP 115/81
--- NOTE | 2024-10-02 11:32 | W.PN.VS ---
Addendum entered and electronically signed by Devan Michaels MD 10/03/24 07:59:
Seen and examined yesterday with [employer]. This is a late entry. Agree with findings and plan as discussed and noted below.
Original Note:
Today's Communication / Plan
-
Plan reviewed with attending Dr. Devan Michaels.
Assessment/Plan
-
Assessment: 69-year-old male s/p Extensive right iliofemoral endarterectomy (distal external iliac artery, common femoral artery, profunda femoris artery, origin of SFA) with bovine pericardial patch angioplasty and profundoplasty. Right femoral to
zrmto-azl-smpj popliteal artery bypass with 8 mm ringed [place] Propaten graft.
Plan:
Physical therapy as tolerated
Appreciate cardiology
Wound care per podiatry
monitor WBC
Defer to podiatry for weightbearing status/shoe
Incentive spirometry
Encourage smoking cessation education
xarelto
Continue antibiotics, blood cultures pending
Subjective Data
-
Date of Service: October 02, 2024
Patient seen and examined, endorses continued drainage from blistered areas on RLE upper thigh. Otherwise no complaints. Denies fever, chills, nausea, and vomiting.
Objective Data
-
Vital Signs
Temp Pulse Resp BP Pulse Ox
98.0 F 116 16 115/81 96
10/02/24 07:40 10/02/24 08:08 10/02/24 07:40 10/02/24 08:08 10/02/24 11:09
Intake and Output
10/01/24 10/02/24 10/03/24
06:59 06:59 06:59
Intake Total 1190 / 1190 1255 / 1255
Output Total 825 / 825 900 / 900
Balance 365 / 365 355 / 355
Intake:
Oral fluids 840 / 840 1080 / 1080
IV fluids (Total) 200 / 200
Normosol 200 / 200
IV piggybacks 150 / 150 150 / 150
Output:
Urine, Voided 825 / 825 900 / 900
Other:
Number of approximated MODERATE 1
amounts of urine
How many times incontinent 1
SATURATED amount urine
Lab Results
10/02/24 06:30
10/02/24 06:30
Calcium 10.2 mg/dl (8.4-10.2) 10/02/24 06:30
Phosphorus Cancelled 09/25/24 14:18
Magnesium 1.7 mg/dl (1.6-2.3) 09/25/24 19:27
Total Bilirubin 0.6 mg/dl (0.2-1.3) 10/02/24 06:30
AST 32 U/L (17-59) 10/02/24 06:30
ALT 15 U/L (0-50) 10/02/24 06:30
Alkaline Phosphatase 54 U/L (38-126) 10/02/24 06:30
Total Protein 5.7 g/dl (6.3-8.2) L 10/02/24 06:30
Albumin 3.1 g/dl (3.5-5.0) L 10/02/24 06:30
Physical Exam
-
Resting in bed comfortably
No tachycardia
No dyspnea on room air
ABD soft, nontender, nondistended
Right lower extremity surgical sites GREGORY serous drainage noted from blistered skin
Right PT and AT signal, right wrapped by podiatry dressing dry
--- NOTE | 2024-10-02 12:00 | PTCARENOTE ---
1200 Reached out via [employer] text to wound care nurse on duty regarding the order for the patients wound vac. Message sent but was not read.
--- NOTE | 2024-10-02 12:17 | CM ---
Reviewed the chart notes and spoke with the patient at the bedside. [facility] accepted via [employer]. Provided Medicare.gov rating to the patient. He will review. CM continues to be available to patient/family and is monitoring medical
plan for needs at discharge.
Plan: Discharge to SNF once medically stable, bed secured, and auth obtained.
--- NOTE | 2024-10-02 12:52 | W.PN.NEPH.PH ---
Today's Communication / Plan
-
Continue Lasix
AM labs
Assessment/Plan
-
69-year-old male presentation with RLE pain, concern for limb ischemia with PAD s/p urgent extensive right iliofemoral endarterectomy with bovine patch angioplasty and profundoplasty and right femoral to xjaap-rac-evmo popliteal artery bypass
09/25/2024
Other medical history includes atrial flutter, new diagnosis of unclear duration, asymptomatic HTN HLD COPD GERDOngoing tobacco use Daily ETOH use
Renal consultation for hyponatremia decreasing since admission down to 127 with a urine sodium of 6 and a serum osmolality of 281
Impression.
Hyponatremia
DAYRON
PAD status post intervention above
A-flutter
Hypertension
Tobacco use
Moderate alcohol use
Plan
Lasix 40 mg p.o. BID
Follow BMP
Discontinue lisinopril
Maintain fluid restriction
-
-
Date of Service: October 02, 2024
CC / HPI / ROS
-
Chief Complaint:
Hyponatremia
History of Present Illness:
Sodium up to 131
DAYRON/Cr (baseline creatinine 0.9�1.1) up to 1.6, 1.7
Right lower extremity edema
Review of Systems:
No chest pain or shortness of breath
Complains of edema
Labs
-
Labs:
WBC 18.6 10^3/uL (4.8-10.8) H 10/02/24 06:30
RBC 3.61 10^6/uL (4.70-6.10) L 10/02/24 06:30
Hgb 12.2 g/dL (13.0-18.0) L 10/02/24 06:30
Hct 36.1 % (39.0-52.0) L 10/02/24 06:30
Plt Count 457 10^3/uL (130-400) H 10/02/24 06:30
Sodium 131 mmol/L (135-145) L 10/02/24 06:30
Potassium 3.9 mmol/L (3.5-5.1) 10/02/24 06:30
Chloride 98 mmol/L (98-107) 10/02/24 06:30
Carbon Dioxide 31 mmol/L (22-30) H 10/02/24 06:30
BUN 32 mg/dl (9-20) H 10/02/24 06:30
Creatinine 1.7 mg/dL (0.7-1.3) H 10/02/24 06:30
eGFR 42.83 10/02/24 06:30
Glucose 104 mg/dl (70-99) H 10/02/24 06:30
Calcium 10.2 mg/dl (8.4-10.2) 10/02/24 06:30
Phosphorus Cancelled 09/25/24 14:18
Wbq-N-Idlbslymxqw Pept 1930 pg/ml 09/29/24 05:40
Albumin 3.1 g/dl (3.5-5.0) L 10/02/24 06:30
Physical Exam
-
Vital Signs:
Vital Signs
Temp Pulse Resp BP Pulse Ox
98.6 F 68 16 115/81 92
10/02/24 11:15 10/02/24 11:15 10/02/24 11:15 10/02/24 11:15 10/02/24 11:15
Cardiovascular:: Regular rate and rhythm
Respiratory:: Bilateral: Coarse
Lung Excursion:: Normal
Abdomen:: Nontender and Soft
Bowel Sounds:: Normal
Extremity Edema:: +2: Right: and None: Left:
[2024-10-02] MEDS: FLEET MINERAL OIL ENEMA 133 ML RECTAL (13:32)
[2024-10-02 15:45] VITALS: BP 112/72
[2024-10-02] MEDS: DULCOLAX 10 MG RECTAL (17:12)
[2024-10-02] MEDS: XARELTO 20 MG PO (17:12)
[2024-10-02 19:10] VITALS: BP 109/70
[2024-10-02 23:18] VITALS: BP 117/75
[2024-10-03 03:12] VITALS: BP 130/76
[2024-10-03] MEDS: ROXICODONE 10 MG PO (05:02)
[2024-10-03] MEDS: ZOSYN 50 IV ×4 (05:47→23:44)
[2024-10-03 06:41] VITALS: BMI 24.1
[2024-10-03 06:54] LABS: Hematocrit 37.7 % (39.0-52.0); Hemoglobin 12.5 g/dL (13.0-18.0); Mean Corp Hgb Conc. 33.2 g/dL (33.0-37.0); Mean Corpuscular Volume 100.5 fL (80.0-94.0); Nucleated Red Blood Cells % 0 % (-); Platelet Count 453 10^3/uL (130-400); Red Cell Dist. Width 12.4 % (11.5-14.5)
[2024-10-03 07:13] LABS: ALT (SGPT) 16 U/L (0-50); AST (SGOT) 30 U/L (17-59); Albumin 3.2 g/dl (3.5-5.0); Alkaline Phosphatase 70 U/L (38-126); Blood Urea Nitrogen 28 mg/dl (9-20); Calcium 10.1 mg/dl (8.4-10.2); Carbon Dioxide 32 mmol/L (22-30); Chloride 98 mmol/L (98-107); Estimated Creatinine Clearance 40 ml/min; Glucose 104 mg/dl (70-99); Potassium 3.8 mmol/L (3.5-5.1); Sodium 135 mmol/L (135-145); Total Protein 5.6 g/dl (6.3-8.2); eGFR 42.83
[2024-10-03 07:34] VITALS: BP 137/76
[2024-10-03] MEDS: SPIRIVA RESPIMAT 2.5 MCG 2 PUFF INH (08:01)
[2024-10-03] MEDS: STRIVERDI RESPIMAT 2 PUFF INH (08:01)
--- NOTE | 2024-10-03 08:24 | W.PN.HOSP.TC ---
Addendum entered and electronically signed by Isidoro Aguirre MD 10/03/24 23:06:
Attending Addendum-
I saw and evaluated the patient. I reviewed the resident�s note and agree with findings and plan as documented in the resident�s note. Sub: states has moved BM x 2 but still feels full. denies pain in right leg. No fevers chills NV. Full 12 point
ROS reviewed and negative except as documented Exam: Vitals reviewed in chart GEN-NAD heart RRR lungs clear abd soft NT ND pos BS no rebound/guarding, LE right 4th 5th toe amp bandaged, right inner thigh incision stapled CDI, 2+ pitting edema B/L
non palpable bladder
# Purulent cellulitis
# Peripheral artery disease
# Limb threatening chronic ischemia
- 09/25- POD#7-s/p right iliofemoral endarterectomy with bovine plasty angioplasty and right fem pop bypass
- 09/26- POD#6-4th/5th toe wound present with purulence s/p amputation with podiatry
- 09/30- POD#2-Right fourth and fifth partial metatarsal excisions and multiplane debridement
- podiatry leaning towards placing vac
- MRSA screen negative
- cont zosyn-day 5/7 wound cx -sensi reviewed and susceptible- to complete 7 day course, repeat wound cx- 09/30-NG
- CBC trending down
- WBAT RLE in shoe
- f/u podiatry recs
- f/u vascular recs
# Atrial flutter
- new onset, occurred in PACU
- xarelto continued - will need to be renal dosed
- hold lisinopril and cont diltiazem
- cont po lasix BID
- echo-09/30-Preserved systolic LV function, roughly estimated ejection fraction EF 60-65%.
# DAYRON
- stable, h/o atrophic kidney
- likely prerenal due to hypervolemia- cont lasix
- hold lisinopril
- renal us-Negative for hydronephrosis/obstructive uropathy. Atrophic left kidney, which was present on the prior CTA, likely secondary to renal artery stenosis.
- nephro on board- appreciate input
- repeat BMP in am
# Severe Constipation
- MOM enema x 1
- cont aggressive bowel regimen
# Hyponatremia
- resolved
- nephrology input appreciated
- cont lasix
- repeat BMP in am
# Tobacco/EtoH use
- Spiriva daily and duonebs prn for probable COPD
- nicotine patch
- addiction treatment counselor on smoking cessation
- continue thiamine, folic acid
# HTN - hold amlodipine, lisinopril
# COPD - continue ezblzbdmga-bllifme-hqbblhbpgc inhalers daily
# GERD - continue pantoprazole
DVTppx: cont xarelto renally dose
Code: full
Dispo DC to SNF- dispo planning
Time spent coordinating care, review of plan of care with resident, personally reviewed records in EMR, med rec, consults, notes, labs, radiology, d/w nursing vasc CM� 52 mins
Original Note:
Today's Communication/Plan
-
Nephorolgy plan? Renal US-kidney atrophy 2 to MAGGY
Podiatry plan?
Scheduled Senna BID, 300ml mollasses enema
continue Zosyn 06/12
Assessment / Plan
Assessment / Plan
In summary, this is a 69 yo male With a PMH of HTN, PVD, With poorly healing right fifth toe, with progressive claudication symptoms as an outpatient. He came to the ED with a chronic wound on right foot that has worsened with erythema, purulence
concerning for cellulitis.
# Purulent cellulitis s/p 4th & 5th toe amputation on 09/26
# Peripheral artery disease s/p right iliofemoral endarterectomy with bovine plasty angioplasty and right fem pop bypass
# Limb threatening chronic ischemia
- 4th/5th toe wound present with purulence s/p amputation with podiatry on 09/26
- Podiatry recs: return to OR later this week for closure vs vac, saline packing change daily
- After discussion with podiatry resume Xarelto 09/30/2024 Until the OR date available
- 09/30/2024 Right fourth and fifth partial metatarsal excisions and multiplane debridement was done
-10/01 Vascular surgery- clean wound, decided on vac therapy for healing here.
- 09/30 recommended WBAT RLE in surgical shoe
-10/03 Vascular- Physical therapy as tolerated, monitor WBC, Continue antibiotics, blood cultures pending
-WBC 16.6 ( from 18.8)- will monitor CBC and temperature
- MRSA screen negative
- cefepime was switched to Zosyn for anaerobic coverage
- 10/03 is day #5/5 of zosyn; total duration of abx is day 5 (started on 09/26)
- he is Afebrile
- continue rosuvastatin 20mg (LDL at goal) and aspirin
- incentive spirometry
- f/p vascular recs
-f/u Podiatry recs
# atrial flutter with controlled ventricular response
- new onset, occurred in PACU; was also supposed to follow-up with cardiology for cardiac ischemic workup
- TSH within normal limits; NTproBNP 900s (unsure baseline)
- per cardiology recs: continue diltiazem
- per cardiology, hold Lasix, BP was 110/70, hold lisinopril
- ECHO EF 60-65%, Probable aortic sclerosis without stenosis or regurgitation
# Hyponatremia
- could be chronic; however, downtrending this admission
- 09/30: serum Na 131
- 10/03 nephrology -Discontinue lisinopril, Maintain fluid restriction- Continue Lasix 40 mg p.o. BID, Follow BMP
- will check daily weight, BP 115/81
#Acute kidney injury
-Renal US--Negative for hydronephrosis/obstructive uropathy. Atrophic left kidney, which was present on the prior CTA, likely secondary to renal artery stenosis
-Creatinine 1.7 (before 1.7, 1.15--1), BUN 28 ( 32, 27--13)
-Order urine Studies
-Check urine sodium- calculated FeNA- 0.2%
- follow daily weight
#Rehabilitation
-OT recs- skilled rehab post acute care
#Constipation
- 10/01 Possibly opioid related- scheduled Senna Docusate 1tb BID
-10/02 Started Enema
-Ordered Abdominal Xray --Nonspecific bowel gas pattern with large amount of gas and stool within the colon.
-10/02 Started Miralax BID , Dulcolax suppository if no improvement will consider Mg citrate
-Obstruction series
# Tobacco/EtoH use
- spiriva daily and duonebs prn for probable COPD- wheezing heard on PE today continue Duonebs therapy prn
-3L of Oxygen SaO2 97%
- nicotine patches
- addiction treatment counselor on smoking cessation
- monitor for EtOH symptoms
- continue thiamine, folic acid
# Chronic issues per below
# HTN - continue amlodipine 10mg daily, lisinopril 40mg daily, furosemide 20mg daily
# COPD - continue dksfzlyvog-urxmcaf-kxjwqykslg inhalers daily
# GERD - continue pantoprazole 40mg daily
DVTppx: Xarelto 20mg PO
Code: full
Diet: Fluid restricted diet
Nursing Home home
Anticipated Discharge: > 48 hours
Subjective/Interval History
-
Date of Service: October 03, 2024
He was able to pass 1 stool yesterday he is still complaning about his abdominal pain. Tender to touch. He can pass, denies vomiting. He cant walk cause of his right foot pain.
Objective Data
-
Labs:
Laboratory Results
10/03/24
06:30
WBC 16.6 H
Hgb 12.5 L
Hct 37.7 L
Plt Count 453 H
Sodium 135
Potassium 3.8
Chloride 98
Carbon Dioxide 32 H
BUN 28 H
Creatinine 1.7 H
Glucose 104 H
Calcium 10.1
Total Bilirubin 0.5
AST 30
ALT 16
Alkaline Phosphatase 70
Vital Signs:
Vital Signs
Temp Pulse Resp BP Pulse Ox
98.1 F 80 16 137/76 97
10/03/24 07:34 10/03/24 08:03 10/03/24 08:03 10/03/24 07:34 10/03/24 08:03
I&O
10/02/24 10/03/24 10/04/24
06:59 06:59 06:59
Intake Total 1255 / 1255 850 / 850
Output Total 900 / 900 650 / 650
Balance 355 / 355 200 / 200
Review of Systems
-
History Source: Patient
Constitutional: Reports No Symptoms
EENT: Reports No Symptoms Reported
Respiratory: Reports No Symptoms
Cardiac: Reports No Symptoms
Abdomen/GI: Reports Abdominal Pain and Constipated
Genitourinary: Reports No Symptoms
Musculoskeletal: Reports Edema
Skin: Reports No Symptoms
Neuro: Reports No Symptoms
Physical Exam
-
General: Well Developed, Well Nourished and Pain
HEENT: Normocephalic and Atraumatic
Respiratory: Wheezes
Cardiac: Regular Rhythm and S1/S2
Breast: Deferred by me
GI: Tender and Distended
Genito-urinary: Deferred by me
Musculoskeletal: Edema, Right Lower Extrem
Skin: Warm
Neuro: AO x 3
Psych: Calm
[2024-10-03] MEDS: NICODERM TRANSDERMAL 14 MG TRANSDERM (09:06)
[2024-10-03] MEDS: CARDIZEM CD 180 MG PO (09:08)
[2024-10-03] MEDS: FOLVITE 1 MG PO (09:08)
[2024-10-03] MEDS: ASPIR LOW (ENTERIC COATED) 81 MG PO (09:08)
[2024-10-03] MEDS: PROTONIX 40 MG PO (09:08)
[2024-10-03] MEDS: CRESTOR 20 MG PO (09:08)
[2024-10-03] MEDS: VITAMIN B1 100 MG PO (09:08)
[2024-10-03] MEDS: SENOKOT-S 1 TABLET PO ×2 (09:08→20:07)
[2024-10-03] MEDS: LASIX 40 MG PO ×2 (09:13→16:53)
[2024-10-03] MEDS: MIRALAX 17 GRAMS PO ×2 (10:11→20:07)
[2024-10-03] MEDS: DULCOLAX 10 MG RECTAL (10:11)
--- NOTE | 2024-10-03 11:07 | W.PN.VS ---
Addendum entered and electronically signed by Devan Michaels MD 10/03/24 16:34:
Seen and examined earlier today with SAUSAGE COOKER. Agree with findings as noted below. Patient without significant complaints. Continues serous drainage from superficial blisters in right thigh and perhaps from saphenectomy incision. Groin and distal
medial thigh incisions appear dry. Incisions are all intact with no signs of infection. Foot is warm with palpable DP pulse. Plan/as discussed and noted below.
Original Note:
Today's Communication / Plan
-
Patient seen and examined at bedside with Dr. Devan Michaels, below plan reviewed with attending.
Assessment/Plan
-
Assessment: 69-year-old male s/p Extensive right iliofemoral endarterectomy (distal external iliac artery, common femoral artery, profunda femoris artery, origin of SFA) with bovine pericardial patch angioplasty and profundoplasty. Right femoral to
vgysl-san-zdae popliteal artery bypass with 8 mm ringed [place] Propaten graft.
Plan:
Physical therapy as tolerated
monitor WBC, trending down today
Defer to podiatry for weightbearing status/shoe, plan for wound vac to open amputation site at foot, agree with plan
Incentive spirometry
Encourage smoking cessation education
Xarelto
Continue antibiotics, blood cultures pending
Follow up placed in discharge instructions, please call with questions or concerns
Subjective Data
-
Date of Service: October 03, 2024
Patient seen and examined at bedside, offers no complaints. Denies nausea, vomiting, fever, and chills.
Objective Data
-
Vital Signs
Temp Pulse Resp BP Pulse Ox
98.1 F 80 16 137/76 97
10/03/24 07:34 10/03/24 08:03 10/03/24 08:03 10/03/24 07:34 10/03/24 08:03
Intake and Output
10/02/24 10/03/24 10/04/24
06:59 06:59 06:59
Intake Total 1255 / 1255 850 / 850
Output Total 900 / 900 650 / 650
Balance 355 / 355 200 / 200
Intake:
Oral fluids 1080 / 1080 600 / 600
IV fluids (Total) 50 / 50
IV piggybacks 150 / 150 200 / 200
Output:
Urine, Voided 900 / 900 650 / 650
Other:
Number of approximated MODERATE 1 1
amounts of urine
How many times incontinent 1
SATURATED amount urine
Lab Results
10/03/24 06:30
10/03/24 06:30
Calcium 10.1 mg/dl (8.4-10.2) 10/03/24 06:30
Phosphorus Cancelled 09/25/24 14:18
Magnesium 1.7 mg/dl (1.6-2.3) 09/25/24 19:27
Total Bilirubin 0.5 mg/dl (0.2-1.3) 10/03/24 06:30
AST 30 U/L (17-59) 10/03/24 06:30
ALT 16 U/L (0-50) 10/03/24 06:30
Alkaline Phosphatase 70 U/L (38-126) 10/03/24 06:30
Total Protein 5.6 g/dl (6.3-8.2) L 10/03/24 06:30
Albumin 3.2 g/dl (3.5-5.0) L 10/03/24 06:30
Physical Exam
-
Resting in bed comfortably
No tachycardia
No dyspnea on room air
ABD soft, nontender, nondistended
Right lower extremity surgical sites with miguel angel wrap clean, dry, and intact. Serous drainage from blistered skin.
Right PT and AT signal, right wrapped by podiatry dressing dry
[2024-10-03 11:48] VITALS: BP 124/78
--- NOTE | 2024-10-03 11:49 | WOUNDNOTE ---
[facility] RN NOTE: Awaiting delivery of vac. Called and sent email to Johana at [facility] to order more vacs and spoke to Daria in [facility]. Daria to contact this leader writer when vac is available. TT Dr. Cat and resident Dr. Low and plan is for saline
moistened gauze dressing daily until arrival of vac. Also confirmed that next vac change can be on 10/07. Plan is for SNF at discharge. RIOS Anderson made aware of plan. Will continue to follow with patient for vac placement.
--- NOTE | 2024-10-03 12:37 | W.PN.NEPH.PH ---
Today's Communication / Plan
-
Okay with discharge and outpatient follow-up from renal standpoint
Assessment/Plan
-
69-year-old male presentation with RLE pain, concern for limb ischemia with PAD s/p urgent extensive right iliofemoral endarterectomy with bovine patch angioplasty and profundoplasty and right femoral to irxni-cxs-liwo popliteal artery bypass
09/25/2024
Other medical history includes atrial flutter, new diagnosis of unclear duration, asymptomatic HTN HLD COPD GERDOngoing tobacco use Daily ETOH use
Renal consultation for hyponatremia decreasing since admission down to 127 with a urine sodium of 6 and a serum osmolality of 281
Impression.
Hyponatremia
DAYRON
PAD status post intervention above
A-flutter
Hypertension
Tobacco use
Moderate alcohol use
Plan
Lasix 40 mg p.o. BID
Follow BMP
Discontinue lisinopril
Maintain fluid restriction
Creatinine remains at 1.7 still elevated.
If getting close to discharge would be okay with discharge and outpatient follow-up
-
-
Date of Service: October 03, 2024
CC / HPI / ROS
-
Chief Complaint:
Hyponatremia
History of Present Illness:
Sodium up to 131
DAYRON/Cr (baseline creatinine 0.9�1.1) up to 1.6, 1.7
Right lower extremity edema
Review of Systems:
No chest pain or shortness of breath
Labs
-
Labs:
WBC 16.6 10^3/uL (4.8-10.8) H 10/03/24 06:30
RBC 3.75 10^6/uL (4.70-6.10) L 10/03/24 06:30
Hgb 12.5 g/dL (13.0-18.0) L 10/03/24 06:30
Hct 37.7 % (39.0-52.0) L 10/03/24 06:30
Plt Count 453 10^3/uL (130-400) H 10/03/24 06:30
Sodium 135 mmol/L (135-145) 10/03/24 06:30
Potassium 3.8 mmol/L (3.5-5.1) 10/03/24 06:30
Chloride 98 mmol/L (98-107) 10/03/24 06:30
Carbon Dioxide 32 mmol/L (22-30) H 10/03/24 06:30
BUN 28 mg/dl (9-20) H 10/03/24 06:30
Creatinine 1.7 mg/dL (0.7-1.3) H 10/03/24 06:30
eGFR 42.83 10/03/24 06:30
Glucose 104 mg/dl (70-99) H 10/03/24 06:30
Calcium 10.1 mg/dl (8.4-10.2) 10/03/24 06:30
Phosphorus Cancelled 09/25/24 14:18
Cse-V-Dwdehnzuhop Pept 1930 pg/ml 09/29/24 05:40
Albumin 3.2 g/dl (3.5-5.0) L 10/03/24 06:30
Physical Exam
-
Vital Signs:
Vital Signs
Temp Pulse Resp BP Pulse Ox
98.2 F 82 18 124/78 95
10/03/24 11:48 10/03/24 11:48 10/03/24 11:48 10/03/24 11:48 10/03/24 11:48
Cardiovascular:: Regular rate and rhythm
Respiratory:: Bilateral: Coarse
Lung Excursion:: Normal
Abdomen:: Nontender and Soft
Bowel Sounds:: Normal
Extremity Edema:: +2: Right: and None: Left:
[2024-10-03] MEDS: XARELTO 15 MG PO (18:09)
[2024-10-03 23:00] VITALS: BP 124/77
[2024-10-04] MEDS: ZOSYN 50 IV ×4 (05:49→23:59)
[2024-10-04 06:00] VITALS: BMI 23.8
[2024-10-04] MEDS: SPIRIVA RESPIMAT 2.5 MCG 2 PUFF INH (07:30)
[2024-10-04] MEDS: STRIVERDI RESPIMAT 2 PUFF INH (07:30)
[2024-10-04] MEDS: ROXICODONE 10 MG PO ×2 (07:47→13:26)
[2024-10-04] MEDS: CRESTOR 20 MG PO (07:49)
[2024-10-04 07:50] VITALS: BP 130/78
[2024-10-04] MEDS: VITAMIN B1 100 MG PO (07:50)
[2024-10-04] MEDS: ASPIR LOW (ENTERIC COATED) 81 MG PO (07:50)
[2024-10-04] MEDS: SENOKOT-S 1 TABLET PO ×2 (07:50→20:55)
[2024-10-04] MEDS: NICODERM TRANSDERMAL 14 MG TRANSDERM (07:50)
[2024-10-04] MEDS: FOLVITE 1 MG PO (07:50)
[2024-10-04] MEDS: PROTONIX 40 MG PO (07:50)
[2024-10-04] MEDS: MIRALAX 17 GRAMS PO ×2 (07:52→20:55)
[2024-10-04] MEDS: CARDIZEM CD 180 MG PO (07:52)
[2024-10-04] MEDS: LASIX 40 MG PO ×2 (07:55→16:48)
--- NOTE | 2024-10-04 08:00 | W.PN.HOSP.TC ---
Addendum entered and electronically signed by Isidoro Aguirre MD 10/04/24 21:46:
Attending Addendum-
I saw and evaluated the patient. I reviewed the resident�s note and agree with findings and plan as documented in the resident�s note. Sub: denies pain in right leg. No fevers chills NV. feels weak. Full 12 point ROS reviewed and negative except as
documented Exam: Vitals reviewed in chart GEN-NAD heart RRR lungs clear abd soft NT ND pos BS no rebound/guarding, LE right 4th 5th toe amp bandaged with wound vac in place, right inner thigh incision stapled CDI, 2+ pitting edema B/L non
palpable bladder
# Purulent cellulitis
# Peripheral artery disease
# Limb threatening chronic ischemia
- 09/25- POD#8-s/p right iliofemoral endarterectomy with bovine plasty angioplasty and right fem pop bypass
- 09/26- POD#7-4th/5th toe wound present with purulence s/p amputation with podiatry
- 09/30- POD#3-Right fourth and fifth partial metatarsal excisions and multiplane debridement
- 10/04- podiatry placed wound vac
- MRSA screen negative
- cont zosyn-day 6/7 wound cx -sensi reviewed and susceptible-repeat wound cx- 09/30-NG
- CBC trending down
- WBAT RLE in shoe
- f/u podiatry recs
- f/u vascular recs
# Atrial flutter
- new onset, occurred in PACU
- xarelto continued - will need to be renal dosed
- hold lisinopril and cont diltiazem
- cont po lasix BID
- echo-09/30-Preserved systolic LV function, roughly estimated ejection fraction EF 60-65%.
# DAYRON
- resolving, h/o atrophic kidney/MAGGY
- likely prerenal due to hypervolemia- cont lasix
- hold lisinopril
- renal us-Negative for hydronephrosis/obstructive uropathy. Atrophic left kidney, which was present on the prior CTA, likely secondary to renal artery stenosis.
- nephro on board- appreciate input
- repeat BMP in am
# Severe Constipation
- repeat enema x 1
- cont aggressive bowel regimen
# Hyponatremia
- resolved
- nephrology input appreciated
- cont lasix
- repeat BMP in am
# Tobacco/EtoH use
- Spiriva daily and duonebs prn for probable COPD
- nicotine patch
- summer counselor on smoking cessation
- continue thiamine, folic acid
# HTN - hold amlodipine, lisinopril
# COPD - continue ghykunyjhc-bldvlka-tenobwnpgt inhalers daily
# GERD - continue pantoprazole
DVTppx: cont xarelto renally dose
Code: full
Dispo DC to SNF (from [facility])- patient medically stable for DC awaiting auth d/w CM
Time spent coordinating care, review of plan of care with resident, personally reviewed records in EMR, med rec, consults, notes, labs, radiology, d/w nursing vasc pods CM� 51 mins
Original Note:
Today's Communication/Plan
-
Mineral oil enema
channel marketing manager- SNF for dicharge
Assessment / Plan
Assessment / Plan
In summary, this is a 69 yo male With a PMH of HTN, PVD, With poorly healing right fifth toe, with progressive claudication symptoms as an outpatient. He came to the ED with a chronic wound on right foot that has worsened with erythema, purulence
concerning for cellulitis.
# Purulent cellulitis s/p 4th & 5th toe amputation on 09/26
# Peripheral artery disease s/p right iliofemoral endarterectomy with bovine plasty angioplasty and right fem pop bypass
# Limb threatening chronic ischemia
- 4th/5th toe wound present with purulence s/p amputation with podiatry on 09/26
- Podiatry recs: return to OR later this week for closure vs vac, saline packing change daily
- After discussion with podiatry resume Xarelto 09/30/2024 Until the OR date available
- 09/30/2024 Right fourth and fifth partial metatarsal excisions and multiplane debridement was done
-10/01 Vascular surgery- clean wound, decided on vac therapy for healing here.
- 09/30 recommended WBAT RLE in surgical shoe
-10/03 Vascular- Physical therapy as tolerated, monitor WBC, Continue antibiotics, blood culture no growth
-10/04 Wound vac placed- next vac change on 10/08
-will discharge once SNF has available bed, caser up is working on it.
-WBC 15.9 downtrending will monitor CBC and temperature
- MRSA screen negative
- cefepime was switched to Zosyn for anaerobic coverage
- 10/03 is day #5/5 of zosyn; total duration of abx is day 5 (started on 09/26)
- he is Afebrile
- continue rosuvastatin 20mg (LDL at goal) and aspirin
- incentive spirometry
- f/p vascular recs
-f/u Podiatry recs
# atrial flutter with controlled ventricular response
- new onset, occurred in PACU; was also supposed to follow-up with cardiology for cardiac ischemic workup
- TSH within normal limits; NTproBNP 900s (unsure baseline)
- per cardiology recs: continue diltiazem
- per cardiology, hold Lasix, BP was 110/70, hold lisinopril
- ECHO EF 60-65%, Probable aortic sclerosis without stenosis or regurgitation
# Hyponatremia
- could be chronic; however, downtrending this admission
- 09/30: serum Na 131
- 10/03 nephrology -Discontinue lisinopril, Maintain fluid restriction- Continue Lasix 40 mg p.o. BID, Follow BMP
- will check daily weight
#Acute kidney injury
-Renal US--Negative for hydronephrosis/obstructive uropathy. Atrophic left kidney, which was present on the prior CTA, likely secondary to renal artery stenosis
-Creatinine downtrending 1.5
-Order urine Studies
-Check urine sodium- calculated FeNA- 0.2%
- follow daily weight
#Rehabilitation
-OT recs- skilled rehab post acute care
#Constipation
- 10/01 Possibly opioid related- scheduled Senna Docusate 1tb BID
-10/02 Started Enema
-Abdominal Xray --Nonspecific bowel gas pattern with large amount of gas and stool within the colon.
-continue aggressive bm management
-Started Miralax BID , Dulcolax suppository, Milk molassess enema, mineral oil enema
-Obstruction series
# Tobacco/EtoH use
- spiriva daily and duonebs prn for probable COPD- wheezing heard on PE today continue Duonebs therapy prn
-3L of Oxygen SaO2 97%
- nicotine patches
- summer counselor on smoking cessation
- monitor for EtOH symptoms
- continue thiamine, folic acid
# Chronic issues per below
# HTN - continue amlodipine 10mg daily, lisinopril 40mg daily, furosemide 20mg daily
# COPD - continue rbrjfwwdvk-odedbbm-dpwboxcmfg inhalers daily
# GERD - continue pantoprazole 40mg daily
DVTppx: Xarelto 20mg PO
Code: full
Diet: Fluid restricted diet
Anticipated Discharge: 24 - 48 hours
Subjective/Interval History
-
Date of Service: October 04, 2024
He was lying in the bed. He mentions being able to pass 2 bowel movements yesterday. He still has a little bit abdominal pain on his LLQ. He also has some right leg pain from toe to thigh.
Objective Data
-
Labs:
Laboratory Results
10/04/24
06:00
WBC Pending
Hgb Pending
Hct Pending
Plt Count Pending
Sodium Pending
Potassium Pending
Chloride Pending
Carbon Dioxide Pending
BUN Pending
Creatinine Pending
Glucose Pending
Calcium Pending
Total Bilirubin Pending
AST Pending
ALT Pending
Alkaline Phosphatase Pending
Vital Signs:
Vital Signs
Temp Pulse Resp BP Pulse Ox
98.2 F 85 18 130/78 96
10/04/24 07:50 10/04/24 07:52 10/04/24 07:50 10/04/24 07:52 10/04/24 07:50
I&O
10/03/24 10/04/24 10/05/24
06:59 06:59 06:59
Intake Total 850 / 850 770 / 770
Output Total 650 / 650 1675 / 1675
Balance 200 / 200 -905 / -905
Review of Systems
-
History Source: Patient
Constitutional: Reports No Symptoms
EENT: Reports No Symptoms Reported
Respiratory: Reports No Symptoms (On [place] oxygen )
Cardiac: Reports No Symptoms
Abdomen/GI: Reports Abdominal Pain and Constipated
Breast: Reports No Symptoms
Genitourinary: Reports No Symptoms
Musculoskeletal: Reports Edema
Skin: Reports No Symptoms
Neuro: Reports No Symptoms
Endocrine: Reports No Symptoms
Physical Exam
-
General: Well Developed and Well Nourished
HEENT: Normocephalic and Atraumatic
Respiratory: Wheezes
Cardiac: Regular Rhythm and S1/S2
Breast: Deferred by me
GI: Tender and Distended
Rectal: Deferred by Provider
Genito-urinary: Deferred by me
Musculoskeletal: Edema, Right Lower Extrem
Skin: Warm and Dry
Neuro: AO x 3
[2024-10-04 08:48] LABS: Hematocrit 37.8 % (39.0-52.0); Hemoglobin 12.8 g/dL (13.0-18.0); Mean Corp Hgb Conc. 33.9 g/dL (33.0-37.0); Mean Corpuscular Volume 100.5 fL (80.0-94.0); Nucleated Red Blood Cells % 0 % (-); Platelet Count 461 10^3/uL (130-400); Red Cell Dist. Width 12.3 % (11.5-14.5)
[2024-10-04 09:01] LABS: ALT (SGPT) 17 U/L (0-50); AST (SGOT) 29 U/L (17-59); Albumin 3.3 g/dl (3.5-5.0); Alkaline Phosphatase 72 U/L (38-126); Blood Urea Nitrogen 26 mg/dl (9-20); Calcium 9.9 mg/dl (8.4-10.2); Carbon Dioxide 33 mmol/L (22-30); Chloride 96 mmol/L (98-107); Estimated Creatinine Clearance 46 ml/min; Glucose 108 mg/dl (70-99); Potassium 3.4 mmol/L (3.5-5.1); Sodium 134 mmol/L (135-145); Total Protein 5.7 g/dl (6.3-8.2); eGFR 49.77
[2024-10-04] MEDS: KCL 40 MEQ PO (09:55)
--- NOTE | 2024-10-04 10:58 | CM ---
Addendum entered by Marium Vu RN 10/04/24 16:02:
Messaged [facility] that patient is ready for discharge. Awaiting response. Left voice message for [facility] ([phone]). Auth is required once bed found.
Original Note:
Reviewed the chart notes and spoke with the patient at the bedside. Wound vac in place. The patient is agreeable to [facility]. Auth will be required. CM continues to be available to patient/family and is monitoring medical plan for needs
at discharge.
Plan: Discharge to SNF once medically stable, bed secured, and auth obtained.
--- NOTE | 2024-10-04 11:04 | W.PN.NEPH.PH ---
Today's Communication / Plan
-
Follow BMP
Maintain Lasix and fluid restriction
Assessment/Plan
-
69-year-old male presentation with RLE pain, concern for limb ischemia with PAD s/p urgent extensive right iliofemoral endarterectomy with bovine patch angioplasty and profundoplasty and right femoral to lriek-cuk-vhmj popliteal artery bypass
09/25/2024
Other medical history includes atrial flutter, new diagnosis of unclear duration, asymptomatic HTN HLD COPD GERDOngoing tobacco use Daily ETOH use
Renal consultation for hyponatremia decreasing since admission down to 127 with a urine sodium of 6 and a serum osmolality of 281
Impression.
Hyponatremia
DAYRON
PAD status post intervention above
A-flutter
Hypertension
Tobacco use
Moderate alcohol use
Plan
Creatinine improved to 1.5
Sodium at 134, maintain fluid restrict
Lasix 40 mg p.o. BID to continue
Follow BMP
Off lisinopril until creatinine cliff
Maintain fluid restriction
Nonoliguric
If getting close to discharge would be okay with discharge and outpatient follow-up
-
-
Date of Service: October 04, 2024
CC / HPI / ROS
-
Chief Complaint:
Hyponatremia
History of Present Illness:
Sodium up to 134
DAYRON/Cr (baseline creatinine 0.9�1.1) down to 1.5
Right lower extremity edema
Review of Systems:
No chest pain or shortness of breath
Nonoliguric
Labs
-
Labs:
WBC 15.9 10^3/uL (4.8-10.8) H 10/04/24 08:22
RBC 3.76 10^6/uL (4.70-6.10) L 10/04/24 08:22
Hgb 12.8 g/dL (13.0-18.0) L 10/04/24 08:22
Hct 37.8 % (39.0-52.0) L 10/04/24 08:22
Plt Count 461 10^3/uL (130-400) H 10/04/24 08:22
Sodium 134 mmol/L (135-145) L 10/04/24 08:22
Potassium 3.4 mmol/L (3.5-5.1) L 10/04/24 08:22
Chloride 96 mmol/L (98-107) L 10/04/24 08:22
Carbon Dioxide 33 mmol/L (22-30) H 10/04/24 08:22
BUN 26 mg/dl (9-20) H 10/04/24 08:22
Creatinine 1.5 mg/dL (0.7-1.3) H 10/04/24 08:22
eGFR 49.77 10/04/24 08:22
Glucose 108 mg/dl (70-99) H 10/04/24 08:22
Calcium 9.9 mg/dl (8.4-10.2) 10/04/24 08:22
Phosphorus Cancelled 09/25/24 14:18
Ako-U-Bzhaudlnpjv Pept 1930 pg/ml 09/29/24 05:40
Albumin 3.3 g/dl (3.5-5.0) L 10/04/24 08:22
Physical Exam
-
Vital Signs:
Vital Signs
Temp Pulse Resp BP Pulse Ox
98.2 F 85 18 130/78 96
10/04/24 07:50 10/04/24 07:52 10/04/24 07:50 10/04/24 07:52 10/04/24 07:50
Cardiovascular:: Regular rate and rhythm
Respiratory:: Bilateral: Coarse
Lung Excursion:: Normal
Abdomen:: Nontender and Soft
Bowel Sounds:: Normal
Extremity Edema:: +2: Right: and None: Left:
[2024-10-04 11:40] VITALS: BP 125/85
--- NOTE | 2024-10-04 13:10 | WOUNDNOTE ---
[facility] RN NOTE: Reviewed chart and met with patient. Patient is s/p R 05/11 MT head resection and vac ordered to be placed on open incision by Dr. Moore. Patient medicated for pain prior to assessment and wound vac placement. Please see worklist
for measurements and details. The distal portion of the wound had gauze secured in place by suture. This suture and those distal were covered with 2x2 and secured with transparent dressing. An Eakins seal was placed directly around the periwound to
even out edges of wound. Patient tolerated vac placement well. Heels and sacrum intact. Silicone foam dressing placed to sacrum. Patient demonstrated ability to turn self in bed and he has an air cushion to chair. Patient reports getting up daily.
This automotive service writer encouraged patient to continue moving, turning and off-load sacrum and to keep heels off-loaded when in bed. Appetite is good. He is on a [employer] Accumax. TT Dr. Low with updated and confirmed that next vac change will be on
Sunday 10/08.
--- NOTE | 2024-10-04 13:38 | WOUNDNOTE ---
RIGHT TOE AMP SITE
[2024-10-04 14:36] VITALS: BP 155/71; PULSE 75; O2SAT 95
[2024-10-04 14:37] VITALS: BP 155/71; PULSE 75; O2SAT 96
[2024-10-04] MEDS: FLEET MINERAL OIL ENEMA 133 ML RECTAL (15:22)
[2024-10-04 15:45] VITALS: BP 107/64
[2024-10-04] MEDS: XARELTO 15 MG PO (17:35)
[2024-10-04 23:00] VITALS: BP 131/89
[2024-10-05] MEDS: ZOSYN 50 IV ×3 (05:44→19:11)
[2024-10-05 06:00] VITALS: BMI 23.7
[2024-10-05] MEDS: ROXICODONE 10 MG PO ×3 (06:07→20:22)
[2024-10-05 07:15] VITALS: BP 120/78
[2024-10-05 07:43] LABS: Hematocrit 36.1 % (39.0-52.0); Hemoglobin 12.1 g/dL (13.0-18.0); Mean Corp Hgb Conc. 33.5 g/dL (33.0-37.0); Mean Corpuscular Volume 98.6 fL (80.0-94.0); Platelet Count 432 10^3/uL (130-400); Red Cell Dist. Width 12.3 % (11.5-14.5)
--- NOTE | 2024-10-05 07:46 | W.PN.HOSP.TC ---
Addendum entered and electronically signed by Myrna López MD 10/05/24 17:34:
I saw and evaluated the patient independently. I reviewed the resident�s note and agree with findings and plan as documented by Dr. Prakash.
GENERAL: well developed, well nourished, in no apparent distress
HEENT: NC/AT--O2 NC in place
HEART: regular rate and rhythm, +S1, +S2
LUNGS : clear to auscultation bilaterally
ABDOM: soft, nontender, nondistended, + bowel sounds
EXT: no cyanosis, clubbing, or edema--right foot with wound vac and wrap
Purulent cellulitis s/p 4th & 5th toe amputation on 09/26/24 likely due to Peripheral artery disease s/p right iliofemoral endarterectomy with bovine plasty angioplasty and right fem pop bypass and Limb threatening chronic ischemia --apprec podiatry
and vascular--wound vac--resume Xarelto 09/30/2024 Until the OR date available later this week
-09/30/2024 Right fourth and fifth partial metatarsal excisions and multiplane debridement was done
-10/01 Vascular surgery- clean wound, decided on vac therapy for healing here.
-09/30 recommended WBAT RLE in surgical shoe
-10/03 Vascular- Physical therapy as tolerated, monitor WBC, Continue antibiotics, blood culture no growth
-10/04 Wound vac placed- next vac change on 10/08
-will discharge once SNF has available bed, case therapist is working on it- no available bed
-10/04- per cousin's request home care provider for discharge but not safe d/c plan
Leukocytosis-- MRSA screen negative- cefepime was switched to Zosyn for anaerobic coverage- 10/03 is day #5/5 of zosyn; total duration of abx is day 5 (started on 09/26)
atrial flutter-- new onset, occurred in PACU; was also supposed to follow-up with cardiology for cardiac ischemic workup--TSH WNL--apprec cards--cont diltiazem--lasix--Xarelto- ECHO EF 60-65%, Probable aortic sclerosis without stenosis or
regurgitation
Hyponatremia- could be chronic; however, downtrending this admission- resolved-- 10/03 nephrology -Discontinue lisinopril, Maintain fluid restriction- Continue Lasix 40 mg p.o. BID, Follow BMP
Acute kidney injury--possibly due to renal artery stenosis--creat improving--lasix BID, fluid restrict
Rehabilitation--skilled rehab post acute care
Constipation --possibly related to opioids--cont bowel regimen, enemas as needed
Tobacco/EtoH use--no signs of ETOH withdrawal--cont thiamine and folate
COPD- continue Duonebs therapy prn- spiriva daily --wean O2 to off if able--pt states he doesn't wear at home
Essential HTN - continue amlodipine 10mg daily, lisinopril 40mg daily, furosemide 20mg daily
GERD - continue pantoprazole 40mg daily
DVT proph --continue Xarelto 15 mg PO renally dose
Code status-- full
Original Note:
Today's Communication/Plan
-
auto leasing manager discharge plans
Assessment / Plan
Assessment / Plan
In summary, this is a 69 yo male With a PMH of HTN, PVD, With poorly healing right fifth toe, with progressive claudication symptoms as an outpatient. He came to the ED with a chronic wound on right foot that has worsened with erythema, purulence
concerning for cellulitis.
# Purulent cellulitis s/p 4th & 5th toe amputation on 09/26
# Peripheral artery disease s/p right iliofemoral endarterectomy with bovine plasty angioplasty and right fem pop bypass
# Limb threatening chronic ischemia
- 4th/5th toe wound present with purulence s/p amputation with podiatry on 09/26
- Podiatry recs: return to OR later this week for closure vs vac, saline packing change daily
- After discussion with podiatry resume Xarelto 09/30/2024 Until the OR date available
- 09/30/2024 Right fourth and fifth partial metatarsal excisions and multiplane debridement was done
-10/01 Vascular surgery- clean wound, decided on vac therapy for healing here.
- 09/30 recommended WBAT RLE in surgical shoe
-10/03 Vascular- Physical therapy as tolerated, monitor WBC, Continue antibiotics, blood culture no growth
-10/04 Wound vac placed- next vac change on 10/08
-will discharge once SNF has available bed, case therapist is working on it- no available bed
-10/04- per cousin's request home care provider for discharge
-WBC downtrending will monitor CBC and temperature
- MRSA screen negative
- cefepime was switched to Zosyn for anaerobic coverage
- 10/03 is day #5/5 of zosyn; total duration of abx is day 5 (started on 09/26)
- he is Afebrile
- continue rosuvastatin 20mg (LDL at goal) and aspirin
- incentive spirometry
- f/p vascular recs
-f/u Podiatry recs
# atrial flutter
- new onset, occurred in PACU; was also supposed to follow-up with cardiology for cardiac ischemic workup
- TSH within normal limits; NTproBNP 900s (unsure baseline)
- per cardiology recs: continue diltiazem
- Continue lasix BID, hold lisinopril
- ECHO EF 60-65%, Probable aortic sclerosis without stenosis or regurgitation
-Xarelto cont renal dosed 15mg
# Hyponatremia
- could be chronic; however, downtrending this admission- resolved
- 10/03 nephrology -Discontinue lisinopril, Maintain fluid restriction- Continue Lasix 40 mg p.o. BID, Follow BMP
- will check daily weight
#Acute kidney injury
-Renal US--Negative for hydronephrosis/obstructive uropathy. Atrophic left kidney, which was present on the prior CTA, likely secondary to renal artery stenosis
-Creatinine downtrending 1.5
-Order urine Studies
-Check urine sodium- calculated FeNA- 0.2%
- follow daily weight
#Rehabilitation
-OT recs- skilled rehab post acute care
#Constipation
- 10/01 Possibly opioid related- scheduled Senna Docusate 1tb BID
-10/02 Started Enema
-Abdominal Xray --Nonspecific bowel gas pattern with large amount of gas and stool within the colon.
-continue aggressive bm management
-Started Miralax BID , Dulcolax suppository, Milk molassess enema, mineral oil enema
-Obstruction series
# Tobacco/EtoH use
- spiriva daily and duonebs prn for probable COPD- wheezing heard on PE today continue Duonebs therapy prn
-3L of Oxygen SaO2 97%
- nicotine patches
- certified travel counselor on smoking cessation
- monitor for EtOH symptoms
- continue thiamine, folic acid
# Chronic issues per below
# HTN - continue amlodipine 10mg daily, lisinopril 40mg daily, furosemide 20mg daily
# COPD - continue knhlbibgla-dfjtilz-wmmndymzbn inhalers daily
# GERD - continue pantoprazole 40mg daily
DVTppx: continue Xarelto 15 mg PO renally dose
Code: full
Diet: Fluid restricted diet
Dispo DC to home care provider per cousin's request- awaiting auth from
Anticipated Discharge: 24 - 48 hours
Subjective/Interval History
-
Date of Service: October 05, 2024
He is lying on his bed. Does not have any complaints today. He had some bm denies abd pain.
Objective Data
-
Labs:
Laboratory Results
10/05/24
06:40
WBC 14.3 H
Hgb 12.1 L
Hct 36.1 L
Plt Count 432 H
Sodium Pending
Potassium Pending
Chloride Pending
Carbon Dioxide Pending
BUN Pending
Creatinine Pending
Glucose Pending
Calcium Pending
Vital Signs:
Vital Signs
Temp Pulse Resp BP Pulse Ox
98.0 F 83 16 120/78 96
10/05/24 07:15 10/05/24 07:15 10/05/24 07:15 10/05/24 07:15 10/05/24 07:15
I&O
10/04/24 10/05/24 10/06/24
06:59 06:59 06:59
Intake Total 770 / 770 960 / 960
Output Total 1675 / 1675 1500 / 1500
Balance -905 / -905 -540 / -540
Review of Systems
-
History Source: Patient
Constitutional: Reports No Symptoms
EENT: Reports No Symptoms Reported
Respiratory: Reports No Symptoms (On [place] oxygen )
Cardiac: Reports No Symptoms
Abdomen/GI: Reports No Symptoms
Breast: Reports No Symptoms
Genitourinary: Reports No Symptoms
Musculoskeletal: Reports Edema
Skin: Reports No Symptoms
Neuro: Reports No Symptoms
Endocrine: Reports No Symptoms
Physical Exam
-
General: Well Developed and Well Nourished
HEENT: Normocephalic and Atraumatic
Respiratory: Wheezes
Cardiac: Regular Rhythm and S1/S2
Breast: Deferred by me
GI: Soft and Nontender
Rectal: Deferred by Provider
Genito-urinary: Deferred by me
Musculoskeletal: Edema, Right Lower Extrem
Skin: Warm and Dry
Neuro: AO x 3
[2024-10-05] MEDS: NICODERM TRANSDERMAL 14 MG TRANSDERM (08:00)
[2024-10-05] MEDS: MIRALAX 17 GRAMS PO ×2 (08:00→20:22)
[2024-10-05] MEDS: ASPIR LOW (ENTERIC COATED) 81 MG PO (08:05)
[2024-10-05] MEDS: CRESTOR 20 MG PO (08:05)
[2024-10-05] MEDS: CARDIZEM CD 180 MG PO (08:05)
[2024-10-05] MEDS: SENOKOT-S 1 TABLET PO ×2 (08:06→20:22)
[2024-10-05] MEDS: PROTONIX 40 MG PO (08:06)
[2024-10-05] MEDS: VITAMIN B1 100 MG PO (08:07)
[2024-10-05] MEDS: STRIVERDI RESPIMAT 2 PUFF INH (08:07)
[2024-10-05] MEDS: LASIX 40 MG PO ×2 (08:07→19:11)
[2024-10-05] MEDS: FOLVITE 1 MG PO (08:07)
[2024-10-05] MEDS: SPIRIVA RESPIMAT 2.5 MCG 2 PUFF INH (08:07)
[2024-10-05 08:18] LABS: Blood Urea Nitrogen 23 mg/dl (9-20); Calcium 9.5 mg/dl (8.4-10.2); Carbon Dioxide 32 mmol/L (22-30); Chloride 98 mmol/L (98-107); Estimated Creatinine Clearance 46 ml/min; Glucose 91 mg/dl (70-99); Potassium 3.6 mmol/L (3.5-5.1); Sodium 135 mmol/L (135-145); eGFR 49.77
--- NOTE | 2024-10-05 10:25 | W.PN.NEPH.PH ---
Today's Communication / Plan
-
Fluid restriction loosened to 48 ounces
Follow BMP
Maintain twice daily lasix
Assessment/Plan
-
69-year-old male presentation with RLE pain, concern for limb ischemia with PAD s/p urgent extensive right iliofemoral endarterectomy with bovine patch angioplasty and profundoplasty and right femoral to komqw-ysy-ujxp popliteal artery bypass
09/25/2024
Other medical history includes atrial flutter, new diagnosis of unclear duration, asymptomatic HTN HLD COPD GERDOngoing tobacco use Daily ETOH use
Renal consultation for hyponatremia decreasing since admission down to 127 with a urine sodium of 6 and a serum osmolality of 281
Impression.
Hyponatremia
DAYRON
PAD status post intervention above
A-flutter
Hypertension
Tobacco use
Moderate alcohol use
Plan
Creatinine improved to 1.5
Sodium at 135, maintain fluid restrict
Lasix 40 mg p.o. BID to continue
Follow BMP
Off lisinopril until creatinine cliff
Nonoliguric
If getting close to discharge would be okay with discharge and outpatient follow-up
-
-
Date of Service: October 05, 2024
CC / HPI / ROS
-
Chief Complaint:
Hyponatremia
History of Present Illness:
Sodium up to 135
DAYRON/Cr (baseline creatinine 0.9�1.1) down to 1.5,but unchanged
Hemodynamically stable
Right lower extremity edema
Review of Systems:
No chest pain or shortness of breath
Nonoliguric
Labs
-
Labs:
WBC 14.3 10^3/uL (4.8-10.8) H 10/05/24 06:40
RBC 3.66 10^6/uL (4.70-6.10) L 10/05/24 06:40
Hgb 12.1 g/dL (13.0-18.0) L 10/05/24 06:40
Hct 36.1 % (39.0-52.0) L 10/05/24 06:40
Plt Count 432 10^3/uL (130-400) H 10/05/24 06:40
Sodium 135 mmol/L (135-145) 10/05/24 06:40
Potassium 3.6 mmol/L (3.5-5.1) 10/05/24 06:40
Chloride 98 mmol/L (98-107) 10/05/24 06:40
Carbon Dioxide 32 mmol/L (22-30) H 10/05/24 06:40
BUN 23 mg/dl (9-20) H 10/05/24 06:40
Creatinine 1.5 mg/dL (0.7-1.3) H 10/05/24 06:40
eGFR 49.77 10/05/24 06:40
Glucose 91 mg/dl (70-99) 10/05/24 06:40
Calcium 9.5 mg/dl (8.4-10.2) 10/05/24 06:40
Phosphorus Cancelled 09/25/24 14:18
Cyt-Q-Treocixshxf Pept 1930 pg/ml 09/29/24 05:40
Albumin 3.3 g/dl (3.5-5.0) L 10/04/24 08:22
Physical Exam
-
Vital Signs:
Vital Signs
Temp Pulse Resp BP Pulse Ox
98.0 F 87 16 120/78 97
10/05/24 07:15 10/05/24 08:13 10/05/24 08:13 10/05/24 07:15 10/05/24 08:30
Cardiovascular:: Regular rate and rhythm
Respiratory:: Bilateral: Coarse
Lung Excursion:: Normal
Abdomen:: Nontender and Soft
Bowel Sounds:: Normal
Extremity Edema:: +2: Right: and None: Left:
Johnson Catheter: No
[2024-10-05 15:35] VITALS: BP 136/108
[2024-10-05] MEDS: XARELTO 15 MG PO (19:11)
[2024-10-05] MEDS: ANESTHETIC LOZENGE 1 LOZENGE PO (20:50)
[2024-10-05 23:00] VITALS: BP 124/81
[2024-10-06] MEDS: ZOSYN 50 IV ×4 (00:06→18:15)
[2024-10-06 06:00] VITALS: BMI 23.4
[2024-10-06 06:01] LABS: Hematocrit 37.5 % (39.0-52.0); Hemoglobin 12.9 g/dL (13.0-18.0); Mean Corp Hgb Conc. 34.4 g/dL (33.0-37.0); Mean Corpuscular Volume 99.7 fL (80.0-94.0); Platelet Count 404 10^3/uL (130-400); Red Cell Dist. Width 12.1 % (11.5-14.5)
[2024-10-06] MEDS: ANESTHETIC LOZENGE 1 LOZENGE PO ×2 (06:08→15:51)
[2024-10-06 06:19] LABS: Blood Urea Nitrogen 20 mg/dl (9-20); Calcium 9.2 mg/dl (8.4-10.2); Carbon Dioxide 33 mmol/L (22-30); Chloride 96 mmol/L (98-107); Estimated Creatinine Clearance 53 ml/min; Glucose 88 mg/dl (70-99); Potassium 3.5 mmol/L (3.5-5.1); Sodium 134 mmol/L (135-145); eGFR 59.10
--- NOTE | 2024-10-06 07:12 | W.PN.HOSP.TC ---
Addendum entered and electronically signed by Myrna López MD 10/06/24 14:36:
I saw and evaluated the patient independently. I reviewed the resident�s note and agree with findings and plan as documented by Dr. Prakash.
GENERAL: well developed, well nourished, in no apparent distress
HEENT: NC/AT--O2 NC in place
HEART: regular rate and rhythm, +S1, +S2
LUNGS : clear to auscultation bilaterally
ABDOM: soft, nontender, nondistended, + bowel sounds
EXT: no cyanosis, clubbing, or edema--right foot with wound vac and wrap
Purulent cellulitis s/p 4th & 5th toe amputation on 09/26/24 likely due to Peripheral artery disease s/p right iliofemoral endarterectomy with bovine plasty angioplasty and right fem pop bypass and Limb threatening chronic ischemia --apprec podiatry
and vascular--wound vac--resumed Xarelto 09/30/2024
-09/30/2024 Right fourth and fifth partial metatarsal excisions and multiplane debridement was done
-10/01 Vascular surgery- clean wound, decided on vac therapy for healing here.
-09/30 recommended WBAT RLE in surgical shoe
-10/03 Vascular- Physical therapy as tolerated, monitor WBC, Continue antibiotics, blood culture no growth
-10/04 Wound vac placed- next vac change on 10/08
-will discharge once SNF has available bed, adult protective caseworker is working on it- no available bed
-10/04- per cousin's request home care provider for discharge but not safe d/c plan--needs SNF
Leukocytosis-- MRSA screen negative- cefepime was switched to Zosyn for anaerobic coverage- 10/03 is day #5/5 of zosyn; total duration of abx is day 5 (started on 09/26)
atrial flutter-- new onset, occurred in PACU; was also supposed to follow-up with cardiology for cardiac ischemic workup--TSH WNL--apprec cards--cont diltiazem--lasix--Xarelto- ECHO EF 60-65%, Probable aortic sclerosis without stenosis or
regurgitation
Hyponatremia- could be chronic; however, downtrending this admission- resolved-- 10/03 nephrology -Discontinue lisinopril, Maintain fluid restriction- Continue Lasix 40 mg p.o. BID, Follow BMP
Acute kidney injury--possibly due to renal artery stenosis--creat improving--lasix BID, fluid restrict
Rehabilitation--skilled rehab post acute care
Constipation --possibly related to opioids--cont bowel regimen, enemas as needed
Tobacco/EtoH use--no signs of ETOH withdrawal--cont thiamine and folate
COPD- continue Duonebs therapy prn- spiriva daily --wean O2 to off if able--pt states he doesn't wear at home
Essential HTN - continue amlodipine 10mg daily, lisinopril 40mg daily, furosemide 20mg daily
GERD - continue pantoprazole 40mg daily
DVT proph --continue Xarelto 15 mg PO renally dose
Code status-- full
Original Note:
Today's Communication/Plan
-
CM waiting for auth
CBC, CMP
Assessment / Plan
Assessment / Plan
In summary, this is a 69 yo male With a PMH of HTN, PVD, With poorly healing right fifth toe, with progressive claudication symptoms as an outpatient. He came to the ED with a chronic wound on right foot that has worsened with erythema, purulence
concerning for cellulitis.
# Purulent cellulitis s/p 4th & 5th toe amputation on 09/26
# Peripheral artery disease s/p right iliofemoral endarterectomy with bovine plasty angioplasty and right fem pop bypass
# Limb threatening chronic ischemia
- 4th/5th toe wound present with purulence s/p amputation with podiatry on 09/26
- Podiatry recs: return to OR later this week for closure vs vac, saline packing change daily
- After discussion with podiatry resume Xarelto 09/30/2024 Until the OR date available
- 09/30/2024 Right fourth and fifth partial metatarsal excisions and multiplane debridement was done
-10/01 Vascular surgery- clean wound, decided on vac therapy for healing here.
- 09/30 recommended WBAT RLE in surgical shoe
-10/03 Vascular- Physical therapy as tolerated, monitor WBC, Continue antibiotics, blood culture no growth
-10/04 Wound vac placed- next vac change on 10/08
-10/05 adult protective caseworker- no available bed until monday
-WBC downtrending will monitor CBC and temperature
- MRSA screen negative
- cefepime was switched to Zosyn for anaerobic coverage
- 10/03 is day #5/5 of zosyn; total duration of abx is day 5 (started on 09/26)
- he is Afebrile
- continue rosuvastatin 20mg (LDL at goal) and aspirin
- incentive spirometry
- f/p vascular recs
-f/u Podiatry recs
# atrial flutter
- new onset, occurred in PACU; was also supposed to follow-up with cardiology for cardiac ischemic workup
- TSH within normal limits; NTproBNP 900s (unsure baseline)
- per cardiology recs: continue diltiazem
- Continue lasix BID, hold lisinopril
- ECHO EF 60-65%, Probable aortic sclerosis without stenosis or regurgitation
-CrCl improved - Xarelto 20mg
# Hyponatremia
- could be chronic; however, downtrending this admission- resolved
- 10/03 nephrology -Discontinue lisinopril, Maintain fluid restriction- Continue Lasix 40 mg p.o. BID, Follow BMP
- will check daily weight
#Acute kidney injury
-Renal US--Negative for hydronephrosis/obstructive uropathy. Atrophic left kidney, which was present on the prior CTA, likely secondary to renal artery stenosis
-Creatinine downtrending 1.3
-Order urine Studies
-Check urine sodium- calculated FeNA- 0.2%
- follow daily weight
#Rehabilitation
-OT recs- skilled rehab post acute care
#Constipation
- 10/01 Possibly opioid related- scheduled Senna Docusate 1tb BID
-10/02 Started Enema
-Abdominal Xray --Nonspecific bowel gas pattern with large amount of gas and stool within the colon.
-Started Miralax BID , Dulcolax suppository, Milk molassess enema, mineral oil enema--improved
-Obstruction series
# Tobacco/EtoH use
- spiriva daily and duonebs prn for probable COPD- wheezing heard on PE today continue Duonebs therapy prn
-3L of Oxygen SaO2 97%
- nicotine patches
- general counselor on smoking cessation
- monitor for EtOH symptoms
- continue thiamine, folic acid
# Chronic issues per below
# HTN - continue amlodipine 10mg daily, lisinopril 40mg daily, furosemide 20mg daily
# COPD - continue bwlksxfolk-ezhkwlg-yneschdmur inhalers daily
# GERD - continue pantoprazole 40mg daily
DVTppx: continue Xarelto 15 mg PO renally dose
Code: full
Diet: Fluid restricted diet
Dispo DC to home care provider per cousin's request- awaiting auth from
Anticipated Discharge: 24 - 48 hours
Subjective/Interval History
-
Date of Service: October 06, 2024
Patient is lying on his bed. She had 4 bowel movenets does not complain about abdominal pain anymore. He reports feeling better overall.
Objective Data
-
Labs:
Laboratory Results
10/06/24 10/06/24
05:14 05:15
WBC 14.9 H
Hgb 12.9 L
Hct 37.5 L
Plt Count 404 H
Sodium 134 L
Potassium 3.5
Chloride 96 L
Carbon Dioxide 33 H
BUN 20
Creatinine 1.3
Glucose 88
Calcium 9.2
Vital Signs:
Vital Signs
Temp Pulse Resp BP Pulse Ox
98.7 F 84 16 124/81 96
10/05/24 23:00 10/05/24 23:00 10/05/24 23:00 10/05/24 23:00 10/05/24 23:00
I&O
10/05/24 10/06/24 10/07/24
06:59 06:59 06:59
Intake Total 960 / 960 2014
Output Total 1500 / 1500 1775 / 1775
Balance -540 / -540 240 / 240
Review of Systems
-
History Source: Patient
Constitutional: Reports No Symptoms
EENT: Reports No Symptoms Reported
Respiratory: Reports No Symptoms (On [place] oxygen )
Cardiac: Reports No Symptoms
Abdomen/GI: Reports No Symptoms
Breast: Reports No Symptoms
Genitourinary: Reports No Symptoms
Musculoskeletal: Reports Edema
Skin: Reports No Symptoms
Neuro: Reports No Symptoms
Endocrine: Reports No Symptoms
Physical Exam
-
General: Well Developed and Well Nourished
HEENT: Normocephalic and Atraumatic
Respiratory: Clear to Auscultation
Cardiac: Regular Rhythm and S1/S2
Breast: Deferred by me
GI: Soft and Nontender
Rectal: Deferred by Provider
Genito-urinary: Deferred by me
Musculoskeletal: Edema, Right Lower Extrem
Skin: Warm and Dry
Neuro: AO x 3
[2024-10-06 07:35] VITALS: BP 118/78
[2024-10-06] MEDS: SPIRIVA RESPIMAT 2.5 MCG 2 PUFF INH (08:01)
[2024-10-06] MEDS: STRIVERDI RESPIMAT 2 PUFF INH (08:01)
[2024-10-06] MEDS: NICODERM TRANSDERMAL 14 MG TRANSDERM (09:25)
[2024-10-06] MEDS: CARDIZEM CD 180 MG PO (09:26)
[2024-10-06] MEDS: SENOKOT-S PO ×2 (09:26→20:38)
[2024-10-06] MEDS: FOLVITE 1 MG PO (09:27)
[2024-10-06] MEDS: ROXICODONE 10 MG PO ×2 (09:27→20:41)
[2024-10-06] MEDS: PROTONIX 40 MG PO (09:27)
[2024-10-06] MEDS: LASIX 40 MG PO ×2 (09:28→15:51)
[2024-10-06] MEDS: VITAMIN B1 100 MG PO (09:28)
[2024-10-06] MEDS: ASPIR LOW (ENTERIC COATED) 81 MG PO (09:28)
[2024-10-06] MEDS: CRESTOR 20 MG PO (09:28)
[2024-10-06] MEDS: MIRALAX PO (09:29)
--- NOTE | 2024-10-06 12:02 | W.PN.NEPH.PH ---
Today's Communication / Plan
-
follow bmp
maintain lasix and fluid restriction
Assessment/Plan
-
69-year-old male presentation with RLE pain, concern for limb ischemia with PAD s/p urgent extensive right iliofemoral endarterectomy with bovine patch angioplasty and profundoplasty and right femoral to dsjaq-pcf-ldbu popliteal artery bypass
09/25/2024
Other medical history includes atrial flutter, new diagnosis of unclear duration, asymptomatic HTN HLD COPD GERDOngoing tobacco use Daily ETOH use
Renal consultation for hyponatremia decreasing since admission down to 127 with a urine sodium of 6 and a serum osmolality of 281
Impression.
Hyponatremia
DAYRON
PAD status post intervention above
A-flutter
Hypertension
Tobacco use
Moderate alcohol use
Plan
Creatinine improved to 1.3
Sodium at 134, maintain fluid restriction
Lasix 40 mg p.o. BID to continue
Follow BMP
Off lisinopril until creatinine cliff
Nonoliguric
If getting close to discharge would be okay with discharge and outpatient follow-up
-
-
Date of Service: October 06, 2024
CC / HPI / ROS
-
Chief Complaint:
Hyponatremia
History of Present Illness:
Sodium at 134
DAYRON/Cr (baseline creatinine 0.9�1.1) down to 1.3,but unchanged
Hemodynamically stable
Right lower extremity edema
Review of Systems:
No chest pain or shortness of breath
Nonoliguric
Labs
-
Labs:
WBC 14.9 10^3/uL (4.8-10.8) H 10/06/24 05:15
RBC 3.76 10^6/uL (4.70-6.10) L 10/06/24 05:15
Hgb 12.9 g/dL (13.0-18.0) L 10/06/24 05:15
Hct 37.5 % (39.0-52.0) L 10/06/24 05:15
Plt Count 404 10^3/uL (130-400) H 10/06/24 05:15
Sodium 134 mmol/L (135-145) L 10/06/24 05:14
Potassium 3.5 mmol/L (3.5-5.1) 10/06/24 05:14
Chloride 96 mmol/L (98-107) L 10/06/24 05:14
Carbon Dioxide 33 mmol/L (22-30) H 10/06/24 05:14
BUN 20 mg/dl (9-20) 10/06/24 05:14
Creatinine 1.3 mg/dL (0.7-1.3) 10/06/24 05:14
eGFR 59.10 10/06/24 05:14
Glucose 88 mg/dl (70-99) 10/06/24 05:14
Calcium 9.2 mg/dl (8.4-10.2) 10/06/24 05:14
Phosphorus Cancelled 09/25/24 14:18
Ovm-U-Mwxjqhsouun Pept 1930 pg/ml 09/29/24 05:40
Albumin 3.3 g/dl (3.5-5.0) L 10/04/24 08:22
Physical Exam
-
Vital Signs:
Vital Signs
Temp Pulse Resp BP Pulse Ox
98.0 F 80 14 118/78 94
10/06/24 07:35 10/06/24 08:05 10/06/24 08:05 10/06/24 07:35 10/06/24 08:05
Cardiovascular:: Regular rate and rhythm
Respiratory:: Bilateral: Coarse
Lung Excursion:: Normal
Abdomen:: Nontender and Soft
Bowel Sounds:: Normal
Extremity Edema:: +2: Right: and None: Left:
Johnson Catheter: No
[2024-10-06 15:22] VITALS: BP 127/81; PULSE 84; O2SAT 94
[2024-10-06 15:25] VITALS: BP 127/81
[2024-10-06] MEDS: TYLENOL 650 MG PO (18:14)
[2024-10-06] MEDS: XARELTO 20 MG PO (18:15)
[2024-10-06 23:00] VITALS: BP 128/84
[2024-10-07 05:38] VITALS: BMI 22.9
[2024-10-07] MEDS: ANESTHETIC LOZENGE 1 LOZENGE PO (05:45)
[2024-10-07 07:15] VITALS: BP 123/83
--- NOTE | 2024-10-07 07:17 | W.PN.HOSP.TC ---
Today's Communication/Plan
-
Replete K, MG
PT
Assessment / Plan
Assessment / Plan
In summary, this is a 69 yo male With a PMH of HTN, PVD, With poorly healing right fifth toe, with progressive claudication symptoms as an outpatient. He came to the ED with a chronic wound on right foot that has worsened with erythema, purulence
concerning for cellulitis.
# Purulent cellulitis s/p 4th & 5th toe amputation on 09/26
# Peripheral artery disease s/p right iliofemoral endarterectomy with bovine plasty angioplasty and right fem pop bypass
# Limb threatening chronic ischemia
- 4th/5th toe wound present with purulence s/p amputation with podiatry on 09/26
- Podiatry recs: return to OR later this week for closure vs vac, saline packing change daily
- After discussion with podiatry resume Xarelto 09/30/2024 Until the OR date available
- 09/30/2024 Right fourth and fifth partial metatarsal excisions and multiplane debridement was done
-10/01 Vascular surgery- clean wound, decided on vac therapy for healing here.
- 09/30 recommended WBAT RLE in surgical shoe
-10/03 Vascular- Physical therapy as tolerated, monitor WBC, Continue antibiotics, blood culture no growth
-10/04 Wound vac placed- next vac change on 10/08
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
-PT/OT
-WBC downtrending will monitor CBC and temperature
- MRSA screen negative
- cefepime was switched to Zosyn for anaerobic coverage
- 10/03 is day #5/5 of zosyn; total duration of abx is day 5 (started on 09/26)
- he is Afebrile
- continue rosuvastatin 20mg (LDL at goal) and aspirin
- incentive spirometry
- f/p vascular recs
-f/u Podiatry recs
# atrial flutter
- new onset, occurred in PACU; was also supposed to follow-up with cardiology for cardiac ischemic workup
- TSH within normal limits; NTproBNP 900s (unsure baseline)
- per cardiology recs: continue diltiazem
- Continue lasix BID, hold lisinopril
- ECHO EF 60-65%, Probable aortic sclerosis without stenosis or regurgitation
-CrCl improved - Xarelto 20mg
# Hyponatremia
- could be chronic; however, downtrending this admission- resolved
- 10/03 nephrology -Discontinue lisinopril, Maintain fluid restriction- Continue Lasix 40 mg p.o. BID, Follow BMP
- will check daily weight
- Repleted 40mEq K x2 and 400mg Mg Oxide x2
#Acute kidney injury
-Renal US--Negative for hydronephrosis/obstructive uropathy. Atrophic left kidney, which was present on the prior CTA, likely secondary to renal artery stenosis
-Creatinine downtrending 1.3
-Order urine Studies
-Check urine sodium- calculated FeNA- 0.2%
- follow daily weight-- lost 4kgs since admission
#Constipation
- 10/01 Possibly opioid related- scheduled Senna Docusate 1tb BID
-10/02 Started Enema
-Abdominal Xray --Nonspecific bowel gas pattern with large amount of gas and stool within the colon.
-Started Miralax BID , Dulcolax suppository, Milk molassess enema, mineral oil enema--resolved
-Obstruction series
# Tobacco/EtoH use
- spiriva daily and duonebs prn for probable COPD- wheezing heard on PE today continue Duonebs therapy prn
-3L of Oxygen SaO2 97% - D/C oxygen
- nicotine patches
- student counselor on smoking cessation
- monitor for EtOH symptoms
- continue thiamine, folic acid
# Chronic issues per below
# HTN - continue amlodipine 10mg daily, lisinopril 40mg daily, furosemide 20mg daily
# COPD - continue prinhxpwvb-jeyuefi-ivjvkcrpap inhalers daily
# GERD - continue pantoprazole 40mg daily
DVTppx: continue Xarelto 15 mg PO renally dose
Code: full
Diet: Fluid restricted diet
Dispo DC to home care provider per cousin's request- awaiting auth from
Anticipated Discharge: 24 - 48 hours
Subjective/Interval History
-
Date of Service: October 07, 2024
Patient was sitting on the bed, had 1 bm, denies abdominal pain. He is not on Oxygen [place] anymore. He was able to walk on the hallway with PT yesterday. His right leg swelling decreased. He reports feeling good. Also, he mentions wanting to go home
than SNF. He believes his neighbors, cousin would help him.
Objective Data
-
Labs:
Laboratory Results
10/07/24
06:42
WBC Pending
Hgb Pending
Hct Pending
Plt Count Pending
Sodium Pending
Potassium Pending
Chloride Pending
Carbon Dioxide Pending
BUN Pending
Creatinine Pending
Glucose Pending
Calcium Pending
Vital Signs:
Vital Signs
Temp Pulse Resp BP Pulse Ox
98.0 F 85 16 128/84 95
10/06/24 23:00 10/06/24 23:00 10/06/24 23:00 10/06/24 23:00 10/06/24 23:00
I&O
10/06/24 10/07/24 10/08/24
06:59 06:59 06:59
Intake Total 2014 2285 / 2285
Output Total 177 / 1774 1070 / 1070
Balance 240 / 240 1215 / 1215
Review of Systems
-
History Source: Patient
Constitutional: Reports No Symptoms
EENT: Reports No Symptoms Reported
Respiratory: Reports No Symptoms (On [place] oxygen )
Cardiac: Reports No Symptoms
Abdomen/GI: Reports No Symptoms
Breast: Reports No Symptoms
Genitourinary: Reports No Symptoms
Musculoskeletal: Reports Edema
Skin: Reports No Symptoms
Neuro: Reports No Symptoms
Endocrine: Reports No Symptoms
Physical Exam
-
General: Well Developed and Well Nourished
HEENT: Normocephalic and Atraumatic
Respiratory: Clear to Auscultation
Cardiac: Regular Rhythm and S1/S2
Breast: Deferred by me
GI: Soft and Nontender
Rectal: Deferred by Provider
Genito-urinary: Deferred by me
Musculoskeletal: Edema, Right Lower Extrem
Skin: Warm and Dry
Neuro: AO x 3
Psych: Calm
[2024-10-07] MEDS: STRIVERDI RESPIMAT 2 PUFF INH (07:27)
[2024-10-07] MEDS: SPIRIVA RESPIMAT 2.5 MCG 2 PUFF INH (07:27)
[2024-10-07 07:30] LABS: Hematocrit 37.0 % (39.0-52.0); Hemoglobin 12.6 g/dL (13.0-18.0); Mean Corp Hgb Conc. 34.1 g/dL (33.0-37.0); Mean Corpuscular Volume 98.1 fL (80.0-94.0); Platelet Count 370 10^3/uL (130-400); Red Cell Dist. Width 12.0 % (11.5-14.5)
[2024-10-07 07:49] LABS: Blood Urea Nitrogen 17 mg/dl (9-20); Calcium 9.1 mg/dl (8.4-10.2); Carbon Dioxide 34 mmol/L (22-30); Chloride 94 mmol/L (98-107); Estimated Creatinine Clearance 53 ml/min; Glucose 87 mg/dl (70-99); Magnesium 1.6 mg/dl (1.6-2.3); Potassium 3.0 mmol/L (3.5-5.1); Sodium 134 mmol/L (135-145); eGFR 59.10
[2024-10-07] MEDS: CARDIZEM CD 180 MG PO (08:21)
[2024-10-07] MEDS: FOLVITE 1 MG PO (08:21)
[2024-10-07] MEDS: SENOKOT-S PO (08:21)
[2024-10-07] MEDS: PROTONIX 40 MG PO (08:21)
[2024-10-07] MEDS: VITAMIN B1 100 MG PO (08:21)
[2024-10-07] MEDS: ASPIR LOW (ENTERIC COATED) 81 MG PO (08:21)
[2024-10-07] MEDS: NICODERM TRANSDERMAL 14 MG TRANSDERM (08:22)
[2024-10-07] MEDS: MIRALAX PO (08:22)
[2024-10-07] MEDS: LASIX 40 MG PO (08:22)
[2024-10-07] MEDS: CRESTOR 20 MG PO (08:22)
[2024-10-07] MEDS: MAGNESIUM OXIDE 400 MG PO ×2 (08:29→16:08)
[2024-10-07] MEDS: KCL 40 MEQ PO ×2 (08:29→16:08)
[2024-10-07] MEDS: ROXICODONE 10 MG PO ×2 (10:30→17:17)
--- NOTE | 2024-10-07 11:42 | W.PN.NEPH.PH ---
Addendum entered and electronically signed by Alexander Ellsworth DO 10/07/24 11:47:
Will also decrease Lasix dosage to 40 mg daily given ongoing hypokalemia metabolic alkalosis and dropping weights
Original Note:
Today's Communication / Plan
-
Initiate Diamox
Replete potassium
Follow BMP
Assessment/Plan
-
69-year-old male presentation with RLE pain, concern for limb ischemia with PAD s/p urgent extensive right iliofemoral endarterectomy with bovine patch angioplasty and profundoplasty and right femoral to izave-vvo-zhzb popliteal artery bypass
09/25/2024
Other medical history includes atrial flutter, new diagnosis of unclear duration, asymptomatic HTN HLD COPD GERDOngoing tobacco use Daily ETOH use
Renal consultation for hyponatremia decreasing since admission down to 127 with a urine sodium of 6 and a serum osmolality of 281
Impression.
Hyponatremia
DAYRON
PAD status post intervention above
A-flutter
Hypertension
Tobacco use
Moderate alcohol use
Plan
Creatinine improved to 1.3, nonoliguric around 1200 cc
Sodium at 134, maintain fluid restriction
Lasix 40 mg p.o. BID to continue however patient appears to have evolving metabolic alkalosis with subsequent hypokalemia
Concern for contraction alkalosis will initiate Diamox
Replete potassium
Follow BMP
Off lisinopril until creatinine cliff, BP stable on diltiazem
-
-
Date of Service: October 07, 2024
CC / HPI / ROS
-
Chief Complaint:
Hyponatremia
History of Present Illness:
Sodium at 134
DAYRON/Cr (baseline creatinine 0.9�1.1) down to 1.3,but unchanged
Hemodynamically stable
Evolving metabolic alkalosis
Review of Systems:
No chest pain or shortness of breath
Nonoliguric and weights decreased
Labs
-
Labs:
WBC 13.8 10^3/uL (4.8-10.8) H 10/07/24 06:42
RBC 3.77 10^6/uL (4.70-6.10) L 10/07/24 06:42
Hgb 12.6 g/dL (13.0-18.0) L 10/07/24 06:42
Hct 37.0 % (39.0-52.0) L 10/07/24 06:42
Plt Count 370 10^3/uL (130-400) 10/07/24 06:42
Sodium 134 mmol/L (135-145) L 10/07/24 06:42
Potassium 3.0 mmol/L (3.5-5.1) L 10/07/24 06:42
Chloride 94 mmol/L (98-107) L 10/07/24 06:42
Carbon Dioxide 34 mmol/L (22-30) H 10/07/24 06:42
BUN 17 mg/dl (9-20) 10/07/24 06:42
Creatinine 1.3 mg/dL (0.7-1.3) 10/07/24 06:42
eGFR 59.10 10/07/24 06:42
Glucose 87 mg/dl (70-99) 10/07/24 06:42
Calcium 9.1 mg/dl (8.4-10.2) 10/07/24 06:42
Phosphorus Cancelled 09/25/24 14:18
Nao-D-Jvxlugckkcn Pept 1930 pg/ml 09/29/24 05:40
Albumin 3.3 g/dl (3.5-5.0) L 10/04/24 08:22
Physical Exam
-
Vital Signs:
Vital Signs
Temp Pulse Resp BP Pulse Ox
98.2 F 88 16 141/84 92
10/07/24 07:15 10/07/24 08:22 10/07/24 07:30 10/07/24 08:22 10/07/24 10:12
Cardiovascular:: Regular rate and rhythm
Respiratory:: Bilateral: Coarse
Lung Excursion:: Normal
Abdomen:: Nontender and Soft
Bowel Sounds:: Normal
Extremity Edema:: +2: Right: and None: Left:
Johnson Catheter: No
[2024-10-07 14:55] VITALS: BP 116/95
[2024-10-07] MEDS: XARELTO 20 MG PO (17:16)
[2024-10-07] MEDS: DIAMOX 250 MG PO (20:08)
[2024-10-07] MEDS: SENOKOT-S 1 TABLET PO (20:08)
[2024-10-07 23:00] VITALS: BP 140/82
[2024-10-08 06:00] VITALS: BMI 22.6
[2024-10-08 06:44] LABS: Hematocrit 36.1 % (39.0-52.0); Hemoglobin 12.3 g/dL (13.0-18.0); Mean Corp Hgb Conc. 34.1 g/dL (33.0-37.0); Mean Corpuscular Volume 97.3 fL (80.0-94.0); Nucleated Red Blood Cells % 0 % (-); Platelet Count 347 10^3/uL (130-400); Red Cell Dist. Width 11.9 % (11.5-14.5)
[2024-10-08 07:11] LABS: Blood Urea Nitrogen 15 mg/dl (9-20); Calcium 9.2 mg/dl (8.4-10.2); Carbon Dioxide 32 mmol/L (22-30); Chloride 98 mmol/L (98-107); Estimated Creatinine Clearance 52 ml/min; Glucose 93 mg/dl (70-99); Potassium 3.3 mmol/L (3.5-5.1); Sodium 134 mmol/L (135-145); eGFR 59.10
--- NOTE | 2024-10-08 07:22 | W.PN.HOSP.TC ---
Today's Communication/Plan
-
Replete K, Mg
Discharge
Assessment / Plan
Assessment / Plan
In summary, this is a 69 yo male With a PMH of HTN, PVD, With poorly healing right fifth toe, with progressive claudication symptoms as an outpatient. He came to the ED with a chronic wound on right foot that has worsened with erythema, purulence
concerning for cellulitis.
# Purulent cellulitis s/p 4th & 5th toe amputation on 09/26
# Peripheral artery disease s/p right iliofemoral endarterectomy with bovine plasty angioplasty and right fem pop bypass
# Limb threatening chronic ischemia
- 4th/5th toe wound present with purulence s/p amputation with podiatry on 09/26
- Podiatry recs: return to OR later this week for closure vs vac, saline packing change daily
- After discussion with podiatry resume Xarelto 09/30/2024 Until the OR date available
- 09/30/2024 Right fourth and fifth partial metatarsal excisions and multiplane debridement was done
-10/01 Vascular surgery- clean wound, decided on vac therapy for healing here.
- 09/30 recommended WBAT RLE in surgical shoe
-10/03 Vascular- Physical therapy as tolerated, monitor WBC, Continue antibiotics, blood culture no growth
-10/04 Wound vac placed- next vac change on 10/08
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
-PT/OT
-WBC downtrending will monitor CBC and temperature
- MRSA screen negative
- cefepime was switched to Zosyn for anaerobic coverage
- 10/03 is day #5/5 of zosyn; total duration of abx is day 5 (started on 09/26)
- he is Afebrile
- continue rosuvastatin 20mg (LDL at goal) and aspirin
- incentive spirometry
- f/p vascular recs
-f/u Podiatry recs
# atrial flutter
- new onset, occurred in PACU; was also supposed to follow-up with cardiology for cardiac ischemic workup
- TSH within normal limits; NTproBNP 900s (unsure baseline)
- per cardiology recs: continue diltiazem
- Continue lasix BID, hold lisinopril
- ECHO EF 60-65%, Probable aortic sclerosis without stenosis or regurgitation
-CrCl improved - Xarelto 20mg
# Hyponatremia
- could be chronic; however, downtrending this admission- resolved
- 10/03 nephrology -Discontinue lisinopril, Maintain fluid restriction- Continue Lasix 40 mg p.o. BID, Follow BMP
- will check daily weight
- Repleted 40mEq K x2 and 400mg Mg Oxide x2
-Nephro- decrease Furosemide 40mg QD
--Acetazolamide 250mg- met. alkolosis correction
#Acute kidney injury
-Renal US--Negative for hydronephrosis/obstructive uropathy. Atrophic left kidney, which was present on the prior CTA, likely secondary to renal artery stenosis
-Creatinine downtrending 1.3
-Order urine Studies
-Check urine sodium- calculated FeNA- 0.2%
- follow daily weight-- lost 4kgs since admission
#Constipation
- 10/01 Possibly opioid related- scheduled Senna Docusate 1tb BID
-10/02 Started Enema
-Abdominal Xray --Nonspecific bowel gas pattern with large amount of gas and stool within the colon.
-Started Miralax BID , Dulcolax suppository, Milk molassess enema, mineral oil enema--resolved
-Obstruction series
# Tobacco/EtoH use
- spiriva daily and duonebs prn for probable COPD- wheezing heard on PE today continue Duonebs therapy prn
-3L of Oxygen SaO2 97% - D/C oxygen
- nicotine patches
- alcoholic counselor on smoking cessation
- monitor for EtOH symptoms
- continue thiamine, folic acid
# Chronic issues per below
# HTN - continue amlodipine 10mg daily, lisinopril 40mg daily, furosemide 20mg daily
# COPD - continue zzeqykfmtz-pipkshh-jnvgpzfgjl inhalers daily
# GERD - continue pantoprazole 40mg daily
DVTppx: continue Xarelto 15 mg PO renally dose
Code: full
Diet: Fluid restricted diet
Dispo DC to home care provider per cousin's request- awaiting auth from
Anticipated Discharge: Within 24 hours
Subjective/Interval History
-
Date of Service: October 08, 2024
He is comfortable sitting on his chain. HE has been walking twice since yesterday. His bm improved. Denies any pain.
Objective Data
-
Labs:
Laboratory Results
10/08/24
06:17
WBC 15.6 H
Hgb 12.3 L
Hct 36.1 L
Plt Count 347
Sodium 134 L
Potassium 3.3 L
Chloride 98
Carbon Dioxide 32 H
BUN 15
Creatinine 1.3
Glucose 93
Calcium 9.2
Vital Signs:
Vital Signs
Temp Pulse Resp BP Pulse Ox
98.9 F 92 16 140/82 94
10/07/24 23:00 10/07/24 23:00 10/07/24 23:00 10/07/24 23:00 10/07/24 23:00
I&O
10/07/24 10/08/24 10/09/24
06:59 06:59 06:59
Intake Total 2285 / 2285 520 / 520
Output Total 1070 / 1070 1250 / 1250
Balance 1215 / 1215 -730 / -730
Review of Systems
-
History Source: Patient
Constitutional: Reports No Symptoms
EENT: Reports No Symptoms Reported
Respiratory: Reports No Symptoms (On [place] oxygen )
Cardiac: Reports No Symptoms
Abdomen/GI: Reports No Symptoms
Breast: Reports No Symptoms
Genitourinary: Reports No Symptoms
Musculoskeletal: Reports Edema
Skin: Reports No Symptoms
Neuro: Reports No Symptoms
Endocrine: Reports No Symptoms
Physical Exam
-
General: Well Developed and Well Nourished
HEENT: Normocephalic and Atraumatic
Respiratory: Clear to Auscultation
Cardiac: Regular Rhythm and S1/S2
Breast: Deferred by me
GI: Soft and Nontender
Rectal: Deferred by Provider
Genito-urinary: Deferred by me
Musculoskeletal: Edema, Right Lower Extrem
Skin: Warm and Dry
Neuro: AO x 3
Psych: Calm
[2024-10-08 07:38] VITALS: BP 143/83
[2024-10-08 07:59] VITALS: BMI 22.6
[2024-10-08] MEDS: MIRALAX PO (08:13)
[2024-10-08] MEDS: PROTONIX 40 MG PO (08:18)
[2024-10-08] MEDS: FOLVITE 1 MG PO (08:18)
[2024-10-08] MEDS: ASPIR LOW (ENTERIC COATED) 81 MG PO (08:18)
[2024-10-08] MEDS: NICODERM TRANSDERMAL 14 MG TRANSDERM (08:18)
[2024-10-08] MEDS: VITAMIN B1 100 MG PO (08:18)
[2024-10-08] MEDS: SENOKOT-S 1 TABLET PO (08:18)
[2024-10-08] MEDS: DIAMOX 250 MG PO ×2 (08:19→20:42)
[2024-10-08] MEDS: CRESTOR 20 MG PO (08:19)
[2024-10-08] MEDS: CARDIZEM CD 180 MG PO (08:19)
[2024-10-08] MEDS: LASIX 40 MG PO (08:19)
[2024-10-08] MEDS: ROXICODONE 10 MG PO ×2 (08:39→15:57)
[2024-10-08] MEDS: KCL 40 MEQ PO ×2 (09:42→12:17)
[2024-10-08] MEDS: SPIRIVA RESPIMAT 2.5 MCG 2 PUFF INH (11:28)
[2024-10-08] MEDS: STRIVERDI RESPIMAT 2 PUFF INH (11:28)
--- NOTE | 2024-10-08 12:39 | W.PN.NEPH.PH ---
Today's Communication / Plan
-
cont lasix, replete k
Assessment/Plan
-
69-year-old male presentation with RLE pain, concern for limb ischemia with PAD s/p urgent extensive right iliofemoral endarterectomy with bovine patch angioplasty and profundoplasty and right femoral to qehdj-opn-txrz popliteal artery bypass
09/25/2024
Other medical history includes atrial flutter, new diagnosis of unclear duration, asymptomatic HTN HLD COPD GERDOngoing tobacco use Daily ETOH use
Renal consultation for hyponatremia decreasing since admission down to 127 with a urine sodium of 6 and a serum osmolality of 281
Impression.
Hyponatremia
DAYRON
PAD status post intervention above
A-flutter
Hypertension
Tobacco use
Moderate alcohol use
Plan
Creatinine stable at 1.3,
Sodium at 134, maintain fluid restriction
cont lasix daily and replace k . wt decreasing
diamox course for me alkalosis
Follow BMP
Off lisinopril until creatinine cliff, BP stable on diltiazem
labs in am
d/c plan
-
-
Date of Service: October 08, 2024
CC / HPI / ROS
-
Chief Complaint:
Hyponatremia
History of Present Illness:
Sodium stable at 134
DAYRON/Cr (baseline creatinine 0.9�1.1) stable at 1.3
Hemodynamically stable
improving metabolic alkalosis
Review of Systems:
No chest pain or shortness of breath
Nonoliguric and weights decreased
Labs
-
Labs:
WBC 15.6 10^3/uL (4.8-10.8) H 10/08/24 06:17
RBC 3.71 10^6/uL (4.70-6.10) L 10/08/24 06:17
Hgb 12.3 g/dL (13.0-18.0) L 10/08/24 06:17
Hct 36.1 % (39.0-52.0) L 10/08/24 06:17
Plt Count 347 10^3/uL (130-400) 10/08/24 06:17
Sodium 134 mmol/L (135-145) L 10/08/24 06:17
Potassium 3.3 mmol/L (3.5-5.1) L 10/08/24 06:17
Chloride 98 mmol/L (98-107) 10/08/24 06:17
Carbon Dioxide 32 mmol/L (22-30) H 10/08/24 06:17
BUN 15 mg/dl (9-20) 10/08/24 06:17
Creatinine 1.3 mg/dL (0.7-1.3) 10/08/24 06:17
eGFR 59.10 10/08/24 06:17
Glucose 93 mg/dl (70-99) 10/08/24 06:17
Calcium 9.2 mg/dl (8.4-10.2) 10/08/24 06:17
Phosphorus Cancelled 09/25/24 14:18
Ieh-Y-Kbsttepflbn Pept 1930 pg/ml 09/29/24 05:40
Albumin 3.3 g/dl (3.5-5.0) L 10/04/24 08:22
Physical Exam
-
Vital Signs:
Vital Signs
Temp Pulse Resp BP Pulse Ox
99.1 F 80 16 143/83 95
10/08/24 07:38 10/08/24 11:32 10/08/24 11:32 10/08/24 08:19 10/08/24 07:38
Cardiovascular:: Regular rate and rhythm
Respiratory:: Bilateral: Coarse
Lung Excursion:: Normal
Abdomen:: Nontender and Soft
Bowel Sounds:: Normal
Extremity Edema:: +2: Right: and None: Left:
Johnson Catheter: No
[2024-10-08 12:53] LABS: Magnesium 1.7 mg/dl (1.6-2.3)
--- NOTE | 2024-10-08 13:26 | CM ---
Addendum entered by Marium Vu RN 10/08/24 15:59:
Clinicals faxed to [phone]
Original Note:
Reviewed the chart notes and spoke with the patient at the bedside. [facility] able to accept. Auth started. Waiting on updated PT/OT notes for insurance auth.
[facility] NPI# [id number]
Dr. Ortez NPI# [id number]
Pended Auth # [id number]. Will fax clinicals to [phone] once updated PT notes are completed. TT to PT regarding same.
[2024-10-08 14:50] VITALS: BP 124/74; PULSE 63; O2SAT 92
[2024-10-08 15:19] VITALS: BP 124/74
--- NOTE | 2024-10-08 16:19 | WOUNDNOTE ---
[facility] RN NOTE: Patient visited to change wound vac. Patient is s/p R 05/11 MT head resection and vac ordered to be placed on open incision by Dr. Moore. Patient medicated for pain prior to assessment and wound vac placement. Old dressing removed
and sutured area slightly macerated. Mild maceration noted around the wound. Wound bed is pink, no odor or purulent drainage noted. Photos taken and sent to Dr. Low. No-sting barrier applied to all areas, including macerated are. Alginate was
applied to the macerated area. An Eakins seal was placed directly around the periwound to even out edges of wound. Patient tolerated vac placement well. Heels and sacrum intact. Sacrum intact, patient demonstrated ability to turn in bed. Air cushion
in chair. Patient reports getting up daily. This database report writer encouraged patient to continue moving, turning and off-load sacrum and to keep heels off-loaded when in bed. Appetite is good. He is on a [employer] Accumax. Will confirm with podiatry that
next wound vac change will be on 10/11 if patient not transferred to SNF.
--- NOTE | 2024-10-08 16:20 | WOUNDNOTE ---
RIGHT TOE AMP SITE(:1955, M#:[id number])
--- NOTE | 2024-10-08 16:21 | WOUNDNOTE ---
RIGHT TOE AMP SITE(:1955, M#:[id number])
--- NOTE | 2024-10-08 17:22 | W.PN.UPDATE ---
Update Note
Progress Note Update
69M s/p R 05/11 MT head resection, transitioned from packing to NPWT
- plan for OR tomorrow for closure, NPO midnight tonight
- dc NPWT
-- wound packed with saline w2d
- WBAT RLE in surgical shoe
- will follow
[2024-10-08] MEDS: XARELTO 20 MG PO (17:47)
[2024-10-08] MEDS: SENOKOT-S PO (20:41)
[2024-10-08 23:30] VITALS: BP 131/80
[2024-10-09] VITALS (12 sets, daily range): BP systolic 109–144; BP diastolic 70–97; BMI 22.7
[2024-10-09] MEDS: ROXICODONE 10 MG PO ×2 (05:45→18:34)
[2024-10-09 06:44] LABS: Hematocrit 36.9 % (39.0-52.0); Hemoglobin 12.5 g/dL (13.0-18.0); Mean Corp Hgb Conc. 33.9 g/dL (33.0-37.0); Mean Corpuscular Volume 97.9 fL (80.0-94.0); Platelet Count 327 10^3/uL (130-400); Red Cell Dist. Width 12.2 % (11.5-14.5)
[2024-10-09 07:20] LABS: Blood Urea Nitrogen 15 mg/dl (9-20); Calcium 9.7 mg/dl (8.4-10.2); Carbon Dioxide 27 mmol/L (22-30); Chloride 101 mmol/L (98-107); Estimated Creatinine Clearance 56 ml/min; Glucose 98 mg/dl (70-99); Magnesium 1.7 mg/dl (1.6-2.3); Potassium 3.6 mmol/L (3.5-5.1); Sodium 134 mmol/L (135-145); eGFR > 60.00
[2024-10-09] MEDS: STRIVERDI RESPIMAT 2 PUFF INH (07:56)
[2024-10-09] MEDS: SPIRIVA RESPIMAT 2.5 MCG 2 PUFF INH (07:57)
[2024-10-09] MEDS: KCL 270 MEQ IV (09:31)
[2024-10-09] MEDS: LASIX 40 MG PO (09:32)
[2024-10-09] MEDS: CRESTOR 20 MG PO (09:32)
[2024-10-09] MEDS: FOLVITE 1 MG PO (09:32)
[2024-10-09] MEDS: NICODERM TRANSDERMAL 14 MG TRANSDERM (09:33)
[2024-10-09] MEDS: ASPIR LOW (ENTERIC COATED) 81 MG PO (09:33)
[2024-10-09] MEDS: MIRALAX PO ×2 (09:33→09:35)
[2024-10-09] MEDS: PROTONIX 40 MG PO (09:33)
[2024-10-09] MEDS: SENOKOT-S 1 TABLET PO ×2 (09:33→20:41)
[2024-10-09] MEDS: CARDIZEM CD 180 MG PO (09:33)
[2024-10-09] MEDS: DIAMOX 250 MG PO (09:33)
[2024-10-09] MEDS: VITAMIN B1 100 MG PO (09:33)
--- NOTE | 2024-10-09 10:17 | W.PN.HOSP.TC ---
Today's Communication/Plan
-
F/u after surgery
Monitor K, Mg
Assessment / Plan
Assessment / Plan
In summary, this is a 69 yo male With a PMH of HTN, PVD, With poorly healing right fifth toe, with progressive claudication symptoms as an outpatient. He came to the ED with a chronic wound on right foot that has worsened with erythema, purulence
concerning for cellulitis.
# Purulent cellulitis s/p 4th & 5th toe amputation on 09/26
# Peripheral artery disease s/p right iliofemoral endarterectomy with bovine plasty angioplasty and right fem pop bypass
# Limb threatening chronic ischemia
- 4th/5th toe wound present with purulence s/p amputation with podiatry on 09/26
- Podiatry recs: return to OR later this week for closure vs vac, saline packing change daily
- After discussion with podiatry resume Xarelto 09/30/2024 Until the OR date available
- 09/30/2024 Right fourth and fifth partial metatarsal excisions and multiplane debridement was done
-10/01 Vascular surgery- clean wound, decided on vac therapy for healing here.
- 09/30 recommended WBAT RLE in surgical shoe
-10/03 Vascular- Physical therapy as tolerated, monitor WBC, Continue antibiotics, blood culture no growth
-10/04 Wound vac placed
-10/05 case management coordinator- no available bed until monday
-PT/OT
-10/08- DC NPWT, NPO
-10/09 - Surgery for wound closure
-WBC downtrending will monitor CBC and temperature
- MRSA screen negative
- cefepime was switched to Zosyn for anaerobic coverage
- 10/03 is day #5/5 of zosyn; total duration of abx is day 5 (started on 09/26)
- he is Afebrile
- continue rosuvastatin 20mg (LDL at goal) and aspirin
- incentive spirometry
- f/p vascular recs
-f/u Podiatry recs
# atrial flutter
- new onset, occurred in PACU; was also supposed to follow-up with cardiology for cardiac ischemic workup
- TSH within normal limits; NTproBNP 900s (unsure baseline)
- per cardiology recs: continue diltiazem
- Continue lasix BID, hold lisinopril
- ECHO EF 60-65%, Probable aortic sclerosis without stenosis or regurgitation
-CrCl improved - Xarelto 20mg
# Hyponatremia
- could be chronic; however, downtrending this admission- resolved
- 10/03 nephrology -Discontinue lisinopril, Maintain fluid restriction- Continue Lasix 40 mg p.o. BID, Follow BMP
- will check daily weight
-Nephro- decrease Furosemide 40mg QD
--Acetazolamide 250mg- met. alkolosis correction
- Replete K, Mg
#Acute kidney injury
-Renal US--Negative for hydronephrosis/obstructive uropathy. Atrophic left kidney, which was present on the prior CTA, likely secondary to renal artery stenosis
-Creatinine downtrending 1.2
-Order urine Studies
-Check urine sodium- calculated FeNA- 0.2%
- follow daily weight-- lost 4kgs since admission
#Constipation
- 10/01 Possibly opioid related- scheduled Senna Docusate 1tb BID
-10/02 Started Enema
-Abdominal Xray --Nonspecific bowel gas pattern with large amount of gas and stool within the colon.
-Started Miralax BID , Dulcolax suppository, Milk molassess enema, mineral oil enema--resolved
-Obstruction series
# Tobacco/EtoH use
- spiriva daily and duonebs prn for probable COPD- wheezing heard on PE today continue Duonebs therapy prn
-3L of Oxygen SaO2 97% - D/C oxygen
- nicotine patches
- college admissions counselor on smoking cessation
- monitor for EtOH symptoms
- continue thiamine, folic acid
# Chronic issues per below
# HTN - continue amlodipine 10mg daily, lisinopril 40mg daily, furosemide 20mg daily
# COPD - continue fsstelraiu-mnvjofh-ssqirprsxb inhalers daily
# GERD - continue pantoprazole 40mg daily
DVTppx: continue Xarelto 15 mg PO renally dose
Code: full
Diet: Fluid restricted diet
Dispo DC to home care provider per cousin's request- awaiting auth from
Anticipated Discharge: > 48 hours
Subjective/Interval History
-
Date of Service: October 09, 2024
He was sitting lying in his bed. Complains about being thirsty and feeling dry. NPO because of surgery. Denies andominal pain, leg pain.
Objective Data
-
Labs:
Laboratory Results
10/09/24
06:06
WBC 14.0 H
Hgb 12.5 L
Hct 36.9 L
Plt Count 327
Sodium 134 L
Potassium 3.6
Chloride 101
Carbon Dioxide 27
BUN 15
Creatinine 1.2
Glucose 98
Calcium 9.7
Vital Signs:
Vital Signs
Temp Pulse Resp BP Pulse Ox
98.5 F 60 16 129/73 94
10/09/24 07:35 10/09/24 08:00 10/09/24 08:00 10/09/24 07:35 10/09/24 08:00
I&O
10/08/24 10/09/24 10/10/24
06:59 06:59 06:59
Intake Total 520 / 520 960 / 960
Output Total 1250 / 1250 900 / 900
Balance -730 / -730 60 / 60
Review of Systems
-
History Source: Patient
Constitutional: Reports No Symptoms
EENT: Reports No Symptoms Reported
Respiratory: Reports No Symptoms (On [place] oxygen )
Cardiac: Reports No Symptoms
Abdomen/GI: Reports No Symptoms
Breast: Reports No Symptoms
Genitourinary: Reports No Symptoms
Musculoskeletal: Reports Edema
Skin: Reports No Symptoms
Neuro: Reports No Symptoms
Endocrine: Reports No Symptoms
Physical Exam
-
General: Well Developed and Well Nourished
HEENT: Normocephalic and Atraumatic
Respiratory: Clear to Auscultation
Cardiac: Regular Rhythm and S1/S2
Breast: Deferred by me
GI: Soft and Nontender
Rectal: Deferred by Provider
Genito-urinary: Deferred by me
Musculoskeletal: Edema, Right Lower Extrem
Skin: Warm and Dry
Neuro: AO x 3
Psych: Calm
--- NOTE | 2024-10-09 10:51 | CM ---
Addendum entered by Marium Vu RN 10/09/24 12:56:
IMM reviewed.
Auth obtained Ref# [id number]; Auth # [id number]
10/09-10/11; NRD 10/11 to Anna farrell [phone]
Original Note:
Reviewed the chart notes. Auth # [id number] still pended in [employer]..
--- NOTE | 2024-10-09 12:47 | W.PN.NEPH.PH ---
Today's Communication / Plan
-
Sign off
Assessment/Plan
-
69-year-old male presentation with RLE pain, concern for limb ischemia with PAD s/p urgent extensive right iliofemoral endarterectomy with bovine patch angioplasty and profundoplasty and right femoral to [id number]-ptfd popliteal artery bypass
09/25/2024
Other medical history includes atrial flutter, new diagnosis of unclear duration, asymptomatic HTN HLD COPD GERDOngoing tobacco use Daily ETOH use
Renal consultation for hyponatremia decreasing since admission down to 127 with a urine sodium of 6 and a serum osmolality of 281
Impression.
Hyponatremia
DAYRON
PAD status post intervention above
A-flutter
Hypertension
Tobacco use
Moderate alcohol use
Plan
Creatinine stable at 1.2,
Sodium at 134, maintain fluid restriction
cont lasix daily and replace k . wt decreasing
diamox course for me alkalosis
Follow BMP
Off lisinopril until creatinine cliff, BP stable on diltiazem
labs in am
d/c plan
We will sign off
-
-
Date of Service: October 09, 2024
CC / HPI / ROS
-
Chief Complaint:
Hyponatremia
History of Present Illness:
Sodium stable at 134
DAYRON/Cr (baseline creatinine 0.9�1.1) stable at 1.2
Hemodynamically stable
improving metabolic alkalosis
Review of Systems:
No chest pain or shortness of breath
Nonoliguric and weights decreased
Labs
-
Labs:
WBC 14.0 10^3/uL (4.8-10.8) H 10/09/24 06:06
RBC 3.77 10^6/uL (4.70-6.10) L 10/09/24 06:06
Hgb 12.5 g/dL (13.0-18.0) L 10/09/24 06:06
Hct 36.9 % (39.0-52.0) L 10/09/24 06:06
Plt Count 327 10^3/uL (130-400) 10/09/24 06:06
Sodium 134 mmol/L (135-145) L 10/09/24 06:06
Potassium 3.6 mmol/L (3.5-5.1) 10/09/24 06:06
Chloride 101 mmol/L (98-107) 10/09/24 06:06
Carbon Dioxide 27 mmol/L (22-30) 10/09/24 06:06
BUN 15 mg/dl (9-20) 10/09/24 06:06
Creatinine 1.2 mg/dL (0.7-1.3) 10/09/24 06:06
eGFR > 60.00 10/09/24 06:06
Glucose 98 mg/dl (70-99) 10/09/24 06:06
Calcium 9.7 mg/dl (8.4-10.2) 10/09/24 06:06
Phosphorus Cancelled 09/25/24 14:18
Eug-O-Dggkgqrtake Pept 1930 pg/ml 09/29/24 05:40
Albumin 3.3 g/dl (3.5-5.0) L 10/04/24 08:22
Physical Exam
-
Vital Signs:
Vital Signs
Temp Pulse Resp BP Pulse Ox
98.5 F 60 16 129/73 94
10/09/24 07:35 10/09/24 08:00 10/09/24 08:00 10/09/24 07:35 10/09/24 08:00
Cardiovascular:: Regular rate and rhythm
Respiratory:: Bilateral: Coarse
Lung Excursion:: Normal
Abdomen:: Nontender and Soft
Bowel Sounds:: Normal
Extremity Edema:: +2: Right: and None: Left:
Johnson Catheter: No
[2024-10-09] MEDS: MAGNESIUM SULFATE 50 IV (14:27)
--- NOTE | 2024-10-09 17:19 | W.PN.UPDATE ---
Update Note
Progress Note Update
69M s/p debridement with delayed primary closure right foot
- NWB RLE, may be partial weight bearing to R heel in darco wedge shoe for transfers
- PT/OT
- may follow up in office
- anticipate home wound care consisting of aquacel lateral 3rd toe, paint incision with betadine, dsd, light miguel angel
- will reassess on AM rounds
[2024-10-09] MEDS: SUBLIMAZE 50 MCG IV ×2 (17:26→17:35)
[2024-10-09] MEDS: XARELTO 20 MG PO (18:22)
--- NOTE | 2024-10-09 18:22 | PTCARENOTE ---
Pt arrived to [facility] at 1815 from PACU. Pt wiggles toes and capillary refill < 2 seconds. Right foot dressing with 4x4, abd pads, kerlix and miguel angel wrap c/d/i. Pt aware of NWB too RLE and may use heel for transfers. 95% on 2L. Bed locked and in lowest
position. Care ongoing.
[2024-10-09] MEDS: DILAUDID 0.5 MG IV ×2 (20:40→23:40)
[2024-10-09] MEDS: ANESTHETIC LOZENGE 1 LOZENGE PO (23:40)
[2024-10-10 03:15] VITALS: BP 106/68
[2024-10-10] MEDS: DILAUDID 0.5 MG IV ×4 (05:11→14:47)
[2024-10-10 06:00] VITALS: BMI 22.5
[2024-10-10 06:21] LABS: Hematocrit 36.3 % (39.0-52.0); Hemoglobin 12.0 g/dL (13.0-18.0); Mean Corp Hgb Conc. 33.1 g/dL (33.0-37.0); Mean Corpuscular Volume 100.0 fL (80.0-94.0); Platelet Count 318 10^3/uL (130-400); Red Cell Dist. Width 12.3 % (11.5-14.5)
[2024-10-10 06:42] LABS: Blood Urea Nitrogen 14 mg/dl (9-20); Calcium 8.9 mg/dl (8.4-10.2); Carbon Dioxide 27 mmol/L (22-30); Chloride 102 mmol/L (98-107); Estimated Creatinine Clearance 52 ml/min; Glucose 96 mg/dl (70-99); Magnesium 1.9 mg/dl (1.6-2.3); Potassium 3.7 mmol/L (3.5-5.1); Sodium 134 mmol/L (135-145); eGFR 59.10
--- NOTE | 2024-10-10 06:44 | W.PN.UPDATE ---
Update Note
Progress Note Update
69M s/p debridement with delayed primary closure right foot. Doing well this AM, cft wnl, sensation intact to pedal distributions, motor function intact to toes, calves soft supple nontender
- NWB RLE, may be partial weight bearing to R heel in darco wedge shoe for transfers
- PT/OT
- anticipate home wound care 2-3 times per week consisting of aquacel/collagen to lateral 3rd toe, paint incision with betadine, dsd, light miguel angel
- may follow up in office
--- NOTE | 2024-10-10 07:18 | W.PN.HOSP.TC ---
Today's Communication/Plan
-
Continue 40mg Lasix PO, QD
Weight watch daily
discharge to SNF
Assessment / Plan
Assessment / Plan
In summary, this is a 69 yo male With a PMH of HTN, PVD, With poorly healing right fifth toe, with progressive claudication symptoms as an outpatient. He came to the ED with a chronic wound on right foot that has worsened with erythema, purulence
concerning for cellulitis.
# Purulent cellulitis s/p 4th & 5th toe amputation on 09/26
# Peripheral artery disease s/p right iliofemoral endarterectomy with bovine plasty angioplasty and right fem pop bypass
# Limb threatening chronic ischemia
- 4th/5th toe wound present with purulence s/p amputation with podiatry on 09/26
- Podiatry recs: return to OR later this week for closure vs vac, saline packing change daily
- After discussion with podiatry resume Xarelto 09/30/2024 Until the OR date available
- 09/30/2024 Right fourth and fifth partial metatarsal excisions and multiplane debridement was done
-10/01 Vascular surgery- clean wound, decided on vac therapy for healing here.
- 09/30 recommended WBAT RLE in surgical shoe
-10/03 Vascular- Physical therapy as tolerated, monitor WBC, Continue antibiotics, blood culture no growth
-10/04 Wound vac placed
-10/05 employment evaluator/case manager- no available bed until monday
-10/09 - debridement with delayed primary closure right foot
--PT/OT
-WBC downtrending will monitor CBC and temperature
- MRSA screen negative
- cefepime was switched to Zosyn for anaerobic coverage
- 10/03 is day #5/5 of zosyn; total duration of abx is day 5 (started on 09/26)
- he is Afebrile
- continue rosuvastatin 20mg (LDL at goal) and aspirin
- incentive spirometry
# atrial flutter
- new onset, occurred in PACU; was also supposed to follow-up with cardiology for cardiac ischemic workup
- TSH within normal limits; NTproBNP 900s (unsure baseline)
- per cardiology recs: continue diltiazem
- Continue lasix BID, hold lisinopril
- ECHO EF 60-65%, Probable aortic sclerosis without stenosis or regurgitation
-CrCl improved - Xarelto 20mg
# Hyponatremia
- could be chronic; however, downtrending this admission- resolved
- 10/03 nephrology -Discontinue lisinopril, Maintain fluid restriction- Continue Lasix 40 mg p.o. BID, Follow BMP
- will check daily weight
-Nephro- Furosemide 40mg PO QD
--Acetazolamide 250mg- met. alkolosis correction- resolved
- Replete K, Mg
#Acute kidney injury
-Renal US--Negative for hydronephrosis/obstructive uropathy. Atrophic left kidney, which was present on the prior CTA, likely secondary to renal artery stenosis
-Creatinine downtrending 1.3
-Order urine Studies
-Check urine sodium- calculated FeNA- 0.2%
- follow daily weight-- lost 4kgs since admission
#Constipation
- 10/01 Possibly opioid related- scheduled Senna Docusate 1tb BID
-10/02 Started Enema
-Abdominal Xray --Nonspecific bowel gas pattern with large amount of gas and stool within the colon.
-Started Miralax BID , Dulcolax suppository, Milk molassess enema, mineral oil enema--resolved
-Obstruction series
# Tobacco/EtoH use
- spiriva daily and duonebs prn for probable COPD- wheezing heard on PE today continue Duonebs therapy prn
-3L of Oxygen SaO2 97% - D/C oxygen
- nicotine patches
- direct selling counselor on smoking cessation
- monitor for EtOH symptoms
- continue thiamine, folic acid
# Chronic issues per below
# HTN - continue amlodipine 10mg daily, lisinopril 40mg daily, furosemide 20mg daily
# COPD - continue jabzyumppv-jujosgp-nigjmysfgq inhalers daily
# GERD - continue pantoprazole 40mg daily
DVTppx: continue Xarelto 15 mg PO renally dose
Code: full
Diet: Fluid restricted diet
Dispo DC to home care provider per cousin's request- awaiting auth from
Anticipated Discharge: Today
Subjective/Interval History
-
Date of Service: October 10, 2024
He had a wound closure surgery yesterday and says he feels good overall. Wants to go home.
Objective Data
-
Labs:
Laboratory Results
10/10/24
05:18
WBC 12.4 H
Hgb 12.0 L
Hct 36.3 L
Plt Count 318
Sodium 134 L
Potassium 3.7
Chloride 102
Carbon Dioxide 27
BUN 14
Creatinine 1.3
Glucose 96
Calcium 8.9
Vital Signs:
Vital Signs
Temp Pulse Resp BP Pulse Ox
97.6 F 86 19 106/68 92
10/10/24 03:15 10/10/24 03:15 10/10/24 03:15 10/10/24 03:15 10/10/24 03:15
I&O
10/09/24 10/10/24 10/11/24
06:59 06:59 06:59
Intake Total 960 / 960 1035 / 1035
Output Total 900 / 900 700 / 700
Balance 60 / 60 335 / 335
Review of Systems
-
History Source: Patient
Constitutional: Reports No Symptoms
EENT: Reports No Symptoms Reported
Respiratory: Reports No Symptoms (On [place] oxygen )
Cardiac: Reports No Symptoms
Abdomen/GI: Reports No Symptoms
Breast: Reports No Symptoms
Genitourinary: Reports No Symptoms
Musculoskeletal: Reports Edema
Skin: Reports No Symptoms
Neuro: Reports No Symptoms
Endocrine: Reports No Symptoms
Physical Exam
-
General: Well Developed and Well Nourished
HEENT: Normocephalic and Atraumatic
Respiratory: Clear to Auscultation
Cardiac: Regular Rhythm and S1/S2
Breast: Deferred by me
GI: Soft, Nontender and Nondistended
Rectal: Deferred by Provider
Genito-urinary: Deferred by me
Musculoskeletal: Edema, Right Lower Extrem
Skin: Warm and Dry
Neuro: AO x 3
Psych: Calm
[2024-10-10] MEDS: STRIVERDI RESPIMAT 2 PUFF INH (07:24)
[2024-10-10] MEDS: SPIRIVA RESPIMAT 2.5 MCG 2 PUFF INH (07:24)
[2024-10-10 07:40] VITALS: BP 113/76
[2024-10-10] MEDS: MIRALAX 17 GRAMS PO (08:14)
[2024-10-10] MEDS: FOLVITE 1 MG PO (08:15)
[2024-10-10] MEDS: CARDIZEM CD 180 MG PO (08:15)
[2024-10-10] MEDS: NICODERM TRANSDERMAL 14 MG TRANSDERM (08:16)
[2024-10-10] MEDS: PROTONIX 40 MG PO (08:16)
[2024-10-10] MEDS: VITAMIN B1 100 MG PO (08:16)
[2024-10-10] MEDS: ASPIR LOW (ENTERIC COATED) 81 MG PO (08:17)
[2024-10-10] MEDS: CRESTOR 20 MG PO (08:17)
[2024-10-10] MEDS: LASIX 40 MG PO (08:17)
[2024-10-10] MEDS: SENOKOT-S 1 TABLET PO (08:17)
--- NOTE | 2024-10-10 10:48 | CM ---
Addendum entered by Marium Vu RN 10/10/24 14:15:
Patient agreeable to [facility].
Call report to: [phone]
Fax report to: [phone]
Medical necessity and transport forms on chart.
Original Note:
Reviewed the chart notes and spoke with the patient at the bedside. Auth obtained for [facility], but patient unsure if wanting SNF or home with services. PT to evaluate patient today. This will assist in discharge disposition. CM
continues to be available to patient/family and is monitoring medical plan for needs at discharge.
Plan: Discharge plans will depend on patient's progress with PT today.
[2024-10-10 11:25] VITALS: BP 117/85
--- NOTE | 2024-10-10 13:51 | W.DCSUMMARY ---
Documented by User: Keyona Prakash MD, Resident 10/10/24 15:11
Discharge Summary
Discharge Data
Date of Admission: 09/25/24
Date of Discharge: 10/10/24
-
Pending Results: No
Hospital Course
Discharging Physician : Dr. Keyona Prakash, Dr. Chadd Mendoza
Disposition : [facility]
Primary care physician : Dr. Carl Samuel
Principal Discharge diagnosis : Peripheral arterial disease, nonhealing wound
Chronic Discharge diagnosis :
Atrial Flutter
Hyponatremia
Hypertension
GERD
Tobacco/Ethanol Use
Hospital Course :
The patient presented with a wound between the 4th and 5th digits of the right foot. Symptoms had been present for over two months, but several days prior to admission he developed purulent drainage, redness, and discomfort. He also reported
exertional leg cramping of the right lower extremity consistent with claudication, as well as intermittent discomfort at rest. On 09/25/2024, he underwent right lower extremity angioplasty and femoropopliteal bypass. Podiatry was consulted for
possible amputation. Postoperatively, he developed new-onset atrial flutter and was maintained in rate-controlled rhythm with diltiazem. On 09/26, he underwent right 4th and 5th toe amputations. On 09/30, he underwent right 4th and 5th partial
metatarsal excisions with multiplane debridement. On 10/09, he underwent further debridement with delayed primary closure of the right foot. He received IV vancomycin and cefepime during hospitalization.
Regarding prior imaging (CT chest 06/07/2023), he remains due for follow-up of a right upper lobe pulmonary nodule. Given his history, he is considered high risk for lung cancer and will require outpatient follow-up with repeat chest CT after
discharge.
Cardiology: Outpatient follow-up for his ECHO.
Orthopedics: Outpatient follow-up.
Important imaging findings : Chest Xray: Chronic volume loss within the right hemithorax with associated pleural parenchymal scarring. Small loculated pleural effusion may also be present.
Procedure findings :
09/25/2024
1. Extensive right iliofemoral endarterectomy (distal external iliac artery, common femoral artery, profunda femoris artery, origin of SFA) with bovine pericardial patch angioplasty and profundoplasty.
2. Right femoral to [id number] popliteal artery bypass with 8 mm ringed [place] Propaten graft
3. Right fourth and fifth toe amputations.
4. Right fourth and fifth partial metatarsal excisions and multiplane debridement
5. Debridement with delayed primary closure right foot.
Discharge Plan
-
Patient Disposition: Custodial/SNF
Discharge Diagnosis/Procedures: Limb threatening chronic ischemia
Atrial Flutter
DAYRON
Hyponatremia
Hypertension
GERD
Tobacco/Ethanol Use
Condition: Fair
Diet: Regular
Activity: No strenuous activity
Driving Restrictions: Not until seen by your Dr
Bathing Restrictions: OK to Shower
Blood Work: CMP, magnesium level, CBC in one week (may need to adjust potassium chloride supplement dose)
Other Services: PT
Wound Care: anticipate home wound care 2-3 times per week consisting of aquacel/collagen to lateral 3rd toe, paint incision with betadine, dsd, light ac
Specialty Instructions: Weigh Daily- Call MD for wt gain/loss 3 lbs overnight/5 lbs in 1 week
Activity Restrictions/Additional Instructions:
R foot-local care as per podiatry surgeon's instructions.
Weight bear instructions as per podiatry surgeon's instructions.
Elevate heels off bed with pillow/s
Follow up with Dr. Tyler Cat.
Follow up with vascular surgeon.
Referrals:
Kleber Dubois MD [Active, Pulmonary Medicine]
Referral Note: needs PFT
Needs follow up chest CT for lung cancer screening and prior nodule follow up
1-2 mo
Carl Samuel MD [Family Provider, [facility]]
Heena Adrian PA-C [Specified Professional Personl, Vascular Surgery] - 10/18/24 9:30 am
Referral Note: Vascular surgery office follow-up
Wesley Low DPM [Active, Orthopedics] - in two weeks
Additional Discharge Medication Instructions: Follow up with Pulmonology for follow up on your Lung Nodule
Follow up with Vascular surgery on 10/11/2024 2pm
Follow up with Podiatry in 2weeks
Prescriptions:
New
ipratropium-albuterol 0.5 mg-3 mg(2.5 mg base)/3 mL Solution For Nebulization
3 ml inhalation R Q4HPRN PRN (Reason: wheezing) 30 Days Qty: 1 0RF
polyethylene glycol 3350 17 gram Powder In Packet
17 g PO BID 30 Days Qty: 30 0RF
diltiazem HCl 180 mg Capsule,Extended Release 24hr
180 mg PO DAILY 30 Days Qty: 30 0RF
folic acid 1 mg Tablet
1 mg PO DAILY 30 Days Qty: 30 0RF
rosuvastatin 20 mg Tablet
20 mg PO DAILY 30 Days Qty: 30 0RF
thiamine mononitrate (vit B1) 100 mg Tablet
100 mg PO DAILY 30 Days Qty: 30 0RF
sennosides-docusate sodium 8.6-50 mg Tablet
1 tab PO BID 30 Days Qty: 60 0RF
oxycodone 5 mg Tablet
10 mg PO Q6HPRN PRN (Reason: moderate pain) 7 Days Qty: 14 0RF
Xarelto 20 mg Tablet
20 mg PO QPM 30 Days Qty: 30 0RF
potassium chloride 10 mEq capsule, extended release
10 meq PO DAILY 30 Days Qty: 30 0RF
furosemide 40 mg Tablet
40 mg PO DAILY 30 Days Qty: 30 0RF
potassium chloride 10 mEq packet
10 meq PO DAILY Qty: 15 0RF
magnesium 200 mg tablet
200 mg PO DAILY Qty: 7 0RF
Continued
omeprazole 40 mg Capsule,Delayed Release(Dr/Ec)
40 mg PO DAILY
aspirin 81 mg Tablet,Delayed Release (Dr/Ec)
81 mg PO DAILY
Stiolto Respimat 2.5-2.5 mcg/actuation Mist
2 puff INHALATION R DAILY
Discontinued
rosuvastatin [Crestor] 10 mg Tablet
10 mg PO DAILY
naproxen 375 mg Tablet
375 mg PO DAILYPRN PRN (Reason: mild pain)
Theragen Tablet
1 tab PO DAILY
amlodipine [Norvasc] 10 mg Tablet
10 mg PO HS
furosemide [Lasix] 20 mg Tablet
40 mg PO DAILY
lisinopril 40 mg Tablet
40 mg PO DAILY
Discharge Orders:
Discharge Patient (As Directed); Ordered 10/10/24
Ordered By: Keyona Prakash
Discharge Date and Time
Discharge Date/Time: 10/10/24 16:10
Print Language: THAI

Documented by User: Chadd Mendoza DO 10/11/24 14:52
Discharge Summary
Discharge Data
Date of Admission: 09/25/24
Date of Discharge: 10/11/24
Total time spent discharging patient (in min): 34
Discharge Plan
-
Patient Disposition: Custodial/SNF
Discharge Diagnosis/Procedures: Limb threatening chronic ischemia
Atrial Flutter
DAYRON
Hyponatremia
Hypertension
GERD
Tobacco/Ethanol Use
Condition: Fair
Diet: Regular
Activity: No strenuous activity
Driving Restrictions: Not until seen by your Dr
Bathing Restrictions: OK to Shower
Blood Work: CMP, magnesium level, CBC in one week (may need to adjust potassium chloride supplement dose)
Other Services: PT
Wound Care: anticipate home wound care 2-3 times per week consisting of aquacel/collagen to lateral 3rd toe, paint incision with betadine, dsd, light ac
Specialty Instructions: Weigh Daily- Call MD for wt gain/loss 3 lbs overnight/5 lbs in 1 week
Activity Restrictions/Additional Instructions:
R foot-local care as per podiatry surgeon's instructions.
Weight bear instructions as per podiatry surgeon's instructions.
Elevate heels off bed with pillow/s
Follow up with Dr. Tyler Cat.
Follow up with vascular surgeon.
Referrals:
Kleber Dubois MD [Active, Pulmonary Medicine]
Referral Note: needs PFT
Needs follow up chest CT for lung cancer screening and prior nodule follow up
1-2 mo
Carl Samuel MD [Family Provider, Family Practice]
Heena Adrian PA-C [Specified Professional Personl, Vascular Surgery] - 10/18/24 9:30 am
Referral Note: Vascular surgery office follow-up
Wesley Low DPM [Active, Orthopedics] - in two weeks
Additional Discharge Medication Instructions: Follow up with Pulmonology for follow up on your Lung Nodule
Follow up with Vascular surgery on 10/11/2024 2pm
Follow up with Podiatry in 2weeks
Prescriptions:
New
ipratropium-albuterol 0.5 mg-3 mg(2.5 mg base)/3 mL Solution For Nebulization
3 ml inhalation R Q4HPRN PRN (Reason: wheezing) 30 Days Qty: 1 0RF
polyethylene glycol 3350 17 gram Powder In Packet
17 g PO BID 30 Days Qty: 30 0RF
diltiazem HCl 180 mg Capsule,Extended Release 24hr
180 mg PO DAILY 30 Days Qty: 30 0RF
folic acid 1 mg Tablet
1 mg PO DAILY 30 Days Qty: 30 0RF
rosuvastatin 20 mg Tablet
20 mg PO DAILY 30 Days Qty: 30 0RF
thiamine mononitrate (vit B1) 100 mg Tablet
100 mg PO DAILY 30 Days Qty: 30 0RF
sennosides-docusate sodium 8.6-50 mg Tablet
1 tab PO BID 30 Days Qty: 60 0RF
oxycodone 5 mg Tablet
10 mg PO Q6HPRN PRN (Reason: moderate pain) 7 Days Qty: 14 0RF
Xarelto 20 mg Tablet
20 mg PO QPM 30 Days Qty: 30 0RF
potassium chloride 10 mEq capsule, extended release
10 meq PO DAILY 30 Days Qty: 30 0RF
furosemide 40 mg Tablet
40 mg PO DAILY 30 Days Qty: 30 0RF
potassium chloride 10 mEq packet
10 meq PO DAILY Qty: 15 0RF
magnesium 200 mg tablet
200 mg PO DAILY Qty: 7 0RF
Continued
omeprazole 40 mg Capsule,Delayed Release(Dr/Ec)
40 mg PO DAILY
aspirin 81 mg Tablet,Delayed Release (Dr/Ec)
81 mg PO DAILY
Stiolto Respimat 2.5-2.5 mcg/actuation Mist
2 puff INHALATION R DAILY
Discontinued
rosuvastatin [Crestor] 10 mg Tablet
10 mg PO DAILY
naproxen 375 mg Tablet
375 mg PO DAILYPRN PRN (Reason: mild pain)
Theragen Tablet
1 tab PO DAILY
amlodipine [Norvasc] 10 mg Tablet
10 mg PO HS
furosemide [Lasix] 20 mg Tablet
40 mg PO DAILY
lisinopril 40 mg Tablet
40 mg PO DAILY
Discharge Orders:
Discharge Patient (As Directed); Ordered 10/10/24
Ordered By: Keyona Prakash
Discharge Date and Time
Discharge Date/Time: 10/10/24 16:10
Print Language: THAI
[2024-10-10 15:45] VITALS: BP 124/78
== END 2024-10-10 16:10 | DRG 271 ==
LOC: 2 SOUTH 11:59
PROVIDERS: Nurse Practitioner; Physician Assistant; Specialist; Student in an Organized Health Care Education/Training Program; Surgery Vascular Surgery; ADMITTING PHYSICIAN Internal Medicine; CONSULT PHYSICIAN Internal Medicine Cardiovascular Disease; CONSULT PHYSICIAN Internal Medicine Critical Care Medicine; CONSULT PHYSICIAN Internal Medicine Nephrology; EMERGENCY PHYSICIAN Student in an Organized Health Care Education/Training Program; FAMILY PHYSICIAN Family Medicine; OTHER PHYSICIAN Student in an Organized Health Care Education/Training Program
PROC: 04UK0KZ Supplement Right Femoral Artery with Nonautologous Tissue Substitute, Open Approach (ICD-10-PCS; 2024-09-25)
PROC: 04CK0ZZ Extirpation of Matter from Right Femoral Artery, Open Approach (ICD-10-PCS; 2024-09-25)
PROC: 04CH0ZZ Extirpation of Matter from Right External Iliac Artery, Open Approach (ICD-10-PCS; 2024-09-25)
PROC: 041K0JL Bypass Right Femoral Artery to Popliteal Artery with Synthetic Substitute, Open Approach (ICD-10-PCS; 2024-09-25)
PROC: 04UH0KZ Supplement Right External Iliac Artery with Nonautologous Tissue Substitute, Open Approach (ICD-10-PCS; 2024-09-25)
PROC: 0Y6V0Z0 Detachment at Right 4th Toe, Complete, Open Approach (ICD-10-PCS; 2024-09-26)
PROC: 0Y6X0Z0 Detachment at Right 5th Toe, Complete, Open Approach (ICD-10-PCS; 2024-09-26)
PROC: 0QBN0ZZ Excision of Right Metatarsal, Open Approach (ICD-10-PCS; 2024-09-30)
PROC: 0HXMXZZ Transfer Right Foot Skin, External Approach (ICD-10-PCS; 2024-10-09)
DX: I70.261 Atherosclerosis of native arteries of extremities with gangrene, right leg (principal); E87.1 Hypo-osmolality and hyponatremia; I48.92 Unspecified atrial flutter; I74.5 Embolism and thrombosis of iliac artery; L03.115 Cellulitis of right lower limb; L97.518 Non-pressure chronic ulcer of other part of right foot with other specified severity; K55.1 Chronic vascular disorders of intestine; J98.11 Atelectasis; N17.9 Acute kidney failure, unspecified; F17.210 Nicotine dependence, cigarettes, uncomplicated; J44.9 Chronic obstructive pulmonary disease, unspecified; I10 Essential (primary) hypertension; F10.20 Alcohol dependence, uncomplicated; N26.1 Atrophy of kidney (terminal); J61 Pneumoconiosis due to asbestos and other mineral fibers; K21.9 Gastro-esophageal reflux disease without esophagitis; E78.00 Pure hypercholesterolemia, unspecified; G62.9 Polyneuropathy, unspecified; N40.0 Benign prostatic hyperplasia without lower urinary tract symptoms; D75.839 Thrombocytosis, unspecified; I70.0 Atherosclerosis of aorta; E87.6 Hypokalemia; E87.70 Fluid overload, unspecified; K59.00 Constipation, unspecified; Z79.82 Long term (current) use of aspirin; Z86.711 Personal history of pulmonary embolism; Z87.820 Personal history of traumatic brain injury; Z87.828 Personal history of other (healed) physical injury and trauma; Z82.49 Family history of ischemic heart disease and other diseases of the circulatory system; Z71.6 Tobacco abuse counseling
CPT/HCPCS: 35656; 71045; 73630; 74022; 76775; 80048; 80053; 80061; 80202; 80306; 80307; 81003; 81015; 82010; 82077; 82570; 82962; 82977; 83036; 83735; 83880; 83930; 83935; 84100; 84300; 84443; 85025; 85027; 85610; 85652; 85730; 86140; 86850; 86900; 86901; 87040; 87070; 87075; 87076; 87077; 87147; 87186; 87205; 88304; 88305; 88311; 93005; 93306; 94640; 97116; 97163; 97167; 97530; 97535; 99285; Q9950

== ENCOUNTER → 2024-11-12 10:01 | Outpatient (REF) | payer OTHER, SELFPAY | LOC: RAD 10:01 | PROVIDERS: ATTENDING PHYSICIAN Physician Assistant | DX: I73.9 Peripheral vascular disease, unspecified (principal) | CPT/HCPCS: 93922; 93925 ==